=== PATIENT | male | born 1940 | race Caucasian/White ===

== ENCOUNTER → 2019-09-25 11:09 | Outpatient (BNVA) | payer MEDICARE, SELFPAY | PROVIDERS: Family Provider Nurse Practitioner; Visit Provider Nurse Practitioner | DX: E11.65 Type 2 diabetes mellitus with hyperglycemia (principal); I10 Essential (primary) hypertension; I25.10 Atherosclerotic heart disease of native coronary artery without angina pectoris; E78.5 Hyperlipidemia, unspecified; H93.12 Tinnitus, left ear | CPT/HCPCS: 80053; 83036; 84443 ==

== ENCOUNTER 2020-02-14 18:04 | Inpatient (IN) | payer MEDICARE, SELFPAY ==
[2020-02-14] VITALS (9 sets, daily range): BP systolic 143–178; BP diastolic 66–86; PULSE 56–82; RESP 16–20; TEMP 36.8; O2SAT 96–98; BMI 25.9
--- NOTE | 2020-02-14 18:19 | XR_ITS ---
WS: [id number] Portable AP upright chest, 02/14/2020 Clinical Data: chest pain Comparison: PA and lateral chest, 08/18/2019 Findings: No nodules, masses or effusions are seen. The heart is normal. The pulmonary vascularity is not increased. No pneumonia or pneumothorax is seen. Midline sternotomy sutures are seen. The aortic arch and descending aorta show calcification. XR/XR chest 1V portable [id number] Impression: Atherosclerosis.
--- NOTE | 2020-02-14 18:19 | ECG_ITS ---
Measurements Intervals [place] Rate: 67 P: 59 MN: 182 QRS: 8 QRSD: 105 T: 71 QT: 375 QTc: 398 SINUS RHYTHM POSSIBLE LEFT ATRIAL ENLARGEMENT [-0.1mV P WAVE IN V1/V2] NONSPECIFIC ST & T-WAVE ABNORMALITY No previous ECG available for comparison Electronically Signed On 02-15-2020 20:51:58 CDT by Rosario Girard M.D. [id number]
[2020-02-14 18:44] LABS: INR 1.02 (0.8-1.2)
[2020-02-14 18:51] LABS: Basophils % 0.5 %; Eosinophils # 0.1 10^3/uL (0.0-0.8); Hematocrit 46.9 % (42.0-52.0); Hemoglobin 14.9 g/dL (11.7-16.6); Lymphocytes # 2.4 10^3/uL (0.8-4.8); Lymphocytes % 33.4 %; Mean Corpuscular HGB Conc 31.8 g/dL (30.0-36.0); Mean Corpuscular Hemoglobin 29.4 pg (28.0-34.0); Mean Corpuscular Volume 92.7 fL (80-94); Mean Platelet Volume 11.2 fL (7.4-10.4); Monocytes # 0.5 10^3/uL (0.2-0.9); Monocytes % 6.4 %; Neutrophils # 4.3 10^3/uL (1.8-7.7); Neutrophils % 58.4 %; Nucleated Red Blood Cells % 0 %; Platelet Count 165 10^3/cmm (130-400); Red Blood Count 5.06 10^6/uL (4.1-5.3); Red Cell Distribution Width 13.2 % (12.1-15.1); White Blood Count 7.3 10^3/uL (4.0-10.0)
--- NOTE | 2020-02-14 18:54 | PC.NURSE ---
Nitro drip started at this time.
[2020-02-14] MEDS: nitroglycerin drip 50 MG/250 ML PREMIX IV (18:55)
[2020-02-14 19:00] LABS: Troponin(5th) Baseline 45 ng/L (0-15)
--- NOTE | 2020-02-14 19:01 | W.ED.CHESTPA ---
HPI - Chest Pain General: Chief Complaint: Chest Pain Stated Complaint: CHEST PAIN X 2 DAYS Time Seen by Provider: 02/14/20 18:07 Source: patient and EMS Mode of arrival: EMS Limitations: no limitations History of Present Illness: HPI narrative: Patient is an 80-year-old gentleman with a history of coronary artery disease status post three-vessel CABG and stents. He presents with chest pain that has been on and off for about 2 days but got much worse last night about 11 PM. He took a nitroglycerin last night and the pain improved. 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 He therefore called the ambulance and he was given another nitroglycerin which helped his pain but did not relieve it. Ambulance called [facility] and they started him on a nitroglycerin drip which took his pain down to 0. He denies dizziness, nausea, diaphoresis. EKG findings by the ground ambulance and [facility] shows ST depressions from V3 through V6 complaint: chest pain Associated symptoms: Deny abdominal pain, dyspnea, fever(s), nausea, palpitations or vomiting Review of Systems General: Reports: 10 or more systems reviewed and unremarkable except in HPI and below Const: Denies: fever(s), chills or body aches Eyes: Denies: change in vision or blurry vision ENMT: Denies: throat pain, enlarged tonsils, odynophagia, hoarseness, mouth pain or swelling of lips/tongue Card: Reports: chest pain; Denies: palpitations, irregular heart rhythm, edema or swelling of feet/ankles Resp: Denies: dyspnea, productive cough or non-productive cough GI: Denies: abdominal pain, nausea or vomiting : Denies: flank pain, dysuria, urinary frequency, urinary urgency or urinary hesitancy Musc: Denies: neck pain, back pain or extremity swelling Skin/Breast: Denies: rash, pruritus or erythema Neuro: Denies: headache(s), numbness in extremities or weakness in extremities Endo: Denies: polyuria, polydipsia or tired all the time [facility] ED PFSH: Medical History Aortic heart murmur Atherosclerotic heart disease of [place] coronary artery without angina pectoris B12 deficiency Benign essential HTN Carotid artery stenosis Less than 50% stenosis bilateral ICA moderate lateral mentis plaque Chronic gastroesophageal reflux disease Diabetes mellitus with neuropathy Dyslipidemia Mitral regurgitation Mitral regurgitation PAD (peripheral artery disease) PTSD (post-traumatic stress disorder) [place] PUD (peptic ulcer disease) SOB (shortness of breath) Type 2 diabetes mellitus with hyperglycemia Vitamin D insufficiency Surgical History [place]/O cardiac [place] [facility] [place] no revascularizable lesion was managed medically History of appendectomy History of coronary artery stent placement 2012 Found to have three-vessel coronary disease high-grade lesion in venous graft to the obtuse marginal, [place] to the LAD was found to be patent, underwent PCI of the venous graft, History of percutaneous coronary intervention [place]: June Saphenous venous graft to obtuse marginal 1 and 2 History of umbilical hernia repair 1984 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 Family History Other Diabetes Heart disease Hypertension Social History Smoking and tobacco status: never smoked Second hand smoke exposure: No Smoking risk assessment/counseling performed?: No Alcohol intake: never Desire information about alcohol rehabilitation?: No Counseling given: No Desire information about substance/drug rehabilitation?: No Counseling given: No Caregiver/support person: No Lives independently: Yes Household members: spouse Housing: House Marital status: Number of children: 4 Number of grandchildren: 20 service: No Pets and animals: Yes Pets & animals: cat(s) History of recent travel: No Current gender identity: Male Physical Exam Const: COMMON NORMALS: no acute distress, average body habitus, patient oriented x3, no limitations, healthy appearing, alert and well nourished HENMT: COMMON NORMALS: normocephalic, atraumatic and moist oral mucous membranes HEAD & SCALP: normocephalic and atraumatic Eye: COMMON NORMALS: Equal, round and reactive pupils present, EOMs intact bilaterally, conjunctivae normal and no scleral icterus CONJUNCTIVA: Yes conjunctivae normal PUPIL: Yes Equal, round and reactive pupils present Neck/C-Spine: COMMON NORMALS: full ROM, supple, no meningeal signs, no JVD and No carotid bruits Chest: COMMONS NORMALS: normal inspection of the chest and normal palpation of entire chest wall Resp: COMMON NORMALS: normal respiratory effort, No retractions, No use of accessory muscles, clear to auscultation bilaterally and percussion normal AUSCULTATION: clear to auscultation bilaterally PERCUSSION: percussion normal Cardio: COMMON NORMALS: no JVD, regular rate, regular rhythm, S1 normal heart sound present, S2 normal heart sound present, No gallops present (Cardio), No clicks present (Cardio), No murmurs present (Cardio), No rub (Cardio) and Peripheral pulses 2+ throughout RATE: regular rate RHYTHM: regular rhythm HEART SOUNDS: S1 normal heart sound present and S2 normal heart sound present PERIPHERAL PULSES: Peripheral pulses 2+ throughout GI: COMMON NORMALS: Normal to inspection, nondistended, normoactive bowel sounds present, Soft to palpation, non-tender, No hepatosplenomegaly present, no masses and no bruits PALPATION: Yes Soft to palpation and Yes No hepatosplenomegaly present : COMMON NORMALS: Yes no CVA tenderness BLADDER/KIDNEY EXAM: Yes no CVA tenderness Back/Pelvis: COMMON NORMALS: no CVA tenderness Extremity: COMMON NORMALS: normal to inspection, full ROM, capillary refill normal, no calf tenderness and no pedal edema Neuro: COMMON NORMALS: patient oriented x3 SENSORIUM/ORIENTATION: Yes alert MENINGEAL SIGNS: Yes no meningeal signs Skin: COMMON NORMALS: no rashes or lesions noted, no wounds, turgor normal, no jaundice, no petechiae and no mottling GENERAL SKIN EXAM: no rashes or lesions noted and turgor normal Course Reevaluation(s): Reevaluation #1: Discussed his EKG findings and baseline troponin with the patient features suggestive of a non-STEMI. Advised inpatient stay and management of further work-up. He voiced understanding and is in agreement with the plan. Time: 19:30 Consultations: Consultation #1: Discussed with Dr. Girard, side boss marketing automation specialist. Admit the patient and treat as a case of a non-STEMI. Time: 19:33 Consultation #2: Dr. Blum, hospitalist. He kindly accepted the patient to his service. Time: 19:40 Vital Signs: Vital signs: Vital Signs Temperature 98.3 F 02/14/20 18:06 Pulse Rate 58 L 02/14/20 20:56 Respiratory Rate 16 02/14/20 20:56 Blood Pressure 166/86 02/14/20 20:56 Pulse Oximetry 96 02/14/20 18:14 MDM - Chest Pain MDM Narrative: Medical decision making narrative: Patient with clinical features suggestive of a non-STEMI. He has been having chest pain for about 2 days but became more persistent today. He does have EKG changes with ST depression in the lateral leads and his troponin is elevated. He is being admitted as a case has a non-STEMI for further evaluation and management. Medical Records: Attestation: I reviewed the patient's medical records. Lab Data: Attestation: I reviewed the patient's lab results. Labs: Lab Results 02/14/20 02/14/20 02/14/20 Range/Units 18:30 18:30 18:30 WBC 7.3 (4.0-10.0) 10^3/ uL RBC 5.06 (4.1-5.3) 10^6/u L Hgb 14.9 (11.7-16.6) g/dL Hct 46.9 (42.0-52.0) % MCV 92.7 (80-94) fL MCH 29.4 (28.0-34.0) pg MCHC 31.8 (30.0-36.0) g/dL RDW 13.2 (12.1-15.1) % Plt Count 165 (130-400) 10^3/c mm MPV 11.2 H (7.4-10.4) fL Neut % (Auto) 58.4 % Lymph % (Auto) 33.4 % [place] % (Auto) 6.4 % Eos % (Auto) 1.0 % Baso % (Auto) 0.5 % Neut # (Auto) 4.3 (1.8-7.7) 10^3/u L Lymph # (Auto) 2.4 (0.8-4.8) 10^3/u L [place] # (Auto) 0.5 (0.2-0.9) 10^3/u L Eos # (Auto) 0.1 (0.0-0.8) 10^3/u L Baso # (Auto) 0.0 (0.0-0.1) 10^3/u L Nucleated RBC % (a uto) 0 % Nucleated RBCs # 0.0 /100WBC PT 13.70 H (10.5-13.3) SECO NDS INR 1.02 (0.8-1.2) Troponin T Baselin e 45 H (0-15) ng/L EKG Data^: EKG 1: Attestation: I personally reviewed and interpreted this EKG as follows: EKG interpretation date: 02/14/20 EKG interpretation time: 12:23 Prior EKG tracings: not available for review Interpretation: Normal sinus rhythm. Heart rate [address] depression V4 V5 and V6. ST depression in leads I and II. Discharge Plan Discharge Patient Disposition: Admitted As Inpatient Admit Provider: Allan Blum Clinical Impression: Non-ST elevated myocardial infarction Condition: Stable Coding Level of Care Code ED Construction Executive for Chg Fwd Exam Comprehensive
--- NOTE | 2020-02-14 19:44 | P.HP_ITS ---
Providers/Chief Complaint Primary Care Provider: Martínez Diehl, ANTOLIN-C Chief Complaint: CHEST PAIN X 2 DAYS History of Present Illness Oscar Telles is a 80 year old male who has complex cardiac history, CABG 1992, cardiac catheterization 2012 three-vessel disease, [place] to LAD patent, PCI of venous graft, 2016 and 18 percutaneous intervention of saphenous venous graft to obtuse marginal in [place], 2014 cardiac catheterization at [facility] [place] revealed no revascularizable lesion, follows up with Dr. Girard came in today with persistent chest pain. 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 He is describes this chest pain as chest pressure, 7/10, shortness of breath on exertion and without orthopnea, PND, fever, chills, nausea or vomiting but this pain is radiating towards his shoulder blades. No history of syncope or abdominal pain. Patient has not smoked in his life, no previous history of aortic aneurysm or dissection. He was flown to the [facility] ER. He was started on nitro drip in the helicopter Diagnostics in the ER revealed ACS, he was given first full therapeutic dose of Lovenox, I am obtaining CTA chest abdomen pelvis to rule out aortic dissection which could present with ACS Troponin 45, EKG showing ST depression in anterolateral leads He is bradycardic, hypertensive, chest x-ray did not show widened mediastinum Currently on nitro drip at 10 mics per minute No pulse deficit noted on clinical exam Review of Systems Const: Reports: fatigue and malaise; Denies: fever(s), chills or body aches Eyes: Denies: change in vision ENMT: Denies: throat pain Card: Reports: chest pain and dyspnea on exertion; Denies: irregular heart rhythm, swelling of feet/ankles, syncope or orthopnea Resp: Reports: dyspnea GI: Denies: abdominal pain, nausea or vomiting : Denies: flank pain Musc: Denies: neck pain Skin/Breast: Denies: rash Neuro: Denies: headache(s) Psych: Denies: anxiety Endo: Denies: polyuria Jon[place]/Lymph: Denies: easy bruising All/Imm: Denies: urticaria Medications/Allergies Home Medications Medication Instructions Recorded Confirmed Last Taken Type albuterol sulfate 2.5 mg INHALATION Q4H PRN 09/22/19 10/26/19 Unknown History blood sugar diagnostic #10 each 09/22/19 10/26/19 Unknown History cholecalciferol (vitamin D3) 25 2,000 unit PO QDAY 09/22/19 10/26/19 Unknown History mcg (1,000 unit) capsule cyanocobalamin (vitamin B-12) 1,000 mcg PO QDAY 09/22/19 10/26/19 Unknown History 1,000 mcg tablet amlodipine 5 mg tablet 5 mg PO QDAY #90 tab 09/25/19 10/26/19 Unknown Rx fenofibrate nanocrystallized 48 mg 48 mg PO QDAY #90 tab 09/25/19 10/26/19 Unknown Rx tablet sertraline 100 mg tablet 100 mg PO QDAY tab 09/25/19 10/26/19 Unknown History nitroglycerin 0.4 mg sublingual 0.4 mg SUBLINGUAL Q5M PRN 30 Days 10/26/1910/26 Unknown Rx tablet #30 tab insulin human U-100 NPH-regulr See Rx Instructions SUBCUT BID #60 11/15/19 Unknown Rx 70-30 mix 100 unit/mL subcutaneous ml susp irbesartan 150 mg tablet 150 mg PO QDAY #90 tab 01/17/20 Unknown Rx clopidogrel 75 mg tablet 75 mg PO QDAY #90 tab 01/22/20 Unknown Rx Allergies Allergy/AdvReac Type Severity Reaction Status Date / Time NSAIDS (Non-Steroidal Allergy Unknown Verified 09/21/19 11:05 Anti-Inflamma Penicillins Allergy Unknown Verified 09/21/19 11:05 sulfamethoxazole Allergy Unknown Verified 09/21/19 11:08 [From Bactrim] trimethoprim [From Bactrim] Allergy Unknown Verified 09/21/19 11:08 metformin AdvReac ADR-Gastrointestinal Verified 09/21/19 11:05 Upset PFSH Acute PFSH: Medical History Aortic heart murmur Atherosclerotic heart disease of [place] coronary artery without angina pectoris B12 deficiency Benign essential HTN Carotid artery stenosis Less than 50% stenosis bilateral ICA moderate lateral mentis plaque Chronic gastroesophageal reflux disease Diabetes mellitus with neuropathy Dyslipidemia Mitral regurgitation Mitral regurgitation PAD (peripheral artery disease) PTSD (post-traumatic stress disorder) [place] P[place] (peptic ulcer disease) SOB (shortness of breath) Type 2 diabetes mellitus with hyperglycemia Vitamin D insufficiency Surgical History H/O cardiac catheterization At [facility] [place] in 2014 no revascularizable lesion was managed medically History of appendectomy History of coronary artery stent placement 2012 Found to have three-vessel coronary disease high-grade lesion in venous graft to the obtuse marginal, [place] to the LAD was found to be patent, underwent PCI of the venous graft, History of percutaneous coronary intervention [place]: June Saphenous venous graft to obtuse marginal 1 and 2 History of umbilical hernia repair 1983 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 Family History Other Diabetes Heart disease Hypertension Social History Smoking and tobacco status: never smoked Second hand smoke exposure: No Smoking risk assessment/counseling performed?: No Alcohol intake: never Desire information about alcohol rehabilitation?: No Counseling given: No Desire information about substance/drug rehabilitation?: No Counseling given: No Caregiver/support person: No Lives independently: Yes Household members: spouse Housing: House Marital status: Number of children: 4 Number of grandchildren: 20 service: No Pets and animals: Yes Pets & animals: cat(s) History of recent travel: No Current gender identity: Male Vitals/I&O/Wt Last Vital Signs Temp 98.3 F 02/14/20 18:06 Pulse 68 02/14/20 18:14 Resp 19 H 02/14/20 18:14 BP 160/73 02/14/20 18:14 Pulse Ox 96 02/14/20 18:14 Weight last 48 hrs Weight 79.832 kg Physical Exam Narrative: EXAM NARRATIVE: Head to toe examination Patient uncomfortable in his bed Currently chest pain-free No pulse deficit No visual disturbance Hearing impaired right better than left S1, S2 sinus bradycardia systolic murmur grade 2/6 Abdomen soft nontender has open heart surgery scar aguilar Lower extremity no signs of edema gangrene or ulcer Appropriate mood and affect EOMI, PERRLA No pulsating mass noted around abdominal midline region No active respiratory Bilateral good breath sounds with mild crackles left greater than right Data : 02/14/20 18:30 Other data: Supplemental Info 07/2019 Features of aortic valve sclerosis Normal LV size with borderline normal ejection fraction of 50- 55%. Wall motion abnormality as mentioned above Mild concentric left ventricular hypertrophy Type I diastolic dysfunction. Mild biatrial enlargement. Thickened mitral valve. Moderate mitral valve regurgitation. Mild tricuspid valve regurgitation. Estimated pulmonary artery peak systolic pressure of 25 mmHg There is no pericardial effusion. There are no intracardiac masses. Compared to the previous study from 09/03/2014, the wall motion abnormalities appeared to be new ECHOCARDIOGRAPHY, COMPLETE ([id number]) 09/03/2014 Normal left ventricular size, systolic function and wall thickness, with no regional wall motion abnormalities. Normal left ventricular wall thickness. Grade I/IV diastolic dysfunction (abnormal relaxation filling pattern), normal to mildly elevated filling pressures. Left ventricular ejection fraction is estimated at 65 %. Structurally normal mitral valve. Mild-moderate mitral valve regurgitation. There are no prior echocardiogram studies to compare. EVENT MONITOR ([id number]) 08/09/2014 - 08/29/2014 INTERPRETATION: A total of 6 strips were transmitted. Patient activated: 3. Rest of 3 were auto-detected. None of them were critical or serious. Baseline heart rate was 61 beats per minute. One strip transmitted on 08/24/2014 at 2 2:07 PM showed sinus arrhythmia with atrial run for three beats at 80bpm. Rest of all the strips showed sinus rhythm with sinus arrhythmia. LEFT HEARTH CATHETERIZATION ([id number]) 10/18/2014 Severe three-vessel coronary disease Patent [place] to the LAD Patent the sequential graft to the diagonal and the obtuse marginal Normal LV ejection fraction Patent stented segment of the distal limb of the sequential graft to the diagonal/obtuse marginal artery Normal LVEDP Ultrasound, Abdomen [03/13/20 A&P Assessment and plan (1) NSTEMI (non-ST elevated myocardial infarction): ST depression anterolateral leads Currently sinus bradycardia and hypertensive Chest pain-free on nitro drip at 10 mics per minute He will need another angiogram during his extensive cardiac history He is allergic to aspirin, he gets face swelling, he is not sure why he is not on atorvastatin, his is stating probably it caused muscle cramps, metoprolol succinate was discontinued because of bradycardia I would continue full dose Lovenox, high-dose statin, irbesartan Dr. Girard has been consulted, patient has ejection fraction 50 to 55% biatrial enlargement, type I diastolic dysfunction, moderate mitral valve regurgitation Would rule out aortic dissection which could present with ACS and chest pain radiating to her shoulder blades Status: Acute (2) Dyspnea on exertion: Dyspnea exertion most likely is due to underlying coronary artery disease Status: Acute (3) Mitral regurgitation: EF maintained around 55%, no surgical intervention, follows up with Dr. Girard Status: Acute Qualifiers: Cardiac valve disease etiology: nonrheumatic Qualified Code(s): I34.0 - Nonrheumatic mitral (valve) insufficiency (4) Benign essential HTN: NT he is hypertensive, Under pressure while he is on nitro drip If his pressure drops will discontinue nitro glycerin as my concern is high for RCA occlusion Status: Chronic (5) Type 2 diabetes mellitus with hyperglycemia: We will keep him on sliding scale if needed. He will stay n.p.o. in case he needs coronary intervention overnight Status: Chronic Qualifiers: Diabetes mellitus intermediate accountant insulin use: with mcc use Qualified Code(s): E11.65 - Type 2 diabetes mellitus with hyperglycemia; Z79.4 - long term care administrator (current) use of insulin Attestations Medical Necessity Statement*: Anticipating stay in the hospital to cross more than 2 midnights he will need an coronary angiogram Time Spent in Patient Care: (>than 50% of time spent in counselling and/or direct pt care on unit) . 60mins Coding Level of Care Code Acute Fitness Instructor for g Fwd Diagnoses NSTEMI (non-ST elevated myocardial infarction) I21.4 Dyspnea on exertion R06.00 Mitral regurgitation I34.0 Cardiac valve disease etiology: nonrheumatic Benign essential HTN I10 Type 2 diabetes mellitus with hyperglycemia E11.65; Z79.4 Diabetes mellitus mcc insulin use: with intermediate accountant use
--- NOTE | 2020-02-14 20:26 | CTR_ITS ---
PROCEDURE INFORMATION: Exam: CT Angiography Chest With Contrast Exam date and time: 02/14/2020 10:20 PM Age: 80 years old Clinical indication: Chest pain; Abdominal pain; Generalized; Prior surgery; Surgery type: Cabg, appy, hernia, stents; Additional info: Chest pain radiating towards shoulder blades and has acs TECHNIQUE: Imaging protocol: Computed tomographic angiography of the chest with intravenous contrast. 3D rendering: MIP and/or 3D reconstructed images were created by the technologist. Radiation optimization: All CT scans at this facility use at least one of these dose optimization techniques: automated exposure control; mA and/or kV adjustment per patient size (includes targeted exams where dose is matched to clinical indication); or iterative reconstruction. Contrast material: VISI 320; Contrast volume: 95 ml; Contrast route: IV; COMPARISON: No relevant prior studies available. RADIATION DOSE METRICS: Total DLP: 1820.2 mGy-cm FINDINGS: Pulmonary arteries: Normal. No pulmonary emboli. Aorta: Unremarkable. No aortic aneurysm. No aortic dissection. Lungs: Unremarkable. No consolidation. No masses. Pleural space: Unremarkable. No pneumothorax. No pleural effusion. Heart: Unremarkable. No cardiomegaly. No pericardial effusion. Lymph nodes: Unremarkable. No enlarged lymph nodes. Bones/joints: Sternotomy wires. Soft tissues: Unremarkable. IMPRESSION: Negative for pulmonary embolus or airspace infiltrate. PROCEDURE INFORMATION: Exam: CT Angiography Abdomen and Pelvis With Contrast Exam date and time: 02/14/2020 10:20 PM Age: 80 years old Clinical indication: Chest pain; Abdominal pain; Generalized; Prior surgery; Surgery type: Cabg, appy, hernia, stents; Additional info: Chest pain radiating towards shoulder blades and has acs TECHNIQUE: Imaging protocol: Computed tomographic angiography of the abdomen and pelvis with intravenous contrast material. 3D rendering: MIP and/or 3D reconstructed images were created by the technologist. Radiation optimization: All CT scans at this facility use at least one of these dose optimization techniques: automated exposure control; mA and/or kV adjustment per patient size (includes targeted exams where dose is matched to clinical indication); or iterative reconstruction. Contrast material: VISI 320; Contrast volume: 95 ml; Contrast route: IV; COMPARISON: No relevant prior studies available. RADIATION DOSE METRICS: Total DLP: 1820.2 mGy-cm FINDINGS: Aorta: No aortic aneurysm. No aortic dissection. Celiac trunk and mesenteric arteries: No occlusion or significant stenosis. Renal arteries: No occlusion or significant stenosis. Right iliac arteries: No occlusion or significant stenosis. Left iliac arteries: No occlusion or significant stenosis. Liver: No mass. Gallbladder and bile ducts: Cholelithiasis. Pancreas: Unremarkable. No mass. No ductal dilation. Spleen: Unremarkable. No splenomegaly. Adrenals: Unremarkable. No mass. Kidneys and ureters: Unremarkable. No solid mass. No hydronephrosis. Stomach and bowel: Diverticulosis without diverticulitis. Appendix: No evidence of appendicitis. Intraperitoneal space: Unremarkable. No free air. No significant fluid collection. Lymph nodes: Unremarkable. No enlarged lymph nodes. Bladder: Unremarkable. No mass. Reproductive: Unremarkable as visualized. Bones/joints: No acute fracture. No dislocation. Soft tissues: Unremarkable. CT/CT angio chest abdomen pelvis IMPRESSION: 1. Negative for acute inflammatory process. 2. Cholelithiasis. 3. Diverticulosis without diverticulitis. Radiation Dose CTDIVOL = (mGy): DLP = 1820.2~1820.2 (mGy-cm)
[2020-02-14 20:57] LABS: Troponin 5 2HR 62.71 ng/L (0-15)
[2020-02-14 21:49] LABS: Troponin 5 2HR Delta 17.71 ABS# (0-10)
[2020-02-14 22:17] LABS: Alanine Aminotransferase 16 U/L (0-41); Albumin Level 4.8 g/dL (3.5-5.2); Alkaline Phosphatase 70 IU/L (40-130); Anion Gap 20.5 (5-19); Aspartate Amino Transferase 22 U/L (0-40); Blood Urea Nitrogen 34 mg/dL (8-23); Calcium 9.4 mg/dL (8.5-10.5); Carbon Dioxide 23 mmol/L (22-29); Chloride 103 mmol/L (98-107); Globulin 2.9 g/dL (1.3-4.6); Glucose 114 mg/dL (65-115); Lipase 40 U/L (13-60); NT Pro B Type Natriuretic Pept 173 pg/mL (0-450); Osmolality Calculated 292 mOsm/kg (285-295); Potassium 4.5 mmol/L (3.5-5.1); Sodium 142 mmol/L (136-145); Total Bilirubin 0.5 mg/dL (0.15-1.2); Total Protein 7.7 g/dL (6.6-8.7)
--- NOTE | 2020-02-14 22:19 | PC.NURSE ---
CMP was ordered at 1830. Lab resulted a CBC. pt was admitted and ready to tx to floor at 2100. unable to tx due to pending CT. pt is also on a Nitro drip. called to FU with lab concerning result status at 2029 stated it was in the centerfuge. FU again at 2145 told he hadnt even been started. received rewsults at 2209. notified CT to come and scan pt. will tx with monitor and continue to floor post scan.
[2020-02-14] MEDS: iodixanol 320 mg/mL 100mL Btl IV (22:50)
--- NOTE | 2020-02-14 22:52 | PC.NURSE ---
Patient arrived to the floor from the ED after report was received via phone. Patient is alert and oriented and ambulatory. Patient is not complaining of pain at this time and was educated to let us know if he begins having chest pain, shortness of breath, ect. Patient was given a hospital gown to change out of street clothes. Patient states that he is hard of hearing. Patient has nitro gtt running at 10 mcg. Will monitor blood pressure frequently. Patient has been oriented to his room and has call light within reach.
--- NOTE | 2020-02-14 23:04 | PC.NURSE ---
Unable to obtain med rec at this time. Patient states I can't tell you the name of them, but I can tell you what some of them are for. Patient states my takes care of all that stuff. Dr. Girard's office should have a list. Will attempt to contact or office in morning.
--- NOTE | 2020-02-14 23:32 | PC.NURSE ---
Able to get patient's medication list from by telephone with patient's permission. Dr. Blum notified of patient stating he took his 75 mg of Plavix at home today and that there is another does ordered for now. Ordered to hold dose.
[2020-02-15] VITALS (83 sets, daily range): BP systolic 83–152; BP diastolic 46–78; PULSE 53–75; RESP 9–31; TEMP 36.6; O2SAT 92–99
[2020-02-15] MEDS: losartan 50 mg Tablet PO (00:05)
[2020-02-15] MEDS: enoxaparin 100 mg/mL Syringe 80 MG SUBCUT ×2 (00:05→12:00)
--- NOTE | 2020-02-15 00:09 | PC.NURSE ---
Patient has been educated on NPO diet order.
--- NOTE | 2020-02-15 00:19 | ECG_ITS ---
Measurements Intervals [place] Rate: 58 P: -31 HI: 173 QRS: 15 QRSD: 108 T: 66 QT: 431 QTc: [address] DEPRESSION [0.05+ mV ST DEPRESSION] No previous ECG available for comparison Electronically Signed On 02-15-2020 20:59:51 CDT by Rosario Girard M.D. [id number]
[2020-02-15 00:55] LABS: Troponin 5 6HR 82.02 ng/L (0-15)
[2020-02-15 00:56] LABS: Troponin 5 6HR Delta 37.02 ng/L (0-12)
[2020-02-15] MEDS: morphine 4 mg/mL SDV 1 mL IVP (02:41)
--- NOTE | 2020-02-15 03:11 | ECG_ITS ---
Measurements Intervals [place] Rate: 68 P: -1 OR: 178 QRS: 23 QRSD: 117 T: 87 QT: 418 QTc: 445 SINUS RHYTHM WITH OCCASIONAL SUPRAVENTRICULAR PREMATURE COMPLEXES MODERATE INTRAVENTRICULAR CONDUCTION DELAY [110+ ms QRS DURATION] MARKED ST DEPRESSION, CONSIDER SUBENDOCARDIAL INJURY [0.2+ mV ST DEPRESSION] No previous ECG available for comparison Electronically Signed On 02-15-2020 20:53:30 CDT by Rosario Girard M.D. [id number]
--- NOTE | 2020-02-15 03:57 | PC.NURSE ---
Patient began complaining of chest pain 5/10. Nitro was titrated up to 50 mcg. Patient was given PRN Morphine. Patient stated this was not helping his pain. Dr. Blum notified and EKG ordered. Dr. Blum came to see patient. Patient's nitro is currently running at 70 mcg. Blood pressure is currently 133/75 and is being frequently monitored. Patient states his pain is easing up a little down to a 3/10. Will continue to monitor.
--- NOTE | 2020-02-15 04:21 | PC.NURSE ---
Patient states that his pain is down to a 1/10 now. Will continue to monitor.
[2020-02-15 05:17] LABS: Basophils % 0.6 %; Eosinophils # 0.1 10^3/uL (0.0-0.8); Eosinophils % 1.2 %; Hematocrit 43.1 % (42.0-52.0); Hemoglobin 13.7 g/dL (11.7-16.6); Lymphocytes # 2.1 10^3/uL (0.8-4.8); Lymphocytes % 31.7 %; Mean Corpuscular HGB Conc 31.8 g/dL (30.0-36.0); Mean Corpuscular Hemoglobin 29.4 pg (28.0-34.0); Mean Corpuscular Volume 92.5 fL (80-94); Mean Platelet Volume 11.5 fL (7.4-10.4); Monocytes # 0.5 10^3/uL (0.2-0.9); Monocytes % 6.9 %; Neutrophils % 59.3 %; Nucleated Red Blood Cells % 0 %; Platelet Count 152 10^3/cmm (130-400); Red Blood Count 4.66 10^6/uL (4.1-5.3); Red Cell Distribution Width 13.1 % (12.1-15.1); White Blood Count 6.7 10^3/uL (4.0-10.0)
[2020-02-15 05:27] LABS: Anion Gap 16.6 (5-19); Blood Urea Nitrogen 27 mg/dL (8-23); Calcium 9.4 mg/dL (8.5-10.5); Carbon Dioxide 25 mmol/L (22-29); Chloride 101 mmol/L (98-107); Glucose 255 mg/dL (65-115); Osmolality Calculated 292 mOsm/kg (285-295); Potassium 4.6 mmol/L (3.5-5.1); Sodium 138 mmol/L (136-145)
--- NOTE | 2020-02-15 06:04 | PC.NURSE ---
Nurse asks patient if pain is gone, he states I think so. Patient's blood pressure is 84/46. Nitro titrated down to 5 mcg. Will continue to monitor.
[2020-02-15 06:25] LABS: Glucose Point of Care 272 mg/dL (70-110)
[2020-02-15] MEDS: fenofibrate 48 mg Tablet PO (08:19)
[2020-02-15] MEDS: sertraline 100 mg Tablet PO (08:19)
[2020-02-15] MEDS: atorvastatin 40 mg Tablet 80 MG PO (08:20)
[2020-02-15] MEDS: clopidogrel 75 mg Tablet PO (08:20)
--- NOTE | 2020-02-15 10:28 | PC.CHAP ---
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 [] Patient/Family/Request visit [] Outpatient visit [] Follow-up visit [] Physician referral [] Code/Alert [x] Routine visit [] Staff referral [] Actively dying [] Patient sleeping [] Family support [] [] Out of room [] Palliative care [] [] Receiving care in room [] Pre-surgical visit [] Trauma [] Long length of stay [] ICU visit [] Other: Relational/Emotional Strength [x] Patient feels connected with others/family/visitors/staff [] Distress [] Loneliness/isolation [] Abandonment Spirituality of Patient [x] Person of Babita [x] Attends Hinduism of their Babita [x] Believes in Prayer [x] Reads Bible or Restorationist materials [] There are Spiritual issues to be addressed Drug Regulatory Affairs Specialist Interventions [x] Prayer [x] Active listening [x] Non-anxious presence [x] Spiritual/emotional support [] Crisis/trauma care [] Spiritual counseling [] Bereavement support [] Provided bereavement packet [] Provided Bible/devotional materials [] Provided toy/stuffed animal, coloring book to patient or family member [] Provided Communion [] Anointing/Hope [] Salvation [x] Completed spiritual assessment [] Other: Impact on Illness or Injury [] Angry [] Fearful [] Anxious [] Often cries [] Exhaustion [] Unable to work [] Unable to attend tenriism [] Unable to walk/stand [] Unable to read [] Unable to drive [] Unable to eat/drink [] Unable to sleep [] Unable to be with family [] Patient intubated [x] Other: Summary Patient expressed deep babita and continued service to [employer]. Time spent with patient 10 minutes
[2020-02-15 11:35] LABS: Glucose Point of Care 192 mg/dL (70-110)
--- NOTE | 2020-02-15 11:49 | USCV_ITS ---
Oscar Telles Age: 80 Gender: M : 1940 Exam Date: 02/15/2020 12:31 Ordering Phys: Rosario Girard MD ([email or web address]) Technologist: Ramila Alcala Exam Location: [facility] [place] Indication: CHEST PAIN BP: 108 / 59 HR: 57 Rhythm: Sinus Technical Quality: Adequate MEASUREMENTS (Male / Female) Normal Values 2D ECHO LV Diastolic Diameter PLAX 5.0 cm 4.2 - 5.9 / 3.9 - 5.3 cm LV Systolic Diameter PLAX 4.5 cm LV Chamber Size 3.9 cm IVS Diastolic Thickness 1.4 cm 0.6 - 1.0 / 0.6 - 0.9 cm IVS Systolic Thickness 1.5 cm LVPW Diastolic Thickness 0.9 cm 0.6 - 1.0 / 0.6 - 0.9 cm LVPW Systolic Thickness 1.1 cm RV Chamber Size 2.4 cm LVOT Diameter 2.0 cm LV Ejection Fraction 2D Teich 21.3 % LV Ejection Fraction MOD 2C 48.8 % LV Ejection Fraction 2C AL 49.1 % LA Diameter 3.8 cm LA Width 3.5 cm LA Height 4.7 cm RA Width 3.0 cm RA Height 5.0 cm Aorta at Sinotubular Diameter 3.2 cm M-MODE LV Diastolic Diameter MM 6.8 cm 4.2 - 5.9 / 3.9 - 5.3 cm LV Systolic Diameter MM 4.5 cm LV Ejection Fraction MM Teich 60.3 % IVS Diastolic Thickness MM 0.6 cm 0.6 - 1.0 / 0.6 - 0.9 cm IVS Systolic Thickness MM 1.8 cm LVPW Diastolic Thickness MM 1.3 cm 0.6 - 1.0 / 0.6 - 0.9 cm LVPW Systolic Thickness MM 1.7 cm RV Diastolic Diameter MM 1.0 cm Aortic Annulus Diameter 3.4 cm LA Ao Ratio MM 1.1 MV E Point Septal Separation 1.4 cm DOPPLER AV Peak Velocity 172.0 cm/s LVOT Peak Velocity 86.0 cm/s AV Area Cont Eq vti 2.0 cm squared AV Area Cont Eq pk 1.6 cm squared MV Area PHT 5.0 cm squared Mitral E to A Ratio 2.3 MV E' Velocity 9.0 cm/s Mitral E to MV E' Ratio 17.1 Mitral E to LV E' Lateral Ratio 13.3 Mitral E to LV E' Septal Ratio 24.2 TR Peak Velocity 255.0 cm/s TR Peak Gradient 26.0 mmHg TR Mean Velocity 195.7 cm/s TR Mean Gradient 16.8 mmHg TR Velocity Time Integral 84.0 cm TV Peak E Velocity 65.0 cm/s Right Atrial Pressure 3.0 mmHg Pulmonary Artery Systolic Pressu 29.0 mmHg PV Peak Velocity 70.0 cm/s RV Acceleration Time 0.1 s RV Ejection Time 0.4 s RV AcT/ET 0.3 FINDINGS Left Ventricle Normal LV size with diminished ejection fraction of 49%. Hypokinetic basal and mid inferolateral and dyskinetic basal inferior wall segment. Right Ventricle Normal right ventricular size and systolic function. Right Atrium Normal right atrial size. Left Atrium Moderately increased left atrial size. Mitral Valve Thickened mitral valve. Moderate mitral valve regurgitation. Aortic Valve Thickened aortic valve. Tricuspid Valve Mild tricuspid valve regurgitation. Pulmonic Valve Pulmonic valve not well visualized. Pericardium No pericardial effusion. Aorta Plaque seen in the ascending aorta. CONCLUSIONS Normal LV size with diminished ejection fraction of 49%. Hypokinetic basal and mid inferolateral and dyskinetic basal inferior wall segment. Moderately increased left atrial size. Thickened mitral valve. Moderate mitral valve regurgitation. Thickened aortic valve. Mild tricuspid valve regurgitation. Estimated pulmonary artery peak systolic pressure 20 mmHg There is no pericardial effusion. There are no intracardiac masses. Compared to the previous study from 08/11/2019, the LV ejection fraction appears to have slightly decreased Dr Rosario Girard MD FAC (Electronically Signed) Final Date: 15 February 2020 21:18 S
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
[2020-02-15] MEDS: sodium chloride 0.9% 1,000 ML 125 ML IV (13:31)
--- NOTE | 2020-02-15 15:46 | XACV_ITS ---
Ht: 175 cm Wt: 80 kg BSA: 1.99 m2 Gender: Male : 1940 Any Known Allergies: Other Exam Priority: Routine Diagnostic Cath Status: Urgent Diagnostic Findings No significant disease noted in the Left Main, LAD, Circumflex, or RCA coronary arteries. Coronary angiography shows right dominance. The main the left main is a medium caliber vessel which appears to have a 98% tapering narrowing distally to the bifurcation. The left artery descending artery is a medium caliber vessel which was found to have high-grade lesion at the ostium. The proximal LAD was found to have high-grade around 95 to 90% diffuse stenosis to its the large sub-first septal educational administrator. Then the artery appears to be totally occluded. The left circumflex artery was found to have high-grade stenosis at the ostium. The first obtuse marginal artery appears to be totally occluded. Circumflex proper appears to run in the AV groove is an elongated slender vessel with a mild to moderate diffuse disease. The right coronary artery is a medium caliber vessel which was found to have moderate diffuse disease proximally. After the first RV branch, the artery. Be totally occluded. Grade 2-3 [id number] collaterals were noted filling of the PLV and the PDA branches. Some bridging collaterals also were noted. The [place] to the LAD was widely patent.The distal anastomotic site was in the distal LAD. Grade 2 collaterals are noted filling up the PDA branch of the right coronary artery. The sequential saphenous venous graft to the diagonal/obtuse marginal artery was found to be patent with a high-grade in-stent stenosis in the proximal segment of the graft. The obtuse marginal artery distal to the anastomosis was found to have moderate diffuse disease. The diagonal artery, distal anastomosis was found to have mild diffuse disease. Conclusions No significant disease noted in the Left Main, LAD, Circumflex, or RCA coronary arteries. Patient has prior CABG. This is an 80-year-old white female with a history of coronary disease, status post coronary artery bypass surgery, status post multiple PCI's, presented with features of unstable angina and non-ST elevation myocardial infarction. Patient continued to have chest pain and persistent EKG changes during the hospital stay. His echocardiogram revealed multiple wall motion normalities with an ejection fraction of 48%. In view of his ongoing symptoms and the other abnormality findings, in order to further evaluate his coronary status as well as the graft status, a repeat cardiac catheterization and possible PCI were recommended. Patient understood this well and consented to proceed. He underwent left heart catheterization with a left and right coronary angiogram, graft angiogram . The findings are as follows. Severe three-vessel coronary artery disease involving the proximal segments of all the 3 coronary arteries. Patent [place] to the LAD. High-grade, around 95% in-stent stenosis of the sequential venous graft to the diagonal/obtuse marginal artery. Markedly elevated LVEDP of 36 mmHg. In view of the patient's ongoing symptoms and the above abnormal objective findings, for further management of his condition, PCI of the sequential graft to the diagonal/obtuse marginal artery was thought to be appropriate. I reviewed and discussed the cardiac cath findings with Dr. Pavon. agreed with this and took over further management of this patient at this point. Recommendations Continue current medical management and risk factor modification. Diagnostic RX Recommendation: PCI w/o planned CABG LV EDP: 36 mmHg I, the attending physician, have reviewed and verified all procedure medications. Yes, all medications given per verbal order History/Risk Factors Hypertension: Yes Dyslipidemia: Yes Diabetic Therapy: Insulin Peripheral Arterial Disease (PAD): Yes Myocardial Infarction (OR): Yes Obesity: No Renal Disease: Yes Tobacco Use: Never Prior Interventions PCI: Yes CABG: Yes Valve Surgery: No Date of PCI: 06/06/2016 Report Signatures Finalized by:Dr Rosario Girard MD [facility] on 02/16/2020 12:57:11 PM
[2020-02-15] MEDS: diphenhydrAMINE 50 mg Capsule PO (16:08)
--- NOTE | 2020-02-15 16:38 | PC.NURSE ---
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
--- NOTE | 2020-02-15 16:39 | W.PM.OPSUD ---
Surgery/Procedure H&P Update DATE OF PROCEDURE: February 15, 2020 DATE H&P PERFORMED: 02/15/20 H&P UPDATE INFORMATION: I have reviewed H&P completed within last 30 days, I have examined patient prior to procedure and No changes to prior documentation PREOP DIAGNOSIS: Unstable angina/non-ST elevation myocardial infarction PLANNED PROCEDURE: Operation Date: 02/15/20 16:30 Proposed Procedures p Cardiac Catheterization(Left) - Rosario Girard MD PHYSICAL EXAM: alert, oriented x 3, not clear to auscultation bilaterally (Occasional coarse crackles) and regular rate & rhythm AIRWAY EVAL/ANESTHESIA PLAN: ASA III, Risks, benefits & alternatives of sedation and/or procedure discussed and Patient agrees to continue as planned
--- NOTE | 2020-02-15 18:25 | PM.PN ---
Subjective Subjective: Interval history: Patient seen post cardiac catheterization. He is a little lethargic from procedure. Stents were placed by Dr. Pavon with good flow post procedure Vitals/I&O/Wt Last Vital Signs Temp 97.9 F 02/15/20 04:46 Pulse 60 02/15/20 14:00 Resp 14 02/15/20 14:00 BP 96/49 02/15/20 14:00 Pulse Ox 97 02/15/20 14:00 02/15/20 02/15/20 02/15/20 06:59 14:59 22:59 Intake Total 166.50 / 166.50 Output Total 350 / 350 Balance -183.50 / -183.50 Weight last 48 hrs Weight 80.422 kg Weight 79.832 kg Physical Exam Const: OTHER: Lethargic but arousable Resp: OTHER: Clear, no accessory muscle use Cardio: OTHER: Regular rhythm, sheath is in place in the right groin with clean dressing GI: OTHER: Soft Extremity: OTHER: No edema Skin: NARRATIVE SKIN EXAM: No rashes Data : 02/15/20 04:30 02/15/20 04:30 A&P Assessment and plan (1) NSTEMI (non-ST elevated myocardial infarction): Status post stent placement x2 Status: Acute (2) Atherosclerotic heart disease of [place] coronary artery with unstable angina pectoris: Status: Acute Qualifiers: [place] vs. 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 Girard's and Dr. Pavon's assistance in this case Secondary to contrast will give some IV fluids tonight Continue Plavix, statin, fenofibrate Hold ARB secondary to renal function and contrast Sliding scale insulin for diabetes currently Have continued home Zoloft Briefly discussed with patient's granddaughter Deisy who is a nurse here Supportive care otherwise Attestations Medical Necessity Statement*: Requires ongoing inpatient stay for continued management post non-ST elevation NC with subsequent arteriogram and stent placement. 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
[2020-02-15 18:28] LABS: Glucose Point of Care 153 mg/dL (70-110)
--- NOTE | 2020-02-15 18:52 | PC.NURSE ---
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 Received bedside report from ASHLIE Rico and Pushpa DAILEY. Patient resting with eyes closed arouses to verbal stimuli. Patient is s/p [facility] with right femoral access. Sheath in place with pressure bag attached. Site is c,d,i with no s/s of bleeding or hematoma formation observed. Right lower extremity is pink, warm with palpable pulses. Patient denies pain at this time.
--- NOTE | 2020-02-15 19:48 | PC.NURSE ---
Assessed patient right groin. Remains c,d,i with no bleeding or hematoma formation observed. Reinforced site care restrictions. Patient verbalized understanding will require further reinforcement.
--- NOTE | 2020-02-15 21:49 | PC.NURSE ---
Initiated sheath pull from right groin at 2052 per protocol. Hemostasis achieved immediately. Maintained pressure for 20min. As cleaning site and ready to place dressing patient began bleeding. Again, applied pressure achieving hemostasis immediately maintaining for additional 20min. Site cleaned. No additional signs of bleeding or hematoma formation observed. Applied dressing. Patient denies pain or other discomforts. Positioned patient for comfort. Provided instruction regarding site care and restrictions. Patient verbalized complete understanding. VS monitored every 5min during procedure and remained WNL.
--- NOTE | 2020-02-15 23:18 | PC.NURSE ---
Lovenox not given. Informed Dr Blum that patient is post [facility] with right femoral access and site required 40min of constant pressure due to bleeding. Received ok to hold. Site is currently c,d,i. No s/s of bleeding or hematoma formation observed. Patient denies pain to site.
[2020-02-16] VITALS (12 sets, daily range): BP systolic 104–130; BP diastolic 53–68; PULSE 61–80; RESP 14–32; TEMP 36.6–36.8; O2SAT 92–97
[2020-02-16] MEDS: sodium chloride 0.9% 1,000 ML 75 ML IV (01:05)
--- NOTE | 2020-02-16 03:17 | PC.NURSE ---
Patient up to ambulate at this time. Dressing to right groin remains c,d,i. No s/s of bleeding or hematoma formation observed. Patient denies pain or discomfort to site. VS remained WNL. No distress observed.
[2020-02-16 05:35] LABS: Basophils % 0.4 %; Eosinophils # 0.1 10^3/uL (0.0-0.8); Eosinophils % 0.8 %; Hematocrit 41.6 % (42.0-52.0); Hemoglobin 13.1 g/dL (11.7-16.6); Lymphocytes # 2.3 10^3/uL (0.8-4.8); Lymphocytes % 28.6 %; Mean Corpuscular HGB Conc 31.5 g/dL (30.0-36.0); Mean Corpuscular Hemoglobin 29.6 pg (28.0-34.0); Mean Corpuscular Volume 93.9 fL (80-94); Monocytes # 0.8 10^3/uL (0.2-0.9); Monocytes % 9.8 %; Neutrophils # 4.8 10^3/uL (1.8-7.7); Neutrophils % 60.1 %; Nucleated Red Blood Cells % 0 %; Platelet Count 146 10^3/cmm (130-400); Red Blood Count 4.43 10^6/uL (4.1-5.3); Red Cell Distribution Width 13.2 % (12.1-15.1)
[2020-02-16 05:46] LABS: Anion Gap 18.6 (5-19); Blood Urea Nitrogen 29 mg/dL (8-23); Calcium 9.3 mg/dL (8.5-10.5); Carbon Dioxide 21 mmol/L (22-29); Chloride 102 mmol/L (98-107); Glucose 299 mg/dL (65-115); Magnesium 1.9 mg/dL (1.7-2.3); Osmolality Calculated 292 mOsm/kg (285-295); Potassium 4.6 mmol/L (3.5-5.1); Sodium 137 mmol/L (136-145)
[2020-02-16 06:19] LABS: Glucose Point of Care 264 mg/dL (70-110)
[2020-02-16] MEDS: atorvastatin 40 mg Tablet 80 MG PO (08:48)
[2020-02-16] MEDS: sertraline 100 mg Tablet PO (08:48)
[2020-02-16] MEDS: clopidogrel 75 mg Tablet PO (08:48)
[2020-02-16] MEDS: fenofibrate 48 mg Tablet PO (08:48)
--- NOTE | 2020-02-16 09:00 | PC.NURSE ---
PATIENT DENIES ANY COMPLAINTS AT THIS TIME
--- NOTE | 2020-02-16 09:03 | P.PN_ITS ---
Subjective Subjective: Interval history: The patient is feeling okay. He has no recurrence of chest pain since the coronary intervention. The vital signs are remaining stable. No significant arrhythmias on the monitor. The kidney function seems to be stable Medications: Reviewed: Yes Medication Review Details: Current Medications Acetaminophen (Tylenol) 650 mg PO Q6H PRN PRN Reason: MILD PAIN Al Hydrox/Mg Hydrox/Simethicone (Maalox) 30 ml PO Q15M PRN PRN Reason: INDIGESTION Alprazolam (Xanax) 0.25 mg PO TID PRN PRN Reason: ANXIETY Atorvastatin Calcium (Lipitor) 80 mg PO DAILY [facility] Last Admin: 02/16/20 08:48 Dose: 80 mg Documented by: Atropine Sulfate (Atropine) 0.5 mg IVP PRN PRN PRN Reason: Symptomatic bradycardia Clopidogrel Bisulfate (Plavix) 75 mg PO DAILY [facility] Last Admin: 02/16/20 08:48 Dose: 75 mg Documented by: Dextrose (D50w) 25 ml IVP ONCE PRN; Protocol PRN Reason: hypoglycemia protocol Dextrose (D50w) 50 ml IVP PRN PRN; Protocol PRN Reason: hypoglycemia protocol Fenofibrate (Tricor) 48 mg PO DAILY [facility] Last Admin: 02/16/20 08:48 Dose: 48 mg Documented by: Glucagon (Glucagen) 1 mg IM ONCE PRN; Protocol PRN Reason: Adult Acute Hypoglycemia Prot. Nitroglycerin/Dextrose (Nitroglycerin Drip) 50 mg in 250 mls @ 0 mls/hr IV .Q0M TELLY; Protocol Last Titration: 02/15/20 18:00 Dose: Infused Documented by: Dextrose (D5w) 500 mls @ 100 mls/hr IV ONCE PRN; Protocol PRN Reason: Adult Acute Hypoglycemia Prot Insulin Aspart (Novolog) 0 unit SUBCUT BEDTIME [facility]; Protocol Last Admin: 02/15/20 22:41 Dose: Not Given Documented by: Insulin Aspart (Novolog) 0 unit SUBCUT TIDWM [facility]; Protocol Last Admin: 02/16/20 08:48 Dose: 8 unit Documented by: Magnesium Hydroxide (Milk Of Magnesia) 30 ml PO DAILY PRN PRN Reason: CONSTIPATION Morphine Sulfate (Morphine) 4 mg IVP Q4H PRN PRN Reason: SEVERE PAIN Last Admin: 02/15/20 02:41 Dose: 4 mg Documented by: Naloxone HCl (Narcan) 0.1 mg IVP Q2M PRN PRN Reason: RESPIRATORY RATE < 8/MIN Nitroglycerin (Nitrostat) 0.4 mg SUBLINGUAL Q5M PRN PRN Reason: CHEST PAIN Sertraline HCl (Zoloft) 100 mg PO DAILY [facility] Last Admin: 02/16/20 08:48 Dose: 100 mg Documented by: Temazepam (Restoril) 15 mg PO BEDTIME PRN PRN Reason: INSOMNIA Vitals/I&O/Wt Last Vital Signs Temp 98.2 F 02/16/20 05:09 Pulse 65 02/16/20 05:09 Resp 20 H 02/16/20 05:09 BP 106/68 02/16/20 05:09 Pulse Ox 93 02/16/20 05:09 02/15/20 02/16/20 02/16/20 22:59 06:59 14:59 Intake Total 437.875 / 437.875 100 / 537.875 585 / 585 Output Total 400 / 400 Balance 437.875 / 437.875 -300 / 137.875 585 / 585 Weight last 48 hrs Weight 177 lb 4.8 oz Weight 176 lb Physical Exam Narrative: EXAM NARRATIVE: GENERAL: The patient is alert and oriented times three. Not in any acute distress. HEENT: No significant pallor, icterus or lymphadenopathy. The pupils are reactant to light. Oral cavity: There are no mucous membrane lesions. Funduscopic examination: Fundus is not visualized NECK: Trachea appears to be central. No masses noted. No JVD or thyromegaly appreciated. No carotid bruit. RESPIRATORY: Chest is symmetrical. No intercostals muscle retraction or any accessory muscle activation. There is no chest wall tenderness. Breath sounds are heard bilaterally. Occasional coarse crackles at the bases no evidence of any consolidation. BREASTS: Deferred. HEART: The PMI is in the 5th left intercostals space just in the midclavicular line. No palpable precordial events. S1 and S2 are normal. No S3 or S4 heard. No pericardial rub or any click heard. Short systolic murmur at the base of the heart. No diastolic murmurs. ABDOMEN: No vessel pulsations or distention. No tenderness. No organomegaly appreciated. No abdominal bruit. Bowel sounds are normally heard. : Deferred. RECTAL: Deferred. LYMPHATIC: No lymphadenopathy noted in the neck or groin. EXTREMITIES: No edema or cyanosis. Right groin has no hematoma or bleeding. Good distal pulses. MUSCULOSKELETAL: No acute joint deformities or swelling SKIN: There are no significant scars or skin rash noted. NEUROPSYCHIATRIC: The patient is alert and oriented x3. Appears to be in a good mood. The higher functions are grossly within normal limits. No tremors or rigidity noted. 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 He underwent PCI of the lesion. Currently he is doing okay. Status: Acute (2) Atherosclerotic heart disease of [place] coronary artery with unstable angina pectoris: In view of his recurrent history of restenosis and also history of diabetes, I may start him on Effient, instead of Plavix. May continue on all current medications as it is. Discussed with the Dr. Martínez Status: Acute Qualifiers: [place] vs. transplanted heart: [place] heart Qualified Code(s): I25.110 - Atherosclerotic heart disease of [place] coronary artery with unstable angina pectoris (3) Benign essential HTN: The blood pressure is fairly under control. May continue on the current medications. Status: Chronic (4) Dyslipidemia: We will continue on the current medications. 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 The creatinine is slightly lower since the admission. Status: Acute Qualifiers: Chronic kidney disease stage: stage 3 (moderate) Qualified Code(s): N18.3 - Chronic kidney disease, stage 3 (moderate) Additional A&P Information If the patient continues remain stable, may be discharged home today. He may go home with the Effient, in place of Plavix . Also may take Jardiance 10 mg p.o. daily. He need to be seen at the heart care services next Wednesday to be seen by the nurse practitioner. I may see him in the office in 3 weeks. Attestations Medical Necessity Statement*: Possible discharge home today. Coding Level of Care Code Acute Neurology Physician for g Fwd Exam Expanded Problem Focused Diagnoses NSTEMI (non-ST elevated myocardial infarction) I21.4 Atherosclerotic heart disease of [place] coronary artery with unstable angina pectoris I25.110 [place] vs. transplanted heart: [place] heart Benign essential HTN I10 Dyslipidemia E78.5 Type 2 diabetes mellitus with hyperglycemia E11.65; Z79.4 Diabetes mellitus shelter insulin use: with shelter use Chronic kidney disease (CKD) N18.3 Chronic kidney disease stage: stage 3 (moderate)
[2020-02-16] MEDS: prasugrel 10 MG Tablet PO (10:15)
--- NOTE | 2020-02-16 11:39 | PC.NURSE ---
PATIENT UP IN CHAIR EATING LUNCH ; PATIENT RIGHT GROIN DRESSING C/D/I ; PATIENT HAS NO COMPLAINTS AT THIS TIME
[2020-02-16 12:09] LABS: Glucose Point of Care 271 mg/dL (70-110)
[2020-02-16 16:57] LABS: Glucose Point of Care 281 mg/dL (70-110)
--- NOTE | 2020-02-16 16:57 | P.DS_ITS ---
Discharge Providers Date of Admission: 02/14/20 19:49 Date of Discharge: February 16, 2020 Attending Provider at Admission: Allan Blum MD Attending Provider at Discharge: Na Martínez MD Primary Care Provider: ALEJANDRINA Meza Diagnoses at Discharge Discharge Diagnosis (1) NSTEMI (non-ST elevated myocardial infarction): Status: Acute (2) Atherosclerotic heart disease of [place] coronary artery with unstable angina pectoris: Status: Acute Qualifiers: [place] vs. transplanted heart: [place] heart Qualified Code(s): I25.110 - Atherosclerotic heart disease of [place] coronary artery with unstable angina pectoris (3) Benign essential HTN: Status: Chronic (4) Dyslipidemia: Status: Chronic (5) Type 2 diabetes mellitus with hyperglycemia: Status: Chronic Qualifiers: Diabetes mellitus superintendent terminal insulin use: with intermediate use Qualified Code(s): E11.65 - Type 2 diabetes mellitus with hyperglycemia; Z79.4 - manager terminal (current) use of insulin (6) Chronic kidney disease (CKD): Status: Acute Qualifiers: Chronic kidney disease stage: stage 3 (moderate) Qualified Code(s): N18.3 - Chronic kidney disease, stage 3 (moderate) Reason for Visit Reason for Visit: CHEST PAIN X 2 DAYS Hospital Course Hospital Course: Mr. Telles presented with a couple of days of chest pain. He was ultimately found to have a non-ST elevation HI. After stabilization with anticoagulation and nitroglycerin, he underwent cardiac catheterization the following day. He was found to have a high-grade in-stent restenosis and a stent that had been placed in a previous vein graft to diagonal and obtuse marginal. This was restented with good results. Patient is being changed to Effient from Plavix. Statin therapy is being added and Jardiance is being added to his diabetic regimen. He was monitored post procedure without any acute events or recurrent symptoms. He looks pretty good on the day of discharge. Much younger than his years. He was able to ambulate and his groin was intact. Creatinine was 1.6 on the day of discharge. Renal function will need to be watched with contrast load. He did receive some fluids post procedure and ARB was held on the day after procedure. It is being resumed at discharge. Discharge Data Data Completed and Pending: Completed Studies During Hospitalization Category Date Time Status CT angio chest ab domen pelvis Urgen t Cat Scan 02/14/20 20:26 Completed SENIOR RADIATION THERAPIST request for service Routin e Exams 02/15/20 15:46 Completed XR chest 1V zabrina ble [id number] Stat Exams 02/14/20 18:19 Completed CV echo complete* [id number] Routine Ultrasound 02/15/20 11:49 Completed Labs from last 24 hours 02/16/20 02/16/20 02/16/20 11:35 06:12 04:21 WBC RBC Hgb Hct MCV MCH MCHC RDW Plt Count MPV Neut % (Auto) Lymph % (Auto) [place] % (Auto) Eos % (Auto) Baso % (Auto) Neut # (Auto) Lymph # (Auto) [place] # (Auto) Eos # (Auto) Baso # (Auto) Nucleated RBC % (a uto) Nucleated RBCs # Sodium 137 Potassium 4.6 Chloride 102 Carbon Dioxide 21 L Anion Gap 18.6 BUN 29 H Creatinine 1.6 H Glucose 299 H POC Glucose 271 264 Calculated Osmolal ity 292 Calcium 9.3 Magnesium 1.9 02/16/20 02/15/20 04:21 18:14 WBC 8.0 RBC 4.43 Hgb 13.1 Hct 41.6 L MCV 93.9 MCH 29.6 MCHC 31.5 RDW 13.2 Plt Count 146 MPV 12.0 H Neut % (Auto) 60.1 Lymph % (Auto) 28.6 [place] % (Auto) 9.8 Eos % (Auto) 0.8 Baso % (Auto) 0.4 Neut # (Auto) 4.8 Lymph # (Auto) 2.3 [place] # (Auto) 0.8 Eos # (Auto) 0.1 Baso # (Auto) 0.0 Nucleated RBC % (a uto) 0 Nucleated RBCs # 0.0 Sodium Potassium Chloride Carbon Dioxide Anion Gap BUN Creatinine Glucose POC Glucose 153 Calculated Osmolal ity Calcium Magnesium Laboratory Tests 02/14/20 02/14/20 02/14/20 18:30 18:30 18:30 INR 1.02 Total Bilirubin 0.5 AST 22 ALT 16 Alkaline Phosphata se 70 Troponin I 6 Hour Troponin I Hi Sens Del Troponin T Baselin e 45 H Troponin T 120 Min [place] Troponin T NT-Pro-B Natriuret Pep 173 Albumin 4.8 Lipase 40 02/14/20 02/15/20 20:25 00:23 INR Total Bilirubin AST ALT Alkaline Phosphata se Troponin I 6 Hour 82.02 H Troponin I Hi Sens Del 37.02 H* Troponin T Baselin e Troponin T 120 Min [place] 62.71 H Delta Troponin T 17.71 H* NT-Pro-B Natriuret Pep Albumin Lipase Imaging^: Echo: Radiologist's impression: CONCLUSIONS Normal LV size with diminished ejection fraction of 49%. Hypokinetic basal and mid inferolateral and dyskinetic basal inferior wall segment. Moderately increased left atrial size. Thickened mitral valve. Moderate mitral valve regurgitation. Thickened aortic valve. Mild tricuspid valve regurgitation. Estimated pulmonary artery peak systolic pressure 20 mmHg There is no pericardial effusion. There are no intracardiac masses. Compared to the previous study from 08/11/2019, the LV ejection fraction appears to have slightly decreased Other CT: Radiologist's impression: PROCEDURE INFORMATION: Exam: CT Angiography Chest With Contrast Exam date and time: 02/14/2020 10:20 PM Age: 80 years old Clinical indication: Chest pain; Abdominal pain; Generalized; Prior surgery; Surgery type: Cabg, appy, hernia, stents; Additional info: Chest pain radiating towards shoulder blades and has acs TECHNIQUE: Imaging protocol: Computed tomographic angiography of the chest with intravenous contrast. 3D rendering: MIP and/or 3D reconstructed images were created by the technologist. Radiation optimization: All CT scans at this facility use at least one of these dose optimization techniques: automated exposure control; mA and/or kV adjustment per patient size (includes targeted exams where dose is matched to clinical indication); or iterative reconstruction. Contrast material: VISI 320; Contrast volume: 95 ml; Contrast route: IV; COMPARISON: No relevant prior studies available. RADIATION DOSE METRICS: Total DLP: 1820.2 mGy-cm FINDINGS: Pulmonary arteries: Normal. No pulmonary emboli. Aorta: Unremarkable. No aortic aneurysm. No aortic dissection. Lungs: Unremarkable. No consolidation. No masses. Pleural space: Unremarkable. No pneumothorax. No pleural effusion. Heart: Unremarkable. No cardiomegaly. No pericardial effusion. Lymph nodes: Unremarkable. No enlarged lymph nodes. Bones/joints: Sternotomy wires. Soft tissues: Unremarkable. IMPRESSION: Negative for pulmonary embolus or airspace infiltrate. PROCEDURE INFORMATION: Exam: CT Angiography Abdomen and Pelvis With Contrast Exam date and time: 02/14/2020 10:20 PM Age: 80 years old Clinical indication: Chest pain; Abdominal pain; Generalized; Prior surgery; Surgery type: Cabg, appy, hernia, stents; Additional info: Chest pain radiating towards shoulder blades and has acs TECHNIQUE: Imaging protocol: Computed tomographic angiography of the abdomen and pelvis with intravenous contrast material. 3D rendering: MIP and/or 3D reconstructed images were created by the technologist. Radiation optimization: All CT scans at this facility use at least one of these dose optimization techniques: automated exposure control; mA and/or kV adjustment per patient size (includes targeted exams where dose is matched to clinical indication); or iterative reconstruction. Contrast material: VISI 320; Contrast volume: 95 ml; Contrast route: IV; COMPARISON: No relevant prior studies available. RADIATION DOSE METRICS: Total DLP: 1820.2 mGy-cm FINDINGS: Aorta: No aortic aneurysm. No aortic dissection. Celiac trunk and mesenteric arteries: No occlusion or significant stenosis. Renal arteries: No occlusion or significant stenosis. Right iliac arteries: No occlusion or significant stenosis. Left iliac arteries: No occlusion or significant stenosis. Liver: No mass. Gallbladder and bile ducts: Cholelithiasis. Pancreas: Unremarkable. No mass. No ductal dilation. Spleen: Unremarkable. No splenomegaly. Adrenals: Unremarkable. No mass. Kidneys and ureters: Unremarkable. No solid mass. No hydronephrosis. Stomach and bowel: Diverticulosis without diverticulitis. Appendix: No evidence of appendicitis. Intraperitoneal space: Unremarkable. No free air. No significant fluid collection. Lymph nodes: Unremarkable. No enlarged lymph nodes. Bladder: Unremarkable. No mass. Reproductive: Unremarkable as visualized. Bones/joints: No acute fracture. No dislocation. Soft tissues: Unremarkable. CT/CT angio chest abdomen pelvis IMPRESSION: 1. Negative for acute inflammatory process. 2. Cholelithiasis. 3. Diverticulosis without diverticulitis. Radiation Dose CTDIVOL = (mGy): DLP = 1820.2~1820.2 (mGy-cm) Procedures Performed: CATH Diagnostic Findings No significant disease noted in the Left Main, LAD, Circumflex, or RCA coronary arteries. Coronary angiography shows right dominance. The main the left main is a medium caliber vessel which appears to have a 98% tapering narrowing distally to the bifurcation. The left artery descending artery is a medium caliber vessel which was found to have high-grade lesion at the ostium. The proximal LAD was found to have high-grade around 95 to 90% diffuse stenosis to its the large sub-first septal washer assembler. Then the artery appears to be totally occluded. The left circumflex artery was found to have high-grade stenosis at the ostium. The first obtuse marginal artery appears to be totally occluded. Circumflex proper appears to run in the AV groove is an elongated slender vessel with a mild to moderate diffuse disease. The right coronary artery is a medium caliber vessel which was found to have moderate diffuse disease proximally. After the first RV branch, the artery. Be totally occluded. Grade 2-3 [id number] collaterals were noted filling of the PLV and the PDA branches. Some bridging collaterals also were noted. The [place] to the LAD was widely patent.The distal anastomotic site was in the distal LAD. Grade 2 collaterals are noted filling up the PDA branch of the right coronary artery. The sequential saphenous venous graft to the diagonal/obtuse marginal artery was found to be patent with a high-grade in-stent stenosis in the proximal segment of the graft. The obtuse marginal artery distal to the anastomosis was found to have moderate diffuse disease. The diagonal artery, distal anastomosis was found to have mild diffuse disease. Conclusions No significant disease noted in the Left Main, LAD, Circumflex, or RCA coronary arteries. Patient has prior CABG. This is an 80-year-old white female with a history of coronary disease, status post coronary artery bypass surgery, status post multiple PCI's, presented with features of unstable angina and non-ST elevation myocardial infarction. Patient continued to have chest pain and persistent EKG changes during the hospital stay. His echocardiogram revealed multiple wall motion normalities with an ejection fraction of 48%. In view of his ongoing symptoms and the other abnormality findings, in order to further evaluate his coronary status as well as the graft status, a repeat cardiac catheterization and possible PCI were recommended. Patient understood this well and consented to proceed. He underwent left heart catheterization with a left and right coronary angiogram, graft angiogram . The findings are as follows. Severe three-vessel coronary artery disease involving the proximal segments of all the 3 coronary arteries. Patent [place] to the LAD. High-grade, around 95% in-stent stenosis of the sequential venous graft to the diagonal/obtuse marginal artery. Markedly elevated LVEDP of 36 mmHg. In view of the patient's ongoing symptoms and the above abnormal objective findings, for further management of his condition, PCI of the sequential graft to the diagonal/obtuse marginal artery was thought to be appropriate. I reviewed and discussed the cardiac cath findings with Dr. Pavon. agreed with this and took over further management of this patient at this point. Vitals: Last Vital Signs Temp 98.2 F 02/16/20 05:09 Pulse 61 02/16/20 14:14 Resp 16 02/16/20 13:00 BP 130/66 02/16/20 13:00 Pulse Ox 95 02/16/20 14:14 Discharge Plan Discharge Patient Disposition: Home, Self-Care Condition: Stable Prescriptions: New atorvastatin 40 mg Tablet 80 mg PO DAILY Qty: 30 RF: 0 prasugrel 10 mg Tablet 10 mg PO DAILY Qty: 30 RF: 0 Jardiance 10 mg tablet 10 mg PO DAILY Qty: 30 RF: 0 Continued nitroglycerin [Nitrostat] 0.4 mg tablet, sublingual 0.4 mg SUBLINGUAL Q5M PRN (Reason: chest pain) 30 Days Qty: 30 RF: 3 (DME) Accu-Chek Michelle Plus test strp Strip See Rx Instructions .ROUTE .MEDSUPPLY Qty: 10 RF: 0 albuterol sulfate 2.5 mg /3 mL (0.083 %) solution for nebulization 2.5 mg INHALATION Q4H PRN (Reason: Shortness Of Breath) RF: 0 cyanocobalamin (vitamin B-12) [Vitamin B-12] 1,000 mcg tablet 1,000 mcg PO QDAY RF: 0 cholecalciferol (vitamin D3) 1,000 unit capsule 2,000 unit PO QDAY RF: 0 amlodipine 5 mg tablet 5 mg PO QDAY Qty: 90 RF: 0 fenofibrate nanocrystallized 48 mg tablet 48 mg PO QDAY Qty: 90 RF: 0 sertraline [Zoloft] 100 mg tablet 100 mg PO QDAY RF: 0 Novolin 70/30 U-100 Insulin 100 unit/mL (70-30) suspension See Rx Instructions SUBCUT BID Qty: 60 RF: 1 irbesartan 150 mg tablet 150 mg PO QDAY Qty: 90 RF: 0 CoQ-10 100 mg Capsule 100 mg PO DAILY RF: 0 Discontinued clopidogrel 75 mg tablet 75 mg PO QDAY Qty: 90 RF: 0 Discharge Orders: Discharge Order (Routine); Ordered 02/16/20 Ordered By: Na Martínez Referrals: Rosario Girard MD [Physician] - None (Follow up in 3 weeks) Martínez Diehl FNP-C [Primary Care Provider] - 2 weeks Meme Suggs FNP [Nurse Practitioner] - 4-7 days (follow up after stent placement) Discharge Diet: Cardiac and Diabetic Patient Instructions: Prasugrel (By mouth), Myocardial Infarction (DC), Left Heart Catheterization (DC), Coronary Angioplasty (DC) Activity Restrictions/Additional Instructions: You had what we call a non-ST elevation HI. This is a fancy medical term for a heart attack. Peak troponin level was 82.02. You underwent cardiac catheterization by Dr. Girard. This revealed a high-grade lesion in the vein graft to the diagonal and obtuse marginal artery. You had a stent that had been placed here previously and it had blocked off again. Dr. Pavon placed a stent to reopen this area. You were much improved after this. We watched you overnight per our usual protocol. You were felt stable for discharge today. Given the in-stent restenosis, we are stopping Plavix and putting you on a medication called Prasugrel or Effient. This is an antiplatelet medication that is a little bit different than Plavix. A prescription has been provided. You did receive 1 dose of the medication in the hospital and tolerated it well. Statin therapy is also being added for the same reason. This can help keep plaques from building up. As a further means of keeping you from having recurrent events, we are adding Jardiance to your diabetic regimen. In addition to the helping manage diabetes, you can help your heart. He will follow-up in the cardiology clinic with the nurse practitioner next week and see Dr. Girard in 3 weeks. I have also written for an appointment with Martínez. Follow the instructions provided to you post cardiac catheterization regarding activity and signs and symptoms to watch for. Discharge Attestations Time Spent in Discharge Care*: greater than 30 min Specific Discharge Activities: Specific discharge activities: educating patient, educating and/or supporting family/caregiver, discussing with pcp/other providers, documenting/other paperwork and evaluating patient/reviewing data Quality Metrics Clinical Quality Measures During this hospital stay, did patient experience: AMI Clinical Trial Participant: No Contraindication to aspirin (AMI): Drug allergy Contraindication to statin: Statin prescribed Coding Level of Care Code Acute [employer] [place] [employer] Fwd Diagnoses NSTEMI (non-ST elevated myocardial infarction) I21.4 Atherosclerotic heart disease of [place] coronary artery with unstable angina pectoris I25.110 [place] vs. transplanted heart: [place] heart Benign essential HTN I10 Dyslipidemia E78.5 Type 2 diabetes mellitus with hyperglycemia E11.65; Z79.4 Diabetes mellitus intermediate insulin use: with superintendent terminal use Chronic kidney disease (CKD) N18.3 Chronic kidney disease stage: stage 3 (moderate)
--- NOTE | 2020-02-16 18:23 | PC.NURSE ---
PATIENT GIVEN DISCHARGE INSTRUCTIONS AND VERBALIZED UNDERSTANDING ; IV REMOVED AND PRESSURE DRESSING APPLIED WITH NO BLEEDING NOTED ; RIGHT GROIN DRESSING C/D/I ; VSS ; PATIENT DENIES ANY PAIN OR SOB AT THIS TIME ; PATIENT TO EXIT VIA WHEELCHAIR
== END 2020-02-16 18:23 | disposition home or self-care (01) | DRG 246 ==
LOC: ER 18:33 → CSU 20:23
PROVIDERS: Internal Medicine Cardiovascular Disease; Admitting Provider Internal Medicine; Emergency Provider Family Medicine; PCP Nurse Practitioner; Visit Provider Hospitalist
PROC: 027034Z Dilation of Coronary Artery, One Artery with Drug-eluting Intraluminal Device, Percutaneous Approach (ICD-10-PCS; principal; 2020-02-15 16:30)
DX: T82.857A Stenosis of other cardiac prosthetic devices, implants and grafts, initial encounter (principal); I21.A9 Other myocardial infarction type; I13.0 Hypertensive heart and chronic kidney disease with heart failure and stage 1 through stage 4 chronic kidney disease, or unspecified chronic kidney disease; I25.700 Atherosclerosis of coronary artery bypass graft(s), unspecified, with unstable angina pectoris; E11.22 Type 2 diabetes mellitus with diabetic chronic kidney disease; Z79.4 Long term (current) use of insulin; Z79.02 Long term (current) use of antithrombotics/antiplatelets; N18.3 Chronic kidney disease, stage 3 (moderate); E78.5 Hyperlipidemia, unspecified; Z95.1 Presence of aortocoronary bypass graft; Y69 Unspecified misadventure during surgical and medical care; Y92.009 Unspecified place in unspecified non-institutional (private) residence as the place of occurrence of the external cause; E11.51 Type 2 diabetes mellitus with diabetic peripheral angiopathy without gangrene
CPT/HCPCS: 12345; 36415; 36416; 71045; 71275; 74174; 80048; 80053; 82962; 83690; 83735; 83880; 84484; 85025; 85610; 92937; 93005; 93306; 93459; 96372; 96375; 99282; C1769; C1874; C1887; C1894; J1644; J1650; J1815; J2001; J2250; J2270; J3010; J3490; J7030; Q0163; Q9967

== ENCOUNTER → 2020-02-26 12:05 | Outpatient (BNVA) | payer MEDICARE, SELFPAY | PROVIDERS: PCP Nurse Practitioner; Visit Provider Nurse Practitioner Family | DX: I25.110 Atherosclerotic heart disease of native coronary artery with unstable angina pectoris (principal); E78.5 Hyperlipidemia, unspecified | CPT/HCPCS: 80048 ==

== ENCOUNTER → 2020-03-04 10:19 | Outpatient (BNVA) | payer MEDICARE, SELFPAY | PROVIDERS: PCP Nurse Practitioner; Visit Provider Nurse Practitioner | DX: E11.65 Type 2 diabetes mellitus with hyperglycemia (principal); I10 Essential (primary) hypertension; E78.5 Hyperlipidemia, unspecified; I25.110 Atherosclerotic heart disease of native coronary artery with unstable angina pectoris; Z79.4 Long term (current) use of insulin | CPT/HCPCS: 80053; 81000; 83036 ==

== ENCOUNTER → 2020-05-16 08:19 | Outpatient (BNVA) | payer MEDICARE, SELFPAY | PROVIDERS: PCP Nurse Practitioner; Visit Provider Internal Medicine Cardiovascular Disease | DX: E78.5 Hyperlipidemia, unspecified (principal) | CPT/HCPCS: 80061 ==

== ENCOUNTER → 2020-06-18 08:57 | Outpatient (BNVA) | payer MEDICARE, SELFPAY | PROVIDERS: PCP Nurse Practitioner; Visit Provider Nurse Practitioner | DX: E11.65 Type 2 diabetes mellitus with hyperglycemia (principal); E78.5 Hyperlipidemia, unspecified; I10 Essential (primary) hypertension; Z79.4 Long term (current) use of insulin; E55.9 Vitamin D deficiency, unspecified | CPT/HCPCS: 80053; 80061; 82306; 83036 ==

== ENCOUNTER → 2020-06-19 11:36 | Outpatient (BNVA) | payer MEDICARE, SELFPAY | PROVIDERS: PCP Nurse Practitioner; Visit Provider Nurse Practitioner | DX: E11.65 Type 2 diabetes mellitus with hyperglycemia (principal); Z79.4 Long term (current) use of insulin | CPT/HCPCS: 81000 ==

== ENCOUNTER 2020-07-19 06:37 | Emergency (ER) | payer MEDICARE, SELFPAY ==
[2020-07-19] VITALS (8 sets, daily range): BP systolic 153–179; BP diastolic 66–78; PULSE 54–85; RESP 16–18; TEMP 36.6–37.2; O2SAT 95–98; BMI 23.6
--- NOTE | 2020-07-19 06:55 | US_ITS ---
WS: [id number] ULTRASOUND ABDOMEN LIMITED CLINICAL INFORMATION: RUQ abd pain COMPARISON: None. FINDINGS: Liver Size: Normal. Craniocaudal length: 13.1 cm. Echogenicity: Normal. Surface nodularity: None. Mass (size and location): None. Bile ducts Intrahepatic ducts: Normal. Common bile duct diameter: 0.4 cm. Gallbladder Extensive cholelithiasis with sludge. A few larger shadowing calculi measuring up to 1.5 cm. Microlit hiasis or sludge fills the remainder of the gallbladder. Mild gallbladder wall thickening. No pericho lecystic fluid or edema. Gallstones: Present Gallbladder sludge: Present Gallbladder wall thickenin.1 mm Pericholecystic fluid: None. Sonographic Watkins sign: Absent. Pancreas Normal as visualized. Right kidney: Normal. Hydronephrosis: None. Size: 10.3 cm x 4.9 cm x 5.3 cm. Abdominal aorta and IVC Visualized portions are normal. Ascites: None. US/US gall bladder [id number] IMPRESSION: 1. Distended gallbladder with echogenic debris due to microlithiasis and/or sl udge. Larger shadowing calculi measuring up to 1.5 cm. 2. Mild gallbladder wall thickening measuring 4.1 mm. 3. No pericholecystic fluid or gallbladder wall edema. Gallbladder function ca n be further evaluated with HIDA scan. 4. Normal common bile duct measuring 4.0 mm. 5. No hydronephrosis in right kidney.
--- NOTE | 2020-07-19 06:59 | W.ED.ABDPA2 ---
HPI - Abdominal Pain General: Chief Complaint: Abdominal Pain Stated Complaint: Throwing up/ABD pain Time Seen by Provider: 07/19/20 06:47 History of Present Illness: HPI narrative: 80-year-old male presents the emergency room with complaint of abdominal pain. States began about 4:00's morning woke him out. He has a history of known cholelithiasis. He has had vomiting multiple times overnight denies any hematemesis or coffee-ground emesis mostly initially food contents and then bilious. He denies any diarrhea. No chest pain or shortness of breath localizes the pain to the right upper quadrant does not radiate anywhere. MD elicited complaint: abdominal pain Pertinent past history: other (Cholelithiasis) Onset (ago): hour(s) Pain Consistency: constant Location: RUQ Quality: cramping Radiation: none Migration to: no migration Exacerbating factors: eating Relieving factors: nothing Associated Symptoms: Reports bloating, GI cramping, dyspepsia, nausea, poor appetite and vomiting; Denies anorexia, change in bowel habits, change in stool character, chills, coffee ground emesis, constipation, diarrhea, dysuria, excessive flatus, fever(s), heartburn, hematochezia, hematuria, hematemesis, fecal incontinence, loose stools, melena and syncope Review of Systems Const: Denies: fever(s) or chills ENMT: Denies: throat pain, ear or mastoid pain, nasal discharge or nasal congestion Card: Denies: syncope Resp: Denies: dyspnea, productive cough or non-productive cough GI: Reports: nausea, vomiting, bloating and GI cramping; Denies: hematemesis, coffee ground emesis, heartburn, diarrhea, constipation, excessive flatus, fecal incontinence, change in bowel habits, change in stool character, hematochezia or melena : Denies: hematuria Skin/Breast: Denies: rash or pruritus PFSH ED PFSH: Medical History Aortic heart murmur Atherosclerotic heart disease of [place] coronary artery with unstable angina pectoris Most recent intervention February 2020 medicated stent secondary to in-stent vein graft to diagonal and obtuse marginal stenosis Atherosclerotic heart disease of [place] coronary artery without angina pectoris B12 deficiency Benign essential HTN Carotid artery stenosis Less than 50% stenosis bilateral ICA moderate lateral mentis plaque Chronic gastroesophageal reflux disease Chronic kidney disease (CKD) Diabetes mellitus with neuropathy Dyslipidemia Mitral regurgitation PAD (peripheral artery disease) PTSD (post-traumatic stress disorder) [place] (peptic ulcer disease) Type 2 diabetes mellitus with hyperglycemia Vitamin D insufficiency Surgical History H/O cardiac catheterization At [facility] in 2014 no revascularizable lesion was managed medically History of appendectomy History of coronary artery stent placement 2012 Found to have three-vessel coronary disease high-grade lesion in venous graft to the obtuse marginal, [place] to the LAD was found to be patent, underwent PCI of the venous graft, History of percutaneous coronary intervention [place]: June Saphenous venous graft to obtuse marginal 1 and 2 History of umbilical hernia repair 1984 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 Family History Other Diabetes Heart disease Hypertension Social History Smoking and tobacco status: never smoked Second hand smoke exposure: No Smoking risk assessment/counseling performed?: No Alcohol intake: never Desire information about alcohol rehabilitation?: No Counseling given: No Desire information about substance/drug rehabilitation?: No Counseling given: No Caregiver/support person: No Lives independently: Yes Household members: spouse Housing: House Marital status: Number of children: 4 Number of grandchildren: 20 service: No Pets and animals: Yes Pets & animals: cat(s) History of recent travel: No Current gender identity: Male Physical Exam Const: COMMON NORMALS: no acute distress GENERAL APPEARANCE: cooperative and comfortable ORIENTATION/CONSCIOUSNESS: Yes awake, Yes oriented to person, Yes oriented to place and Yes oriented to time HENMT: COMMON NORMALS: normocephalic, atraumatic, hearing grossly normal bilaterally, external ears normal, EAC's normal, TM's normal bilaterally, Normal nasal mucous membranes and turbinates present, moist oral mucous membranes and oropharynx normal HEAD & SCALP: normocephalic and atraumatic NOSE: Normal nasal mucous membranes and turbinates present EXTERNAL EAR: Yes external ears normal EXTERNAL AUDITORY CANAL: EAC's normal TYMPANIC MEMBRANE: TM's normal bilaterally Eye: COMMON NORMALS: Equal, round and reactive pupils present, EOMs intact bilaterally, conjunctivae normal and no scleral icterus CONJUNCTIVA: Yes conjunctivae normal PUPIL: Yes Equal, round and reactive pupils present Neck/C-Spine: COMMON NORMALS: full ROM, no lymphadenopathy, supple and no JVD Lymph: LYMPHATIC: no lymphadenopathy noted and no lymphedema noted Resp: COMMON NORMALS: normal respiratory effort, No retractions, No use of accessory muscles and clear to auscultation bilaterally AUSCULTATION: clear to auscultation bilaterally Cardio: COMMON NORMALS: no JVD, regular rate, regular rhythm and No murmurs present (Cardio) RATE: regular rate RHYTHM: regular rhythm GI: PALPATION: Yes Tenderness to palpation present (GI) Details: RUQ and No Guarding due to palpation present (GI) Extremity: COMMON NORMALS: normal to inspection, capillary refill normal, no clubbing, cyanosis or edema, no calf tenderness and no pedal edema Neuro: SENSORIUM/ORIENTATION: Yes oriented to person, Yes oriented to place and Yes oriented to time Skin: COMMON NORMALS: no rashes or lesions noted GENERAL SKIN EXAM: no rashes or lesions noted Course Vital Signs: Vital signs: Vital Signs Temperature 98.9 F 07/19/20 14:23 Pulse Rate 60 07/19/20 14:23 Respiratory Rate 18 07/19/20 14:23 Blood Pressure 162/66 07/19/20 14:23 Pulse Oximetry 95 07/19/20 14:23 MDM - Abdominal Pain MDM Narrative: Medical decision making narrative: Patient has acute cholecystitis discussed with hospitalist and with Dr. Dooley they will see the patient. Patient was seen in the ER by them he was feeling somewhat better they gave him a p.o. challenge and ultimately decided to discharge him home see their note for discharge disposition and instructions Lab Data: Labs: Lab Results 07/19/20 07/19/20 07/19/20 Range/Units 07:04 07:10 07:10 WBC 10.5 H (4.0-10.0) 10^3/ uL RBC 4.97 (4.1-5.3) 10^6/u L Hgb 15.0 (11.7-16.6) g/dL Hct 46.9 (42.0-52.0) % MCV 94.4 H (80-94) fL MCH 30.2 (28.0-34.0) pg MCHC 32.0 (30.0-36.0) g/dL RDW 13.0 (12.1-15.1) % Plt Count 131 (130-400) 10^3/c mm MPV 11.4 H (7.4-10.4) fL Neut % (Auto) 78.7 % Lymph % (Auto) 16.5 % [place] % (Auto) 3.7 % Eos % (Auto) 0.4 % Baso % (Auto) 0.5 % Neut # (Auto) 8.29 H (1.8-7.7) 10^3/u L Lymph # (Auto) 1.7 (0.8-4.8) 10^3/u L [place] # (Auto) 0.4 (0.2-0.9) 10^3/u L Eos # (Auto) 0.0 (0.0-0.8) 10^3/u L Baso # (Auto) 0.1 (0.0-0.1) 10^3/u L Nucleated RBC % (a uto) 0 % Nucleated RBCs # 0.0 /100WBC Sodium 141 (136-145) mmol/L Potassium 4.3 (3.5-5.1) mmol/L Chloride 104 (98-107) mmol/L Carbon Dioxide 27 (22-29) mmol/L Anion Gap 14.3 (5-19) BUN 21 (8-23) mg/dL Creatinine 1.0 (0.7-1.2) mg/dL GFR Calculation Not Reportable Glucose 168 H (65-115) mg/dL Calculated Osmolal ity 299 H (285-295) mOsm/k g Calcium 9.8 (8.5-10.5) mg/dL Total Bilirubin 0.9 (0.15-1.2) mg/dL AST 23 (0-40) U/L ALT 19 (0-41) U/L Alkaline Phosphata se 98 (40-130) IU/L Total Protein 7.2 (6.6-8.7) g/dL Albumin 4.6 (3.5-5.2) g/dL Globulin 2.6 (1.3-4.6) g/dL Lipase 40 (13-60) U/L Urine Color Yellow (Yellow) Urine Appearance Clear (CLEAR) Urine pH 6.5 (5-7) Ur Specific Gravit y 1.015 (1.005-1.030) Urine Protein Neg (Negative) Urine Glucose (UA) 4+ H (Normal) Urine Ketones Negative (Negative) Urine Blood Neg (Negative) Urine Nitrate Negative (Negative) Urine Bilirubin Neg (Negative) Urine Urobilinogen Norm (Negative) mg/dL Ur Leukocyte Noris ase Negative (Negative) Discharge Plan Discharge Patient Disposition: Home Clinical Impression: Acute cholecystitis, Type 2 diabetes mellitus with hyperglycemia, Benign essential HTN Condition: Stable Prescriptions: New ciprofloxacin HCl [Cipro] 500 mg tablet 500 mg PO BID 7 Days Qty: 14 RF: 0 Continued nitroglycerin [Nitrostat] 0.4 mg tablet, sublingual 0.4 mg SUBLINGUAL Q5M PRN (Reason: chest pain) 30 Days Qty: 30 RF: 3 cyanocobalamin (vitamin B-12) [Vitamin B-12] 1,000 mcg tablet 1,000 mcg PO DAILY RF: 0 cholecalciferol (vitamin D3) 1,000 unit capsule 2,000 unit PO DAILY RF: 0 sertraline [Zoloft] 100 mg tablet 50 mg PO DAILY RF: 0 acetaminophen 500 mg capsule 500 mg PO BEDTIME PRN (Reason: Pain) RF: 0 atorvastatin 80 mg tablet 80 mg PO DAILY Qty: 90 RF: 1 Novolin 70/30 U-100 Insulin 100 unit/mL (70-30) suspension See Rx Instructions SUBCUT BID Qty: 60 RF: 2 prasugrel 10 mg tablet 10 mg PO DAILY Qty: 30 RF: 0 Jardiance 10 mg tablet 10 mg PO DAILY Qty: 90 RF: 1 amlodipine 5 mg tablet 5 mg PO DAILY RF: 0 irbesartan 300 mg tablet 300 mg PO DAILY RF: 0 coenzyme Q10 [CoQ-10] 100 mg Capsule 100 mg PO DAILY RF: 0 Discharge Orders: Discharge Order (Routine); Ordered 07/19/20 Ordered By: Best Dooley Referrals: Best Dooley MD [Physician] - (Return to surgery office in 10 days) Martínez Diehl, ROD FILLER-C [Primary Care Provider] - Discharge Diet: As Directed Discharge Activity: Increase activity as tolerated Coding Level of Care Code ED Sanitary Napkin Machine Tender for Chg Fwd Exam Comprehensive
[2020-07-19 07:15] LABS: Add Urine Microscopic? NO
[2020-07-19 07:18] LABS: Basophils # 0.1 10^3/uL (0.0-0.1); Basophils % 0.5 %; Eosinophils % 0.4 %; Hematocrit 46.9 % (42.0-52.0); Lymphocytes # 1.7 10^3/uL (0.8-4.8); Lymphocytes % 16.5 %; Mean Corpuscular Hemoglobin 30.2 pg (28.0-34.0); Mean Corpuscular Volume 94.4 fL (80-94); Mean Platelet Volume 11.4 fL (7.4-10.4); Monocytes # 0.4 10^3/uL (0.2-0.9); Monocytes % 3.7 %; Neutrophils # 8.29 10^3/uL (1.8-7.7); Neutrophils % 78.7 %; Nucleated Red Blood Cells % 0 %; Platelet Count 131 10^3/cmm (130-400); Red Blood Count 4.97 10^6/uL (4.1-5.3); White Blood Count 10.5 10^3/uL (4.0-10.0)
[2020-07-19 07:39] LABS: Bilirubin Urine Neg (Negative); Blood Urine Neg (Negative); Glucose Urine UA 4+ (Normal); Ketones Urine Negative (Negative); Leukocyte Esterase Urine Negative (Negative); Nitrate Urine Negative (Negative); Protein Urine Neg (Negative); Specific Gravity, Urine 1.015 (1.005-1.030); Urine Appearance Clear (CLEAR); Urine Color Yellow (Yellow); Urobilinogen Urine Norm (Negative); pH Urine 6.5 (5-7)
[2020-07-19 07:42] LABS: Alanine Aminotransferase 19 U/L (0-41); Albumin Level 4.6 g/dL (3.5-5.2); Alkaline Phosphatase 98 IU/L (40-130); Anion Gap 14.3 (5-19); Aspartate Amino Transferase 23 U/L (0-40); Blood Urea Nitrogen 21 mg/dL (8-23); Calcium 9.8 mg/dL (8.5-10.5); Carbon Dioxide 27 mmol/L (22-29); Chloride 104 mmol/L (98-107); Globulin 2.6 g/dL (1.3-4.6); Glucose 168 mg/dL (65-115); Lipase 40 U/L (13-60); Osmolality Calculated 299 mOsm/kg (285-295); Potassium 4.3 mmol/L (3.5-5.1); Sodium 141 mmol/L (136-145); Total Bilirubin 0.9 mg/dL (0.15-1.2); Total Protein 7.2 g/dL (6.6-8.7)
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
--- NOTE | 2020-07-19 12:15 | P.HP_ITS ---
Providers/Chief Complaint Primary Care Provider: ALEJANDRINA Meza Chief Complaint: Throwing up/ABD pain History of Present Illness Oscar Telles is a 80 year old male presented to the emergency department with worsening right upper quadrant abdominal pain that started around 3:00 in the morning confined to that area nothing seems to make it better or worse. Associated with nausea and vomiting further work-up was done in the emergency department and blood work was not of significance and an ultrasound was obtained of the liver and gallbladder that showed: 1. Distended gallbladder with echogenic debris due to microlithiasis and/or sludge. Larger shadowing calculi measuring up to 1.5 cm. 2. Mild gallbladder wall thickening measuring 4.1 mm. 3. No pericholecystic fluid or gallbladder wall edema. Gallbladder function can be further evaluated with HIDA scan. 4. Normal common bile duct measuring 4.0 mm. 5. No hydronephrosis in right kidney. Patient does report that he had calf intervention for his coronary arteries back in February 2020 and has been placed on blood thinner in the form of Brilinta ever since and he is currently receiving it, general surgery was consulted for further evaluation and potential incision. Patient also gives history of chronic kidney disease, non-STEMI, dyslipidemia, benign essential tension, GERD and type 2 diabetes mellitus. Patient was evaluated emergency department room #6 and at that time patient had already have his symptoms gone and he feels better and in fact he was hungry. Patient reports that he had 2 episode so far with his gallbladder but usually it subsides on its own and he does not recall particularly fatty dyspepsia. Review of Systems General: Reports: 10 or more systems reviewed and unremarkable except in HPI and below Medications/Allergies Home Medications Medication Instructions Recorded Confirmed Last Taken Type cholecalciferol (vitamin D3) 25 2,000 unit PO DAILY 09/22/19 07/19/20 07/18/20 History mcg (1,000 unit) capsule cyanocobalamin (vitamin B-12) 1,000 mcg PO DAILY 09/22/19 07/19/20 07/18/20 History 1,000 mcg tablet nitroglycerin 0.4 mg sublingual 0.4 mg SUBLINGUAL Q5M PRN 30 Days 10/26/19 07/19/20 02/14/20 Rx tablet #30 tab coenzyme Q10 [CoQ-10] 100 mg PO DAILY 02/14/20 07/19/20 07/18/20 History acetaminophen 500 mg capsule 500 mg PO BEDTIME PRN cap 02/26/20 07/19/20 Unknown History sertraline 100 mg tablet 50 mg PO DAILY tab 03/14/20 07/19/20 07/18/20 History atorvastatin 80 mg tablet 80 mg PO DAILY #90 tab 06/19/20 07/19/20 07/18/20 Rx insulin human U-100 NPH-regulr See Rx Instructions SUBCUT BID #60 06/19/20 07/19/20 07/18/20 Rx 70-30 mix 100 unit/mL subcutaneous ml susp prasugrel 10 mg tablet 10 mg PO DAILY #30 tab 06/19/20 07/19/20 07/18/20 Rx empagliflozin 10 mg tablet 10 mg PO DAILY #90 tab 06/21/20 07/19/20 07/18/20 Rx amlodipine 5 mg PO DAILY 07/19/20 07/19/20 07/18/20 History irbesartan 150 mg PO DAILY 07/19/20 07/19/20 07/18/20 History Allergies Allergy/AdvReac Type Severity Reaction Status Date / Time aspirin Allergy ADR-Swelling Verified 07/19/20 12:52 of the Eye NSAIDS (Non-Steroidal Allergy Unknown Verified 07/19/20 12:52 Anti-Inflamma Penicillins Allergy Unknown Verified 07/19/20 12:52 sulfamethoxazole Allergy Unknown Verified 07/19/20 12:52 [From Bactrim] trimethoprim [From Bactrim] Allergy Unknown Verified 07/19/20 12:52 metformin AdvReac ADR-Gastrointestinal Verified 07/19/20 12:52 Upset PFSH Acute PFSH: Medical History Aortic heart murmur Atherosclerotic heart disease of [place] coronary artery with unstable angina pectoris Most recent intervention February 2020 medicated stent secondary to in-stent vein graft to diagonal and obtuse marginal stenosis Atherosclerotic heart disease of [place] coronary artery without angina pectoris B12 deficiency Benign essential HTN Carotid artery stenosis Less than 50% stenosis bilateral ICA moderate lateral mentis plaque Chronic gastroesophageal reflux disease Chronic kidney disease (CKD) Diabetes mellitus with neuropathy Dyslipidemia Mitral regurgitation PAD (peripheral artery disease) PTSD (post-traumatic stress disorder) 2004 [place] storm in [facility] PUD (peptic ulcer disease) Type 2 diabetes mellitus with hyperglycemia Vitamin D insufficiency Surgical History H/O cardiac catheterization At [facility] in 2014 no revascularizable lesion was managed medically History of appendectomy History of coronary artery stent placement 2012 Found to have three-vessel coronary disease high-grade lesion in venous graft to the obtuse marginal, [place] to the LAD was found to be patent, underwent PCI of the venous graft, History of percutaneous coronary intervention [place]: June Saphenous venous graft to obtuse marginal 1 and 2 History of umbilical hernia repair 1983 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 Family History Other Diabetes Heart disease Hypertension Social History Smoking and tobacco status: never smoked Second hand smoke exposure: No Smoking risk assessment/counseling performed?: No Alcohol intake: never Desire information about alcohol rehabilitation?: No Counseling given: No Desire information about substance/drug rehabilitation?: No Counseling given: No Caregiver/support person: No Lives independently: Yes Household members: spouse Housing: House Marital status: Number of children: 4 Number of grandchildren: 20 service: No Pets and animals: Yes Pets & animals: cat(s) History of recent travel: No Current gender identity: Male Vitals/I&O/Wt Last Vital Signs Temp 97.8 F 07/19/20 06:42 Pulse 61 07/19/20 11:00 Resp 18 07/19/20 11:00 BP 174/78 07/19/20 11:00 Pulse Ox 96 07/19/20 11:00 Weight last 48 hrs Weight 165 lb Physical Exam Const: COMMON NORMALS: no acute distress and patient oriented x3 GENERAL APPEARANCE: cooperative ORIENTATION/CONSCIOUSNESS: Yes awake, Yes oriented to person, Yes oriented to place and Yes oriented to time HENMT: COMMON NORMALS: normocephalic HEAD & SCALP: normocephalic Eye: COMMON NORMALS: Equal, round and reactive pupils present and no scleral icterus PUPIL: Yes Equal, round and reactive pupils present Lymph: LYMPHATIC: no lymphadenopathy noted Chest: COMMONS NORMALS: normal inspection of the chest Resp: COMMON NORMALS: normal respiratory effort and clear to auscultation bilaterally AUSCULTATION: clear to auscultation bilaterally Cardio: COMMON NORMALS: S1 normal heart sound present and S2 normal heart sound present; negative for No murmurs present (Cardio) HEART SOUNDS: S1 normal heart sound present and S2 normal heart sound present GI: COMMON NORMALS: Soft to palpation; negative for No hepatosplenomegaly present INSPECTION: Yes normal to inspection PALPATION: Yes Soft to palpation, No Firmness to palpation present (GI), No Tenderness to palpation present (GI), No Guarding due to palpation present (GI), No Rigid due to palpation and No No hepatosplenomegaly present Neuro: COMMON NORMALS: patient oriented x3 SENSORIUM/ORIENTATION: Yes oriented to person, Yes oriented to place and Yes oriented to time Psych: COMMON NORMALS: mental status grossly normal Skin: COMMON NORMALS: no rashes or lesions noted GENERAL SKIN EXAM: no rashes or lesions noted Data : 07/19/20 07:10 07/19/20 07:10 A&P Assessment and plan (1) Biliary colic: After thorough history physical examination and reviewing the chart I do b elieve that the patient will benefit from elective laparoscopic cholecystectomy after medical optimization and cardiac clearance particularly the patient had recent cardiac cath which any attempt to hold the blood thinners may increase the chance of an PA. At some point, as of now as the patient has no symptoms and has been resolved I will put the patient on diet and see how he performs if he continues to do well we will plan to discharge him home on antibiotics and follow-up with me at the [facility] to plan for elective laparoscopic cholecystectomy. I did discuss and update his granddaughter whom she is a nurse and the plan of care has been agreed upon by the patient and his granddaughter and verbalized their understanding. Assurance and education All questions have been answered and all concerns have been addressed to patient's satisfaction. Status: Acute Attestations Medical Necessity Statement*: Observation for clinical evaluation Time Spent in Patient Care: (>than 50% of time spent in counselling and/or direct pt care on unit) . 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
--- NOTE | 2020-07-19 13:12 | PC.NURSE ---
Meal brought to pt , only able to eat 1/2 of the meal. States he got full. He has not vomited
--- NOTE | 2020-07-19 18:23 | P.SS_ITS ---
Short Stay Summary Providers Date of Admit/Discharge: 07/19/20 Attending Provider: Best Dooley MD Primary Care Provider: ALEJANDRINA Meza Chief Complaint: Throwing up/ABD pain HPI History of Present Illness Chief Complaint: Abdominal pain History of present illness:Oscar Telles is a 80 year old malePresented with the abdominal pain located in the right upper quadrant and was found to have cholelithiasis, apparently the patient had recent cardiac catheterization with stent placement and has been on Brilinta for anticoagulation, less than 6 months and by the time I have seen the patient in the ER he already had resolution of his abdominal pain and he felt to be hungry. Review of Systems General: Reports: 10 or more systems reviewed and unremarkable except in HPI and below Home Meds/Allergies Home Medications and Allergies Home Medications Medication Instructions Recorded Confirmed Type cholecalciferol (vitamin D3) 25 2,000 unit PO DAILY 09/22/19 07/19/20 History mcg (1,000 unit) capsule cyanocobalamin (vitamin B-12) 1,000 mcg PO DAILY 09/22/19 07/19/20 History 1,000 mcg tablet coenzyme Q10 [CoQ-10] 100 mg PO DAILY 02/14/20 07/19/20 History acetaminophen 500 mg capsule 500 mg PO BEDTIME PRN cap 02/26/20 07/19/20 History sertraline 100 mg tablet 50 mg PO DAILY tab 03/14/20 07/19/20 History amlodipine 5 mg PO DAILY 07/19/20 07/19/20 History irbesartan 150 mg PO DAILY 07/19/20 07/19/20 History Allergies Allergy/AdvReac Type Severity Reaction Status Date / Time aspirin Allergy ADR-Swelling Verified 07/19/20 18:25 of the Eye NSAIDS (Non-Steroidal Allergy Unknown Verified 07/19/20 18:25 Anti-Inflamma Penicillins Allergy Unknown Verified 07/19/20 18:25 sulfamethoxazole Allergy Unknown Verified 07/19/20 18:25 [From Bactrim] trimethoprim [From Bactrim] Allergy Unknown Verified 07/19/20 18:25 metformin AdvReac ADR-Gastrointestinal Verified 07/19/20 18:25 Upset PFSH Acute PFSH: Medical History Aortic heart murmur Atherosclerotic heart disease of [place] coronary artery with unstable angina pectoris Most recent intervention February 2020 medicated stent secondary to in-stent vein graft to diagonal and obtuse marginal stenosis Atherosclerotic heart disease of [place] coronary artery without angina pectoris B12 deficiency Benign essential HTN Carotid artery stenosis Less than 50% stenosis bilateral ICA moderate lateral mentis plaque Chronic gastroesophageal reflux disease Chronic kidney disease (CKD) Diabetes mellitus with neuropathy Dyslipidemia Mitral regurgitation PAD (peripheral artery disease) PTSD (post-traumatic stress disorder) 2004 after storm in [facility] PUD (peptic ulcer disease) Type 2 diabetes mellitus with hyperglycemia Vitamin D insufficiency Surgical History H[place]O cardiac catheter[place] [facility] [place] no revascularizable lesion was managed medically History of appendectomy History of coronary artery stent placement 2012 Found to have three-vessel coronary disease high-grade lesion in venous graft to the obtuse marginal, [place] to the LAD was found to be patent, underwent PCI of the venous graft, History of percutaneous coronary intervention [place]: June Saphenous venous graft to obtuse marginal 1 and 2 History of umbilical hernia repair 1983 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 Family History Other Diabetes Heart disease Hypertension Social History Smoking and tobacco status: never smoked Second hand smoke exposure: No Smoking risk assessment/counseling performed?: No Alcohol intake: never Desire information about alcohol rehabilitation?: No Counseling given: No Desire information about substance/drug rehabilitation?: No Counseling given: No Caregiver/support person: No Lives independently: Yes Household members: spouse Housing: House Marital status: Number of children: 4 Number of grandchildren: 20 service: No Pets and animals: Yes Pets & animals: cat(s) History of recent travel: No Current gender identity: Male Vitals/I&O/Wt Last Vital Signs Temp 98.9 F 07/19/20 14:23 Pulse 60 07/19/20 14:23 Resp 18 07/19/20 14:23 BP 162/66 07/19/20 14:23 Pulse Ox 95 07/19/20 14:23 Weight last 48 hrs Weight 165 lb Physical Exam Const: COMMON NORMALS: no acute distress and patient oriented x3 GENERAL APPEARANCE: cooperative ORIENTATION/CONSCIOUSNESS: Yes awake, Yes oriented to person, Yes oriented to place and Yes oriented to time HENMT: COMMON NORMALS: normocephalic HEAD & SCALP: normocephalic Eye: COMMON NORMALS: Equal, round and reactive pupils present and no scleral icterus PUPIL: Yes Equal, round and reactive pupils present Lymph: LYMPHATIC: no lymphadenopathy noted Chest: COMMONS NORMALS: normal inspection of the chest Resp: COMMON NORMALS: normal respiratory effort and clear to auscultation bilaterally AUSCULTATION: clear to auscultation bilaterally Cardio: COMMON NORMALS: S1 normal heart sound present and S2 normal heart sound present; negative for No murmurs present (Cardio) HEART SOUNDS: S1 normal heart sound present and S2 normal heart sound present GI: COMMON NORMALS: Soft to palpation; negative for No hepatosplenomegaly present INSPECTION: Yes normal to inspection PALPATION: Yes Soft to palpation, No Firmness to palpation present (GI), No Tenderness to palpation present (GI), No Guarding due to palpation present (GI), No Rigid due to palpation and No No hepatosplenomegaly present Neuro: COMMON NORMALS: patient oriented x3 SENSORIUM/ORIENTATION: Yes oriented to person, Yes oriented to place and Yes oriented to time Psych: COMMON NORMALS: mental status grossly normal Skin: COMMON NORMALS: no rashes or lesions noted GENERAL SKIN EXAM: no rashes or lesions noted Hospital Course Discharge Summary Patient spent few hours in the emergency department waiting for bed we can see on the floor and during that time he responded well to conservative measures and demonstrated resolution of his index clinical symptomatology, at that time patient experienced his interest in food and he did tolerate that well and felt appropriate that the patient be discharged home with the plan to follow-up with me at the outpatient surgical services for planning to perform elective laparoscopic cholecystectomy and at the same time having cardiac clearance to avoid increased risk of myocardial infarction. Patient experienced his agreement on the plan of care and was discharged home on antibiotics. SSS Data Data Completed and Pending: Completed Studies During Hospitalization Category Date Time Status US gall bladder 7 [id number] Urgent Ultrasound 07/19/20 06:55 Completed Diagnoses at Discharge Discharge Diagnosis (1) Biliary colic: Status: Acute Permanent problem details: Conservative measures Return to surgery office in 10 days for reevaluation Plan for laparoscopic cholecystectomy once cardiac clearance is achieved. Assurance and education All questions have been answered and all concerns have been addressed to patient's satisfaction. Discharge Plan Discharge Patient Disposition: Home Condition: Stable Prescriptions: New Cipro 500 mg tablet 500 mg PO BID 7 Days Qty: 14 RF: 0 Continued nitroglycerin [Nitrostat] 0.4 mg tablet, sublingual 0.4 mg SUBLINGUAL Q5M PRN (Reason: chest pain) 30 Days Qty: 30 RF: 3 cyanocobalamin (vitamin B-12) [Vitamin B-12] 1,000 mcg tablet 1,000 mcg PO DAILY RF: 0 cholecalciferol (vitamin D3) 1,000 unit capsule 2,000 unit PO DAILY RF: 0 sertraline [Zoloft] 100 mg tablet 50 mg PO DAILY RF: 0 acetaminophen 500 mg capsule 500 mg PO BEDTIME PRN (Reason: Pain) RF: 0 atorvastatin 80 mg tablet 80 mg PO DAILY Qty: 90 RF: 1 Novolin 70/30 U-100 Insulin 100 unit/mL (70-30) suspension See Rx Instructions SUBCUT BID Qty: 60 RF: 2 prasugrel 10 mg tablet 10 mg PO DAILY Qty: 30 RF: 0 Jardiance 10 mg tablet 10 mg PO DAILY Qty: 90 RF: 1 amlodipine 5 mg tablet 5 mg PO DAILY RF: 0 irbesartan 300 mg tablet 150 mg PO DAILY RF: 0 coenzyme Q10 [CoQ-10] 100 mg Capsule 100 mg PO DAILY RF: 0 Discharge Orders: Discharge Order (Routine); Ordered 07/19/20 Ordered By: Best Dooley Referrals: Best Dooley MD [Physician] - (Return to surgery office in 10 days) Martínez Diehl, SENIOR ENERGY TRADER-C [Primary Care Provider] - Discharge Diet: As Directed Discharge Activity: Increase activity as tolerated Attestations Medical Necessity Statement*: Observation status for clinical evaluation and repeated physical examination. 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
== END 2020-07-19 14:34 | disposition home or self-care (01) ==
PROVIDERS: Emergency Provider Family Medicine; PCP Nurse Practitioner
DX: K81.0 Acute cholecystitis (principal); E11.65 Type 2 diabetes mellitus with hyperglycemia; Z79.4 Long term (current) use of insulin; I10 Essential (primary) hypertension; E11.40 Type 2 diabetes mellitus with diabetic neuropathy, unspecified; E78.5 Hyperlipidemia, unspecified; Z95.1 Presence of aortocoronary bypass graft
CPT/HCPCS: 12345; 76705; 80053; 81003; 83690; 85025; 99283

== ENCOUNTER 2020-07-21 06:36 | Inpatient (IN) | payer MEDICARE, SELFPAY ==
[2020-07-21] VITALS (9 sets, daily range): BP systolic 140–160; BP diastolic 67–92; PULSE 70–90; RESP 15–20; TEMP 36.3–37.7; O2SAT 92–95; BMI 23.6
--- NOTE | 2020-07-21 06:43 | CTR_ITS ---
PROCEDURE INFORMATION: Exam: CT Abdomen And Pelvis With Contrast Exam date and time: 07/21/2020 6:55 AM Age: 80 years old Clinical indication: Abdominal pain; Localized; Right upper quadrant (ruq); Prior surgery; Surgery date: 6+ months; Surgery type: Hernia, appy, cabg; Additional info: Abd pain TECHNIQUE: Imaging protocol: Computed tomography of the abdomen and pelvis with intravenous contrast. Radiation optimization: All CT scans at this facility use at least one of these dose optimization techniques: automated exposure control; mA and/or kV adjustment per patient size (includes targeted exams where dose is matched to clinical indication); or iterative reconstruction. Contrast material: VISIPAQUE 320; Contrast volume: 95 ml; Contrast route: INTRAVENOUS (IV); COMPARISON: Right upper quadrant ultrasound 07/21/20 RADIATION DOSE METRICS: Total DLP (mGy-cm): 523.82 FINDINGS: Pleural space: Interstitial prominence, trace airspace disease, and mild pleural thickening. Coronary artery calcification. Liver: Hepatic granulomata. Gallbladder and bile ducts: Markedly abnormal gallbladder with dilatation, cholelithiasis, high attenuation bile, infiltration of pericholecystic fat, and pericholecystic fluid. The findings would be consistent with acute cholecystitis in the appropriate clinical setting. No biliary ductal dilatation. Pancreas: Ultrasound detected pancreatic ductal dilatation is poorly visualized on CT. No focal pancreatic mass. Spleen: Splenic granulomata. Adrenal glands: Unremarkable adrenals. Kidneys and ureters: 5 mm nodular hypodensity in the lateral right kidney which is too small to accurately characterize. No hydronephrosis. Stomach and bowel: Mild wall thickening in the nondistended stomach. No significant small bowel dilatation. Prominent stool and diverticula, without pericolonic inflammation. Localized wall thickening in the a padded flexure. Appendix: Appendix not visualized. Intraperitoneal space: No dependent free fluid in the pelvis. Vasculature: Prominent vascular calcification and atherosclerotic plaque. No abdominal aortic aneurysm. Lymph nodes: Subcentimeter lymph nodes. Urinary bladder: Bladder dilatation. Reproductive: Poorly characterized 1.4 cm nodular hypodensity in the left inferolateral aspect of the prostate, along with calcifications and inhomogeneous attenuation. Bones/joints: 2.4 cm intraosseous hemangioma in the L4 vertebral body. Osteopenia and degenerative change. Soft tissues: Mild symmetric infiltration of subcutaneous fat in the anterior abdominal wall. CT/CT abdomen pelvis w con* [id number] IMPRESSION: 1. Markedly abnormal gallbladder with dilatation, cholelithiasis, high attenuation bile, infiltration of pericholecystic fat, and pericholecystic fluid. The findings would be consistent with acute cholecystitis in the appropriate clinical setting. 2. Additional findings as described above. Radiation Dose CTDIVOL = (mGy): DLP = 523.82 (mGy-cm)
--- NOTE | 2020-07-21 06:45 | W.ED.ABDPA2 ---
HPI - Abdominal Pain General: Chief Complaint: Abdominal Pain Stated Complaint: RUQ PAIN Time Seen by Provider: 07/21/20 06:42 Source: patient Mode of arrival: ambulatory Limitations: no limitations History of Present Illness: HPI narrative: 80-year-old male states been having abdominal pain over the last 2 days. Is in his right upper quadrant. Patient seen here yesterday and Dr. Dooley and seen patient was going to set up for outpatient cholecystectomy. Patient states he is continued of pain and rates pain a 9 out of 10. Has had no vomiting. Denies any fever. Denies any worsening improving factors. MD elicited complaint: abdominal pain Associated Symptoms: Denies chills, dysuria and fever(s) Review of Systems Const: Denies: fever(s), chills, body aches or change in appetite Eyes: Denies: blurry vision or eye discomfort ENMT: Denies: throat pain or dental pain Card: Denies: chest pain Resp: Denies: dyspnea GI: Reports: abdominal pain : Denies: dysuria Musc: Denies: neck pain or back pain Skin/Breast: Denies: rash Neuro: Denies: headache(s) Psych: Denies: depression Jonatan/Lymph: Denies: easy bruising All/Imm: Denies: urticaria PFSH ED PFSH: Medical History Aortic heart murmur Atherosclerotic heart disease of [place] coronary artery with unstable angina pectoris Most recent intervention February 2020 medicated stent secondary to in-stent vein graft to diagonal and obtuse marginal stenosis Atherosclerotic heart disease of [place] coronary artery without angina pectoris B12 deficiency Benign essential HTN Carotid artery stenosis Less than 50% stenosis bilateral ICA moderate lateral mentis plaque Chronic gastroesophageal reflux disease Chronic kidney disease (CKD) Diabetes mellitus with neuropathy Dyslipidemia Mitral regurgitation PAD (peripheral artery disease) PTSD (post-traumatic stress disorder) [place] (peptic ulcer disease) Type 2 diabetes mellitus with hyperglycemia Vitamin D insufficiency Surgical History H/O cardiac catheterization At [facility] in 2014 no revascularizable lesion was managed medically History of appendectomy History of coronary artery stent placement 2012 Found to have three-vessel coronary disease high-grade lesion in venous graft to the obtuse marginal, [place] to the LAD was found to be patent, underwent PCI of the venous graft, History of percutaneous coronary intervention [place]: June Saphenous venous graft to obtuse marginal 1 and 2 History of umbilical hernia repair 1983 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 Family History Other Diabetes Heart disease Hypertension Social History Smoking and tobacco status: never smoked Second hand smoke exposure: No Smoking risk assessment/counseling performed?: No Alcohol intake: never Desire information about alcohol rehabilitation?: No Counseling given: No Desire information about substance/drug rehabilitation?: No Counseling given: No Caregiver/support person: No Lives independently: Yes Household members: spouse Housing: House Marital status: Number of children: 4 Number of grandchildren: 20 service: No Pets and animals: Yes Pets & animals: cat(s) History of recent travel: No Current gender identity: Male Physical Exam Const: COMMON NORMALS: no acute distress, patient oriented x3 and healthy appearing HENMT: COMMON NORMALS: normocephalic and atraumatic HEAD & SCALP: normocephalic and atraumatic Eye: COMMON NORMALS: Equal, round and reactive pupils present and EOMs intact bilaterally PUPIL: Yes Equal, round and reactive pupils present Neck/C-Spine: COMMON NORMALS: full ROM and supple Chest: COMMONS NORMALS: normal inspection of the chest and normal palpation of entire chest wall Resp: COMMON NORMALS: normal respiratory effort, No retractions, No use of accessory muscles and clear to auscultation bilaterally AUSCULTATION: clear to auscultation bilaterally Cardio: COMMON NORMALS: regular rate, regular rhythm and No murmurs present (Cardio) RATE: regular rate RHYTHM: regular rhythm GI: COMMON NORMALS: Normal to inspection, nondistended, normoactive bowel sounds present, Soft to palpation and no masses PALPATION: Yes Soft to palpation and Yes Tenderness to palpation present (GI) Details: RUQ Extremity: COMMON NORMALS: normal to inspection and full ROM Neuro: COMMON NORMALS: patient oriented x3, moves all extremities and no focal motor deficits Psych: COMMON NORMALS: mental status grossly normal, Normal thought process present and cooperative THOUGHT PROCESS: Normal thought process present Skin: COMMON NORMALS: no rashes or lesions noted and no wounds GENERAL SKIN EXAM: no rashes or lesions noted Course Vital Signs: Vital signs: Vital Signs Temperature 97.3 F L 07/21/20 06:41 Pulse Rate 80 07/21/20 06:41 Respiratory Rate 18 07/21/20 06:41 Blood Pressure 160/87 07/21/20 06:41 Pulse Oximetry 95 07/21/20 06:41 MDM - Abdominal Pain MDM Narrative: Medical decision making narrative: Oscar presents here with cholecystitis. Patient has been seen in the ER by Dr. Dooley. MRCP shows no signs of stone in bile duct. Patient started on IV antibiotics and will admit. Patient has no signs of septic shock. Lab Data: Labs: Lab Results 07/21/20 07/21/20 07/21/20 Range/Units 06:48 06:48 06:48 WBC 21.5 H (4.0-10.0) 10^3/ uL RBC 5.23 (4.1-5.3) 10^6/u L Hgb 15.7 (11.7-16.6) g/dL Hct 49.2 (42.0-52.0) % MCV 94.1 H (80-94) fL MCH 30.0 (28.0-34.0) pg MCHC 31.9 (30.0-36.0) g/dL RDW 12.9 (12.1-15.1) % Plt Count 151 (130-400) 10^3/c mm MPV 11.5 H (7.4-10.4) fL Neut % (Auto) 82.8 % Lymph % (Auto) 8.3 % Osborne % (Auto) 7.9 % Eos % (Auto) 0.0 % Baso % (Auto) 0.2 % Neut # (Auto) 17.78 H (1.8-7.7) 10^3/u L Lymph # (Auto) 1.8 (0.8-4.8) 10^3/u L Osborne # (Auto) 1.7 H (0.2-0.9) 10^3/u L Eos # (Auto) 0.0 (0.0-0.8) 10^3/u L Baso # (Auto) 0.0 (0.0-0.1) 10^3/u L Nucleated RBC % (a uto) 0 % Nucleated RBCs # 0.0 /100WBC PT 15.50 H (12.1-14.9) SECO NDS INR 1.19 (0.8-1.2) Sodium 135 L (136-145) mmol/L Potassium 4.5 (3.5-5.1) mmol/L Chloride 97 L (98-107) mmol/L Carbon Dioxide 21 L (22-29) mmol/L Anion Gap 21.5 H (5-19) BUN 30 H (8-23) mg/dL Creatinine 1.3 H (0.7-1.2) mg/dL GFR Calculation Not Reportable Glucose 218 H (65-115) mg/dL Calculated Osmolal ity 293 (285-295) mOsm/k g Lactic Acid (0.5-2.2) mmol/L Calcium 9.8 (8.5-10.5) mg/dL Total Bilirubin 2.5 H (0.15-1.2) mg/dL AST 47 H (0-40) U/L ALT 22 (0-41) U/L Alkaline Phosphata se 101 (40-130) IU/L Total Protein 7.4 (6.6-8.7) g/dL Albumin 4.2 (3.5-5.2) g/dL Globulin 3.2 (1.3-4.6) g/dL Lipase 15 (13-60) U/L 07/21/20 Range/Units 06:48 WBC (4.0-10.0) 10^3/ uL RBC (4.1-5.3) 10^6/u L Hgb (11.7-16.6) g/dL Hct (42.0-52.0) % MCV (80-94) fL MCH (28.0-34.0) pg MCHC (30.0-36.0) g/dL RDW (12.1-15.1) % Plt Count (130-400) 10^3/c mm MPV (7.4-10.4) fL Neut % (Auto) % Lymph % (Auto) % Osborne % (Auto) % Eos % (Auto) % Baso % (Auto) % Neut # (Auto) (1.8-7.7) 10^3/u L Lymph # (Auto) (0.8-4.8) 10^3/u L Osborne # (Auto) (0.2-0.9) 10^3/u L Eos # (Auto) (0.0-0.8) 10^3/u L Baso # (Auto) (0.0-0.1) 10^3/u L Nucleated RBC % (a uto) % Nucleated RBCs # /100WBC PT (12.1-14.9) SECO NDS INR (0.8-1.2) Sodium (136-145) mmol/L Potassium (3.5-5.1) mmol/L Chloride (98-107) mmol/L Carbon Dioxide (22-29) mmol/L Anion Gap (5-19) BUN (8-23) mg/dL Creatinine (0.7-1.2) mg/dL GFR Calculation Glucose (65-115) mg/dL Calculated Osmolal ity (285-295) mOsm/k g Lactic Acid 2.0 (0.5-2.2) mmol/L Calcium (8.5-10.5) mg/dL Total Bilirubin (0.15-1.2) mg/dL AST (0-40) U/L ALT (0-41) U/L Alkaline Phosphata se (40-130) IU/L Total Protein (6.6-8.7) g/dL Albumin (3.5-5.2) g/dL Globulin (1.3-4.6) g/dL Lipase (13-60) U/L Imaging Data ^: CT Abd/Pel: Radiologist's impression: [address] [address] [address] Scan Report Signed Patient: Oscar Telles Unit #: [id number] : 1940 Age/Sex: 80 / M ADM Date: 07/21/20 Loc: ER Room/Bed: Attending Dr: Ordering Provider/Ordering MD: Chelsey Shea MD Date of Service: 07/21/20 Procedure(s): CT abdomen pelvis w con* [id number] Accession Number(s): [id number] Report Number: [id number] PROCEDURE INFORMATION: Exam: CT Abdomen And Pelvis With Contrast Exam date and time: 07/21/2020 6:55 AM Age: 80 years old Clinical indication: Abdominal pain; Localized; Right upper quadrant (ruq); Prior surgery; Surgery date: 6+ months; Surgery type: Hernia, appy, cabg; Additional info: Abd pain TECHNIQUE: Imaging protocol: Computed tomography of the abdomen and pelvis with intravenous contrast. Radiation optimization: All CT scans at this facility use at least one of these dose optimization techniques: automated exposure control; mA and/or kV adjustment per patient size (includes targeted exams where dose is matched to clinical indication); or iterative reconstruction. Contrast material: VISIPAQUE 320; Contrast volume: 95 ml; Contrast route: INTRAVENOUS (IV); COMPARISON: Right upper quadrant ultrasound 07/21/20 RADIATION DOSE METRICS: Total DLP (mGy-cm): 523.82 FINDINGS: Pleural space: Interstitial prominence, trace airspace disease, and mild pleural thickening. Coronary artery calcification. Liver: Hepatic granulomata. Gallbladder and bile ducts: Markedly abnormal gallbladder with dilatation, cholelithiasis, high attenuation bile, infiltration of pericholecystic fat, and pericholecystic fluid. The findings would be consistent with acute cholecystitis in the appropriate clinical setting. No biliary ductal dilatation. Pancreas: Ultrasound detected pancreatic ductal dilatation is poorly visualized on CT. No focal pancreatic mass. Spleen: Splenic granulomata. Adrenal glands: Unremarkable adrenals. Kidneys and ureters: 5 mm nodular hypodensity in the lateral right kidney which is too small to accurately characterize. No hydronephrosis. Stomach and bowel: Mild wall thickening in the nondistended stomach. No significant small bowel dilatation. Prominent stool and diverticula, without pericolonic inflammation. Localized wall thickening in the a padded flexure. Appendix: Appendix not visualized. Intraperitoneal space: No dependent free fluid in the pelvis. Vasculature: Prominent vascular calcification and atherosclerotic plaque. No abdominal aortic aneurysm. Lymph nodes: Subcentimeter lymph nodes. Urinary bladder: Bladder dilatation. Reproductive: Poorly characterized 1.4 cm nodular hypodensity in the left inferolateral aspect of the prostate, along with calcifications and inhomogeneous attenuation. Bones/joints: 2.4 cm intraosseous hemangioma in the L4 vertebral body. Osteopenia and degenerative change. Soft tissues: Mild symmetric infiltration of subcutaneous fat in the anterior abdominal wall. CT/CT abdomen pelvis w con* [id number] IMPRESSION: 1. Markedly abnormal gallbladder with dilatation, cholelithiasis, high attenuation bile, infiltration of pericholecystic fat, and pericholecystic fluid. The findings would be consistent with acute cholecystitis in the appropriate clinical setting. 2. Additional findings as described above. Discharge Plan Discharge Prescriptions: No Action nitroglycerin [Nitrostat] 0.4 mg tablet, sublingual 0.4 mg SUBLINGUAL Q5M PRN (Reason: chest pain) 30 Days Qty: 30 RF: 3 cyanocobalamin (vitamin B-12) [Vitamin B-12] 1,000 mcg tablet 1,000 mcg PO DAILY RF: 0 cholecalciferol (vitamin D3) 1,000 unit capsule 2,000 unit PO DAILY RF: 0 sertraline [Zoloft] 100 mg tablet 50 mg PO DAILY RF: 0 acetaminophen 500 mg capsule 500 mg PO BEDTIME PRN (Reason: Pain) RF: 0 atorvastatin 80 mg tablet 80 mg PO DAILY Qty: 90 RF: 1 Novolin 70/30 U-100 Insulin 100 unit/mL (70-30) suspension See Rx Instructions SUBCUT BID Qty: 60 RF: 2 prasugrel 10 mg tablet 10 mg PO DAILY Qty: 30 RF: 0 Jardiance 10 mg tablet 10 mg PO DAILY Qty: 90 RF: 1 amlodipine 5 mg tablet 5 mg PO DAILY RF: 0 irbesartan 300 mg tablet 300 mg PO DAILY RF: 0 ciprofloxacin HCl [Cipro] 500 mg tablet 500 mg PO BID 7 Days Qty: 14 RF: 0 coenzyme Q10 [CoQ-10] 100 mg Capsule 100 mg PO DAILY RF: 0 Coding Level of Care Code ED Sprinkling System Installer for Chg Fwd Exam Comprehensive
[2020-07-21] MEDS: ondansetron 2 mg/ML SDV 2 mL 4 MG IVP (06:56)
[2020-07-21] MEDS: morphine 4 mg/mL SDV 1 mL IVP (06:56)
[2020-07-21 07:04] LABS: Basophils % 0.2 %; Hematocrit 49.2 % (42.0-52.0); Hemoglobin 15.7 g/dL (11.7-16.6); Lymphocytes # 1.8 10^3/uL (0.8-4.8); Lymphocytes % 8.3 %; Mean Corpuscular HGB Conc 31.9 g/dL (30.0-36.0); Mean Corpuscular Volume 94.1 fL (80-94); Mean Platelet Volume 11.5 fL (7.4-10.4); Monocytes # 1.7 10^3/uL (0.2-0.9); Monocytes % 7.9 %; Neutrophils # 17.78 10^3/uL (1.8-7.7); Neutrophils % 82.8 %; Nucleated Red Blood Cells % 0 %; Platelet Count 151 10^3/cmm (130-400); Red Blood Count 5.23 10^6/uL (4.1-5.3); Red Cell Distribution Width 12.9 % (12.1-15.1); White Blood Count 21.5 10^3/uL (4.0-10.0)
--- NOTE | 2020-07-21 07:09 | USR_ITS ---
PROCEDURE INFORMATION: Exam: US Abdomen, Limited; Right Upper Quadrant Exam date and time: 07/21/2020 7:32 AM Age: 80 years old Clinical indication: Abdominal pain; Additional info: Abd pain TECHNIQUE: Imaging protocol: US abdomen. Real time ultrasound with image documentation. Limited exam focused on the right upper quadrant. COMPARISON: US gall bladder [id number] 07/19/2020 6:58 AM FINDINGS: Liver: Prominent periportal echoes without focal hepatic mass. Gallbladder: Extensive echogenic bile in the dilated gallbladder along with wall thickening/edema and cholelithiasis. Technologist assessment of sonographic Watkins sign was not reported. Common bile duct: Incompletely visualized common bile duct measures 6.5 mm in maximum diameter. Pancreas: Mild pancreatic ductal dilatation. Obscuration of the pancreatic tail by bowel gas. Right kidney: Thinning of right renal parenchyma. No hydronephrosis. Aorta: Normal caliber of the visualized abdominal aorta. IVC: Unremarkable as visualized. US/US gall bladder [id number] IMPRESSION: 1. Mild pancreatic ductal dilatation. 2. Extensive echogenic bile in the dilated gallbladder along with wall thickening/edema and cholelithiasis.
[2020-07-21 07:11] LABS: Alanine Aminotransferase 22 U/L (0-41); Albumin Level 4.2 g/dL (3.5-5.2); Alkaline Phosphatase 101 IU/L (40-130); Anion Gap 21.5 (5-19); Aspartate Amino Transferase 47 U/L (0-40); Blood Urea Nitrogen 30 mg/dL (8-23); Calcium 9.8 mg/dL (8.5-10.5); Carbon Dioxide 21 mmol/L (22-29); Chloride 97 mmol/L (98-107); Globulin 3.2 g/dL (1.3-4.6); Glucose 218 mg/dL (65-115); Lipase 15 U/L (13-60); Osmolality Calculated 293 mOsm/kg (285-295); Potassium 4.5 mmol/L (3.5-5.1); Sodium 135 mmol/L (136-145); Total Bilirubin 2.5 mg/dL (0.15-1.2); Total Protein 7.4 g/dL (6.6-8.7)
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
[2020-07-21 07:22] LABS: INR 1.19 (0.8-1.2)
[2020-07-21] MEDS: ciprofloxacin 400 MG/200 ML PREMIX 200 MG IV ×2 (07:25→21:37)
[2020-07-21] MEDS: metroNIDAZOLE IV 500 MG/100 ML PREMIX 100 MG IV ×3 (07:25→23:19)
--- NOTE | 2020-07-21 07:26 | PC.NURSE ---
Surgeon at bedside discussing treatment options with patient.
--- NOTE | 2020-07-21 07:34 | MRR_ITS ---
PROCEDURE INFORMATION: Exam: MR Abdomen Without Contrast Exam date and time: 07/21/2020 9:06 AM Age: 80 years old Clinical indication: Abdominal pain; Localized; Right; Additional info: Abd pain TECHNIQUE: Imaging protocol: MR of the abdomen without contrast. COMPARISON: CT abdomen pelvis w con* [id number] 07/21/2020 8:09 AM FINDINGS: Liver: No mass. Gallbladder and bile ducts: Distended gallbladder measuring 5.4 cm caliber redemonstrated with small intraluminal gallstones, mild gallbladder wall thickening and moderate pericholecystic edema. Mild pericholecystic fluid. The common bile duct measures 4.7 mm. No ductal calculi as visualized. Pancreas: Severe pancreatic atrophy. Spleen: Unremarkable. No splenomegaly. Adrenals: Unremarkable. No mass. Kidneys and ureters: Unremarkable. No solid mass. No hydronephrosis. Stomach and bowel: 2nd portion duodenal edema which is felt to be secondary. Intraperitoneal space: No free fluid. Arteries: No abdominal aortic aneurysm. Bones/joints: The patient is status post median sternotomy with sternal cerclage wires. Lumbar vertebral body hemangiomas. Soft tissues: Unremarkable. MR/MR MRCP [id number] IMPRESSION: 1. Cholelithiasis with acute cholecystitis. 2. No extrahepatic or intrahepatic biliary ductal dilatation or ductal calculus.
[2020-07-21] MEDS: iodixanol 320 mg/mL 100mL Btl IV (08:14)
--- NOTE | 2020-07-21 11:03 | PM.HP ---
Providers/Chief Complaint Admitting Physician: Maury Trevino MD Primary Care Provider: Martínez Diehl, CORPORATE ATTORNEY-C Chief Complaint: RUQ PAIN History of Present Illness Oscar Telles is a 80 year old male presents emergency department with severe mostly right upper quadrant abdominal pain that initially started last Wednesday when he had 3 episodes of nausea and vomiting with some improvement. Patient presented to ER last Wednesday and was seen by Dr. Lockhart. Because patient is on prasugrel surgery could not be done and he was started on ciprofloxacin with plan to follow-up in the surgery office in 10 days. Patient did not do well and he presented to ER today. His WBC increased to 21.5 mostly neutrophilic. He was unable to eat or drink in the last 3 days. He appears very dehydrated. His total bilirubin increased to 2.5 and he was further evaluated with MRCP showing cholecystitis but otherwise no biliary ductal dilation. Dr. Dooley requested patient to be admitted to hospitalist service as he is not planning to do surgery at this point since patient is on prasugrel. From cardiac standpoint patient denies any chest pain. Reports chronic dyspnea on exertion which is unchanged for many years. His abdominal pain during my evaluation is 3-4 out of 10. Reports that only analgesics given in ER improves his pain otherwise he denies any alleviating or aggravating factors. Reports that when pain gets to severe it becomes somewhat diffuse throughout at times even involving his back. Denies fever or chills. Reports that since his last episode of vomiting last Wednesday he has not been nauseous. His last bowel movement was yesterday which was formed without evidence of melena or hematochezia. Reports that penicillin and aspirin he received while he was in school caused him to have tongue and lip swelling. He is diabetic for approximately 30 years. He had three-vessel CABG approximately 15 years ago followed by multiple stents. Denies previous history of stroke. 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.); Denies: joint swelling Skin/Breast: Denies: rash or erythema Neuro: Denies: headache(s) or weakness in extremities Psych: Denies: depression or suicidal ideation Endo: Denies: excessive sweating Jonatan/Lymph: Denies: easy bleeding or tender lymph nodes All/Imm: Denies: throat swelling Medications/Allergies Home Medications Medication Instructions Recorded Confirmed Last Taken Type cholecalciferol (vitamin D3) 25 2,000 unit PO DAILY 09/22/19 07/21/20 07/20/20 History mcg (1,000 unit) capsule cyanocobalamin (vitamin B-12) 1,000 mcg PO DAILY 09/22/19 07/21/20 07/20/20 History 1,000 mcg tablet nitroglycerin 0.4 mg sublingual 0.4 mg SUBLINGUAL Q5M PRN 30 Days 10/26/19 07/21/20 02/14/20 Rx tablet #30 tab coenzyme Q10 [CoQ-10] 100 mg PO DAILY 02/14/20 07/21/20 07/20/20 History acetaminophen 500 mg capsule 500 mg PO BEDTIME PRN cap 02/26/20 07/21/20 07/20/20 History sertraline 100 mg tablet 50 mg PO DAILY tab 03/14/20 07/21/20 07/20/20 History atorvastatin 80 mg tablet 80 mg PO DAILY #90 tab 06/19/20 07/21/20 07/20/20 Rx insulin human U-100 NPH-regulr See Rx Instructions SUBCUT BID #60 06/19/20 07/21/20 07/20/20 Rx 70-30 mix 100 unit/mL subcutaneous ml susp prasugrel 10 mg tablet 10 mg PO DAILY #30 tab 06/19/20 07/21/20 07/20/20 Rx empagliflozin 10 mg tablet 10 mg PO DAILY #90 tab 06/21/20 07/21/20 07/20/20 Rx amlodipine 5 mg PO DAILY 07/19/20 07/21/20 07/20/20 History ciprofloxacin HCl [Cipro] 500 mg PO BID 7 Days #14 tab 07/19/20 07/21/20 07/20/20 Rx irbesartan 300 mg PO DAILY 07/19/20 07/21/20 07/20/20 History Allergies Allergy/AdvReac Type Severity Reaction Status Date / Time aspirin Allergy ADR-Swelling Verified 07/21/20 07:28 of the Eye NSAIDS (Non-Steroidal Allergy Unknown Verified 07/21/20 07:28 Anti-Inflamma Penicillins Allergy Unknown Verified 07/21/20 07:28 sulfamethoxazole Allergy Unknown Verified 07/21/20 07:28 [From Bactrim] trimethoprim [From Bactrim] Allergy Unknown Verified 07/21/20 07:28 metformin AdvReac ADR-Gastrointestinal Verified 07/21/20 07:28 Upset PFSH Acute PFSH: Medical History Aortic heart murmur Atherosclerotic heart disease of [place] coronary artery with unstable angina pectoris Most recent intervention February 2020 medicated stent secondary to in-stent vein graft to diagonal and obtuse marginal stenosis Atherosclerotic heart disease of [place] coronary artery without angina pectoris B12 deficiency Benign essential HTN Carotid artery stenosis Less than 50% stenosis bilateral ICA moderate lateral mentis plaque Chronic gastroesophageal reflux disease Chronic kidney disease (CKD) Diabetes mellitus with neuropathy Dyslipidemia Mitral regurgitation PAD (peripheral artery disease) PTSD (post-traumatic stress disorder) 2004 [facility] PUD (peptic ulcer disease) Type 2 diabetes mellitus with hyperglycemia Vitamin D insufficiency Surgical History H/O cardiac catheterization [place] [facility] [place] no revascularizable lesion was managed medically History of appendectomy History of coronary artery stent placement 2012 Found to have three-vessel coronary disease high-grade lesion in venous graft to the obtuse marginal, [place] to the LAD was found to be patent, underwent PCI of the venous graft, History of percutaneous coronary intervention [place]: June Saphenous venous graft to obtuse marginal 1 and 2 History of umbilical hernia repair 1984 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 Family History Other Diabetes Heart disease Hypertension Social History Smoking and tobacco status: never smoked Second hand smoke exposure: No Smoking risk assessment/counseling performed?: No Alcohol intake: never Desire information about alcohol rehabilitation?: No Counseling given: No Desire information about substance/drug rehabilitation?: No Counseling given: No Caregiver/support person: No Lives independently: Yes Household members: spouse Housing: House Marital status: Number of children: 4 Number of grandchildren: 20 service: No Pets and animals: Yes Pets & animals: cat(s) History of recent travel: No Current gender identity: Male Vitals/I&O/Wt Last Vital Signs Temp 98.2 F 07/21/20 11:01 Pulse 83 07/21/20 11:01 Resp 16 07/21/20 11:01 BP 160/71 07/21/20 11:01 Pulse Ox 94 07/21/20 11:01 07/20/20 07/21/20 07/21/20 22:59 06:59 14:59 Output Total 150 / 150 Balance -150 / -150 Weight last 48 hrs Weight 74.843 kg Physical Exam Const: COMMON NORMALS: no acute distress, patient oriented x3 and alert HENMT: COMMON NORMALS: normocephalic and atraumatic HEAD & SCALP: normocephalic and atraumatic Eye: COMMON NORMALS: EOMs intact bilaterally, conjunctivae normal and no scleral icterus CONJUNCTIVA: Yes conjunctivae normal Neck/C-Spine: COMMON NORMALS: no lymphadenopathy and no meningeal signs Lymph: LYMPHATIC: no lymphadenopathy noted Chest: COMMONS NORMALS: normal palpation of entire chest wall Resp: COMMON NORMALS: No use of accessory muscles and clear to auscultation bilaterally AUSCULTATION: clear to auscultation bilaterally Cardio: COMMON NORMALS: regular rate, regular rhythm and No murmurs present (Cardio) RATE: regular rate RHYTHM: regular rhythm OTHER: No lower extremity edema GI: COMMON NORMALS: Soft to palpation PALPATION: Yes Soft to palpation, Yes Tenderness to palpation present (GI) Details: RUQ, No Guarding due to palpation present (GI) and No Rigid due to palpation RECTAL EXAM: Yes deferred OTHER: Patient reports that applying pressure or releasing elicits the same amount of pain. : COMMON NORMALS: Yes no CVA tenderness BLADDER/KIDNEY EXAM: Yes no CVA tenderness Back/Pelvis: COMMON NORMALS: no CVA tenderness and thoracic and lumbar spine normal to inspection Extremity: COMMON NORMALS: normal to inspection and capillary refill normal Neuro: COMMON NORMALS: patient oriented x3 and no focal motor deficits SENSORIUM/ORIENTATION: Yes alert MENINGEAL SIGNS: Yes no meningeal signs Psych: COMMON NORMALS: mental status grossly normal, Normal thought process present and cooperative THOUGHT PROCESS: Normal thought process present Skin: COMMON NORMALS: no rashes or lesions noted GENERAL SKIN EXAM: no rashes or lesions noted Data : 07/21/20 06:48 07/21/20 06:48 Micro: Microbiology 07/21/20 07:25 Blood Culture - Preliminary Blood SPECIMEN COLLECTED A&P Assessment and plan (1) Acute cholecystitis: Status: Acute (2) Chronic kidney disease (CKD): Status: Acute Qualifiers: Chronic kidney disease stage: stage 3 (moderate) Qualified Code(s): N18.3 - Chronic kidney disease, stage 3 (moderate) (3) Type 2 diabetes mellitus with hyperglycemia: Status: Chronic Qualifiers: Diabetes mellitus vermin exterminator insulin use: with vermin exterminator use Qualified Code(s): E11.65 - Type 2 diabetes mellitus with hyperglycemia; Z79.4 - skilled nursing (current) use of insulin (4) Atherosclerotic heart disease of [place] coronary artery without angina pectoris: Status: Chronic Qualifiers: [place] vs. transplanted heart: [place] heart Qualified Code(s): I25.10 - Atherosclerotic heart disease of [place] coronary artery without angina pectoris (5) Dehydration with hyponatremia: Status: Acute Additional A&P Information PLAN: We will continue prasugrel at this point and patient will be started on IV ciprofloxacin and Flagyl. Depending on patient's progress I may discuss case with interventional radiologist for cholecystostomy tube placement. Dr. 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 Patient may require discontinuation of prasugrel and bridge therapy with Integrilin in ICU if surgery is absolutely needed. Hopefully interventional radiologist will be able to perform cholecystostomy tube if needed with prasugrel on. Will hydrate with LR and monitor urinary output. Will start patient on clear liquid diet for now. Will start patient on Lovenox for DVT prophylaxis and monitor CBC. Sliding scale insulin for now. Repeat CMP tomorrow and monitor bilirubin which is likely elevated because of infection and to some degree Gilbert's disease as patient was unable to eat in the last 3 days. Attestations Medical Necessity Statement*: Patient with acute cholecystitis requires close inpatient monitoring and treatment. I expect patient will require more than 2 midnights. Time Spent in Patient Care: Greater than 35 minutes Coding Level of Care Code Acute Digital Marketing Lead for Izzy Deleon Diagnoses Acute cholecystitis K81.0 Chronic kidney disease (CKD) N18.3 Chronic kidney disease stage: stage 3 (moderate) Type 2 diabetes mellitus with hyperglycemia E11.65; Z79.4 Diabetes mellitus senior care insulin use: with vermin exterminator use Atherosclerotic heart disease of [place] coronary artery without angina pectoris I25.10 [place] vs. transplanted heart: [place] heart Dehydration with hyponatremia E86.0; E87.1
[2020-07-21] MEDS: lactated ringers 1,000 ML 100 ML IV ×2 (11:59→23:18)
[2020-07-21] MEDS: enoxaparin 30 mg/0.3 mL Syringe SUBCUT (12:03)
[2020-07-21] MEDS: pantoprazole 40 mg SDV IVP ×2 (12:04→12:05)
[2020-07-21] MEDS: amlodipine 5 mg Tablet PO (12:10)
[2020-07-21 12:22] LABS: Glucose Point of Care 255 mg/dL (70-110)
[2020-07-21] MEDS: prasugrel 10 MG Tablet PO (13:14)
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
[2020-07-21 18:05] LABS: Glucose Point of Care 186 mg/dL (70-110)
--- NOTE | 2020-07-21 18:34 | PC.NURSE ---
Patient has been very pleasant and friendly. Cooperative with cares. Alert and orientated. Has good appetite, and tolerated clear liquids well. Has had good output during this shift.
--- NOTE | 2020-07-21 19:31 | ECG_ITS ---
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 [id number]
[2020-07-21 20:27] LABS: Glucose Point of Care 187 mg/dL (70-110)
[2020-07-21 21:13] LABS: Troponin T (5th) Once 26 ng/L (0-15)
[2020-07-21] MEDS: sennosides 8.6 mg Tablet 17.2 MG PO (21:46)
[2020-07-22 04:00] VITALS: BP 160/68; PULSE 81; RESP 20; TEMP 37.1; O2SAT 93
--- NOTE | 2020-07-22 05:04 | PC.NURSE ---
Pain has been assessed multiple times throughout the night, pt states pain stays around a 4-5 in his abdomen. He has refused pain meds each time they have been offered tonight. States he has been passing gas but has not had a bm tonight. Wants to get up & walk a little later this morning so that maybe he will have a bm.
--- NOTE | 2020-07-22 05:52 | P.PN_ITS ---
Subjective Subjective: Interval history: Patient overall feels better. Lab work is still pending. Vitals/I&O/Wt Last Vital Signs Temp 98.7 F 07/22/20 04:00 Pulse 81 07/22/20 04:00 Resp 20 H 07/22/20 04:00 BP 160/68 07/22/20 04:00 Pulse Ox 93 07/22/20 04:00 07/21/20 07/21/20 07/22/20 14:59 22:59 06:59 Intake Total 120 / 120 1360 / 1480 400 / 1880 Output Total 375 / 375 850 / 1225 600 / 1825 Balance -255 / -255 510 / 255 -200 / 55 Weight last 48 hrs Weight 165 lb Physical Exam Narrative: EXAM NARRATIVE: Patient is conscious alert oriented X3 BMI 24 neck examination PERRLA no masses no cervical lymphadenopathy no jaundice Abdomen less tender nondistended soft no organomegaly guarding or rigidity/no signs of peritonitis Data : 07/22/20 05:48 07/22/20 05:48 Micro: Microbiology 07/21/20 07:25 Blood Culture - Preliminary Blood SPECIMEN COLLECTED A&P Assessment and plan (1) Acute cholecystitis: 0545 am Patient seems to be clinically responding to conservative measures.will continue IV antibiotic therapy IV fluid resuscitation Repeated physical examination We will follow on a.m. labs 0900 am Trending down and leukocytosis and liver function tests. Overall patient is performing appropriately. Can advance to full liquid diet for now and will follow on a.m. labs. Encourage ambulation Assurance and education All questions have been answered and all concerns have been addressed to patient's satisfaction. Status: Acute Attestations Medical Necessity Statement*: Requiring hospitalization for IV antibiotic therapy Time Spent in Patient Care: (>than 50% of time spent in counselling and/or d irect pt care on unit) . Coding Level of Care Code Acute E Commerce Marketing Manager for Izzy Deleon Diagnoses Acute cholecystitis K81.0
[2020-07-22 06:06] LABS: Basophils % 0.1 %; Eosinophils % 0.1 %; Hemoglobin 14.3 g/dL (11.7-16.6); Lymphocytes # 1.2 10^3/uL (0.8-4.8); Lymphocytes % 6.4 %; Mean Corpuscular HGB Conc 32.5 g/dL (30.0-36.0); Mean Corpuscular Hemoglobin 30.2 pg (28.0-34.0); Mean Platelet Volume 11.6 fL (7.4-10.4); Monocytes # 1.6 10^3/uL (0.2-0.9); Neutrophils # 16.28 10^3/uL (1.8-7.7); Neutrophils % 84.4 %; Nucleated Red Blood Cells % 0 %; Platelet Count 127 10^3/cmm (130-400); Red Blood Count 4.73 10^6/uL (4.1-5.3); Red Cell Distribution Width 13.2 % (12.1-15.1); White Blood Count 19.3 10^3/uL (4.0-10.0)
[2020-07-22 06:39] LABS: Glucose Point of Care 199 mg/dL (70-110)
[2020-07-22 06:43] LABS: Alanine Aminotransferase 31 U/L (0-41); Albumin Level 3.4 g/dL (3.5-5.2); Alkaline Phosphatase 95 IU/L (40-130); Anion Gap 18.3 (5-19); Aspartate Amino Transferase 40 U/L (0-40); Blood Urea Nitrogen 29 mg/dL (8-23); Calcium 9.1 mg/dL (8.5-10.5); Carbon Dioxide 22 mmol/L (22-29); Chloride 97 mmol/L (98-107); Globulin 3.1 g/dL (1.3-4.6); Glucose 206 mg/dL (65-115); Osmolality Calculated 288 mOsm/kg (285-295); Phosphorus 3.2 mg/dL (2.5-4.5); Potassium 4.3 mmol/L (3.5-5.1); Sodium 133 mmol/L (136-145); Total Bilirubin 1.2 mg/dL (0.15-1.2); Total Protein 6.5 g/dL (6.6-8.7)
[2020-07-22 07:49] VITALS: BP 163/73; PULSE 96; RESP 18; TEMP 36.8; O2SAT 94
[2020-07-22] MEDS: metroNIDAZOLE IV 500 MG/100 ML PREMIX 100 MG IV ×3 (08:40→23:47)
[2020-07-22] MEDS: sertraline 50 mg Tablet PO (08:43)
[2020-07-22 08:44] VITALS: BP 163/73
[2020-07-22] MEDS: losartan 50 mg Tablet 100 MG PO (08:44)
[2020-07-22] MEDS: atorvastatin 40 mg Tablet 80 MG PO (08:44)
[2020-07-22] MEDS: amlodipine 5 mg Tablet PO (08:44)
[2020-07-22] MEDS: cholecalciferol (vitamin D3) 1,000 unit Tablet 2000 UNIT PO (08:44)
[2020-07-22] MEDS: prasugrel 10 MG Tablet PO (09:06)
[2020-07-22] MEDS: cyanocobalamin 1,000 mcg/mL SDV 1000 MCG IM (09:07)
[2020-07-22] MEDS: lactated ringers 1,000 ML 100 ML IV ×2 (09:08→21:44)
--- NOTE | 2020-07-22 09:42 | PC.CHAP ---
Pastoral Care Encounter/Spiritual Assessment Type of Contact [] Declined deck steward visit [] Patient/Family/Request visit [] Outpatient visit [] Follow-up visit [] Physician referral [] Code/Alert [x] Routine visit [] Staff referral [] Actively dying [] Patient sleeping [] Family support [] [] Out of room [] Palliative care [] [] Receiving care in room [] Pre-surgical visit [] Trauma [] Long length of stay [] ICU visit [] Other: Relational/Emotional Strength [] Patient feels connected with others/family/visitors/staff [] Distress [] Loneliness/isolation [] Abandonment Spirituality of Patient [] Person of Babita [] Attends Mandaeism of their Babita [] Believes in Prayer [] Reads Bible or Moravian materials [] There are Spiritual issues to be addressed Electronic Warfare Officer Interventions [x] Prayer [x] Active listening [x Non-anxious presence [x] Spiritual/emotional support [] Crisis/trauma care [] Spiritual counseling [] Bereavement support [] Provided bereavement packet [] Provided Bible/devotional materials [] Provided toy/stuffed animal, coloring book to patient or family member [] Provided Communion [] Anointing/Damar [] Salvation [x] Completed spiritual assessment [] Other: Impact on Illness or Injury [] Angry [] Fearful [] Anxious [] Often cries [] Exhaustion [] Unable to work [] Unable to attend druze [] Unable to walk/stand [] Unable to read [] Unable to drive [] Unable to eat/drink [] Unable to sleep [] Unable to be with family [] Patient intubated [] Other: Summary resting well Time spent with patient 5 min
[2020-07-22] MEDS: ciprofloxacin 400 MG/200 ML PREMIX 200 MG IV ×2 (10:04→21:44)
--- NOTE | 2020-07-22 10:07 | PM.PN ---
Subjective Subjective: Interval history: Patient denies any chest pain or chest tightness. No shortness of breath. The right upper quadrant pain is improving. The radiology is planning to do a drainage tube today. Continues to remain afebrile. White cell count seems to be coming down. Medications: Reviewed: Yes Medication Review Details: Current Medications Acetaminophen (Acetaminophen 500 Mg Tablet) 500 mg PO BEDTIME PRN PRN Reason: Pain Amlodipine Besylate (Amlodipine 5 Mg Tablet) 5 mg PO DAILY [facility] Last Admin: 07/22/20 08:44 Dose: 5 mg Documented by: Atorvastatin Calcium (Atorvastatin 40 Mg Tablet) 80 mg PO DAILY [facility] Last Admin: 07/22/20 08:44 Dose: 80 mg Documented by: Cyanocobalamin (Cyanocobalamin 1,000 Mcg/Ml Sdv) 1,000 mcg IM DAILY [facility] Last Admin: 07/22/20 09:07 Dose: 1,000 mcg Documented by: Dextrose (Dextrose 50% Syringe 50 Ml) 25 ml IVP ONCE PRN; Protocol PRN Reason: hypoglycemia protocol Dextrose (Dextrose 50% Syringe 50 Ml) 50 ml IVP PRN PRN; Protocol PRN Reason: hypoglycemia protocol Enoxaparin Sodium (Enoxaparin 30 Mg/0.3 Ml Syringe) 30 mg SUBCUT Q24H [facility] Last Admin: 07/21/20 12:03 Dose: 30 mg Documented by: Glucagon (Glucagon 1 Mg/Ml Inj 1 Ml) 1 mg IM ONCE PRN; Protocol PRN Reason: Adult Acute Hypoglycemia Prot. Lactated Ringer's (Lactated Ringers) 1,000 mls @ 100 mls/hr IV .Q10H [facility] Last Admin: 07/22/20 09:08 Dose: 100 mls/hr Documented by: Ciprofloxacin/Dextrose (Cipro) 400 mg in 200 mls @ 200 mls/hr IV Q12H [facility]; Protocol Last Admin: 07/22/20 10:04 Dose: 200 mls/hr Documented by: Metronidazole (Flagyl Iv) 500 mg in 100 mls @ 100 mls/hr IV Q8H [facility]; Protocol Last Admin: 07/22/20 08:40 Dose: 100 mls/hr Documented by: Dextrose (D5w) 500 mls @ 100 mls/hr IV ONCE PRN; Protocol PRN Reason: Adult Acute Hypoglycemia Prot Insulin Aspart (Insulin Aspart 100 Unit/1 Ml) 0 unit SUBCUT WM&BEDTIME [facility]; Protocol Last Admin: 07/22/20 09:06 Dose: 6 unit Documented by: Lactulose (Lactulose Oral Liq 20 Gm/30 Ml Udc) 10 gm PO DAILY PRN PRN Reason: CONSTIPA Losartan Potassium (Losartan 50 Mg Tablet) 100 mg PO DAILY [facility] Last Admin: 07/22/20 08:44 Dose: 100 mg Documented by: Morphine Sulfate (Morphine 4 Mg/Ml Sdv 1 Ml) 2 mg IVP Q4H PRN PRN Reason: SEVERE PAIN Naloxone HCl (Naloxone 0.4 Mg/Ml Sdv) 0.1 mg IVP Q2M PRN PRN Reason: OPIATERV Ondansetron HCl (Ondansetron 2 Mg/Ml Sdv 2 Ml) 4 mg IVP Q8H PRN PRN Reason: vomiting, or N/V if npo Pantoprazole Sodium (Pantoprazole 40 Mg Sdv) 40 mg IVP Q12H [facility] Last Admin: 07/21/20 12:05 Dose: 40 mg Documented by: Prasugrel (Prasugrel 10 Mg Tablet) 10 mg PO DAILY [facility] Last Admin: 07/22/20 09:06 Dose: 10 mg Documented by: Senna (Sennosides 8.6 Mg Tablet) 17.2 mg PO BEDTIME [facility] Last Admin: 07/21/20 21:46 Dose: 17.2 mg Documented by: Sertraline HCl (Sertraline 50 Mg Tablet) 50 mg PO DAILY [facility] Last Admin: 07/22/20 08:43 Dose: 50 mg Documented by: Vitamin D (Cholecalciferol (Vitamin D3) 1,000 Unit Tablet) 2,000 unit PO DAILY [facility] Last Admin: 07/22/20 08:44 Dose: 2,000 unit Documented by: Vitals/I&O/Wt Last Vital Signs Temp 98.3 F 07/22/20 07:49 Pulse 96 07/22/20 07:49 Resp 18 07/22/20 07:49 BP 163/73 07/22/20 08:44 Pulse Ox 94 07/22/20 07:49 07/21/20 07/22/20 07/22/20 22:59 06:59 14:59 Intake Total 1560 / 1680 500 / 2180 983.333 / 983.333 Output Total 850 / 1225 600 / 1825 325 / 325 Balance 710 / 455 -100 / 355 658.333 / 658.333 Weight last 48 hrs Weight 165 lb Physical Exam Narrative: EXAM NARRATIVE: GENERAL: The patient is alert and oriented times three. Not in any acute distress. HEENT: No significant pallor, icterus or lymphadenopathy. T NECK: Trachea appears to be central. No masses noted. No JVD or thyromegaly appreciated. No carotid bruit. RESPIRATORY: Chest is symmetrical. No intercostals muscle retraction or any accessory muscle activation. There is no chest wall tenderness. Breath sounds are heard bilaterally. No rales or rhonchi heard. No evidence of any consolidation. BREASTS: Deferred. HEART: The PMI is in the 5th left intercostals space just inside the midclavicular line. No palpable precordial events. S1 and S2 are normal. No S3 or S4 heard. No pericardial rub or any click heard. Systolic murmur grade 3/6 in the mitral area. No diastolic murmurs. ABDOMEN: Right upper quadrant tenderness present. Seems better than yesterday. No organomegaly appreciated. : Deferred. RECTAL: Deferred. LYMPHATIC: No lymphadenopathy noted in the neck or groin. EXTREMITIES: No edema or cyanosis. No clubbing. Peripheral pulses . The dorsalis pedis and posterior tibial pulses are palpable but weak bilaterally MUSCULOSKELETAL: No acute joint deformities or swelling SKIN: There are no significant scars or skin rash noted. NEUROPSYCHIATRIC: The patient is alert and oriented x3. Appears to be in a good mood. The higher functions are grossly within normal limits. No tremors or rigidity noted. Data : 07/23/20 05:00 07/23/20 05:00 Micro: Microbiology 07/21/20 07:25 Blood Culture - Preliminary Blood NEGATIVE TO DATE A&P Assessment and plan (1) Atherosclerotic heart disease of [place] coronary artery without angina pectoris: Patient has no specific symptoms of coronary insufficiency at this time. He is on Effient. I discussed with Dr. Black regarding the urgency of surgery. According to Dr. Black If the patient is clinically improving with the current treatment, there may not be an urgency in doing the surgery. He would rather do it as an elective procedure at a later time, while being off the Effient for at least 7 days. if the patient can stay on the current dual antiplatelet agents for 6 months after the last PCI , it may be safe to take him off the Effient and do the surgery electively at that time. This was discussed in detail and is understood well. The EKG from yesterday was reviewed. It showed sinus rhythm with diffuse nonspecific ST-T changes. Features of LVH based on voltage criteria. Significant improvement of the ST depressions, compared to EKG from [place] of this year Status: Chronic Qualifiers: [place] vs. transplanted heart: [place] heart Qualified Code(s): I25.10 - Atherosclerotic heart disease of [place] coronary artery without angina pectoris (2) Mitral regurgitation: The mitral dilatation was moderate by echocardiogram in February. Specific intervention at this point. We will continue the current measures. Status: Acute Qualifiers: Cardiac valve disease etiology: nonrheumatic Qualified Code(s): I34.0 - Nonrheumatic mitral (valve) insufficiency (3) Dyslipidemia: Patient may continue on the current medications, if the liver enzymes are staying in the normal range Status: Chronic (4) Benign essential HTN: The blood pressure is of stage II. We will continue to optimize the antihypertensive medications. Status: Chronic (5) Type 2 diabetes mellitus with hyperglycemia: We will continue to optimize the medications. Status: Chronic Qualifiers: Diabetes mellitus manager long term care insulin use: with manager long term care use Qualified Code(s): E11.65 - Type 2 diabetes mellitus with hyperglycemia; Z79.4 - halfway (current) use of insulin (6) Acute cholecystitis: Management as per the primary. 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 transplanted heart: [place] heart Mitral regurgitation I34.0 Cardiac valve disease etiology: nonrheumatic Dyslipidemia E78.5 Benign essential HTN I10 Type 2 diabetes mellitus with hyperglycemia E11.65; Z79.4 Diabetes mellitus longterm insulin use: with manager long term care use Acute cholecystitis K81.0
[2020-07-22 11:39] LABS: Glucose Point of Care 228 mg/dL (70-110)
[2020-07-22 12:00] VITALS: BP 131/75; PULSE 79; RESP 18; TEMP 36.4; O2SAT 96
--- NOTE | 2020-07-22 12:04 | P.PN_ITS ---
Subjective Subjective: Interval history: Patient reports feeling better. He continues to have right upper quadrant abdominal pain but with analgesics feels better. Denies nausea. Tolerates clear liquid diet well. Discussed case with Dr. Delaney, radiologist who has significant concerns of performing cholecystostomy tube placement due to high risk of bleeding as she has to go through a liver. Dr. Delaney reports that in case if patient needs surgical intervention surgery would be a better way to approach as bleeding can be better controlled. Discussed case with Dr. Lockhart and we will continue close monitoring patient and if he is worsening patient will be taken to the OR after discussion with family as he is definitely a very high risk for perioperative complications. Patient's platelets declined to 127. This could be potentially a sign of worsening infection and we will need to continue close monitoring. WBC slightly improved. Bilirubin normalized. Vitals/I&O/Wt Last Vital Signs Temp 98.3 F 07/22/20 07:49 Pulse 96 07/22/20 07:49 Resp 18 07/22/20 07:49 BP 163/73 07/22/20 08:44 Pulse Ox 94 07/22/20 07:49 07/21/20 07/22/20 07/22/20 22:59 06:59 14:59 Intake Total 1560 / 1680 500 / 2180 983.333 / 983.333 Output Total 850 / 1225 600 / 1825 325 / 325 Balance 710 / 455 -100 / 355 658.333 / 658.333 Weight last 48 hrs Weight 74.843 kg Physical Exam Const: COMMON NORMALS: no acute distress and patient oriented x3 Resp: COMMON NORMALS: normal respiratory effort and clear to auscultation kelly aterally AUSCULTATION: clear to auscultation bilaterally Cardio: COMMON NORMALS: regular rate, regular rhythm and S2 normal heart sound present RATE: regular rate RHYTHM: regular rhythm HEART SOUNDS: S2 normal heart sound present OTHER: No lower extremity edema GI: COMMON NORMALS: Normal to inspection, nondistended, normoactive bowel sounds present and Soft to palpation PALPATION: Yes Soft to palpation OTHER: Tender at right upper quadrant. Neuro: COMMON NORMALS: patient oriented x3 and no focal motor deficits Data : 07/22/20 05:48 07/22/20 05:48 Micro: Microbiology 07/21/20 07:25 Blood Culture - Preliminary Blood NEGATIVE TO DATE A&P Assessment and plan (1) Acute cholecystitis: Status: Acute (2) Chronic kidney disease (CKD): Status: Acute Qualifiers: Chronic kidney disease stage: stage 3 (moderate) Qualified Code(s): N18.3 - Chronic kidney disease, stage 3 (moderate) (3) Type 2 diabetes mellitus with hyperglycemia: Status: Chronic Qualifiers: Diabetes mellitus continuous churn buttermaker insulin use: with penitentiary use Qualified Code(s): E11.65 - Type 2 diabetes mellitus with hyperglycemia; 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 transplanted heart: [place] heart Qualified Code(s): I25.10 - Atherosclerotic heart disease of [place] coronary artery without angina pectoris (5) Dehydration with hyponatremia: Status: Acute Additional A&P Information PLAN: Continue current monitoring and treatment as noted above. Continue with daily labs. Will discuss with Dr. Lockhart if he would prefer holding Effient. If patient to worsen I think it will happen in the next several days therefore I am not sure if it would be beneficial to discontinue Effient at this point. Attestations Medical Necessity Statement*: Patient with acute cholecystitis requires close inpatient monitoring and treatment. 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 transplanted heart: [place] heart Dehydration with hyponatremia E86.0; E87.1
[2020-07-22] MEDS: pantoprazole 40 mg SDV IVP (12:13)
[2020-07-22] MEDS: enoxaparin 30 mg/0.3 mL Syringe SUBCUT (12:13)
--- NOTE | 2020-07-22 12:46 | PC.NURSE ---
Rcvd message from Dr Trevino to start patient on clear liquid diet. senior technical writer entered order
[2020-07-22 16:00] VITALS: BP 136/57; PULSE 85; RESP 18; TEMP 36.8; O2SAT 93
[2020-07-22 17:11] LABS: Glucose Point of Care 204 mg/dL (70-110)
[2020-07-22 20:43] VITALS: BP 139/94; PULSE 84; RESP 18; TEMP 36.8; O2SAT 91
[2020-07-22 21:20] LABS: Glucose Point of Care 132 mg/dL (70-110)
[2020-07-22] MEDS: sennosides 8.6 mg Tablet 17.2 MG PO (21:42)
[2020-07-23] VITALS (8 sets, daily range): BP systolic 102–135; BP diastolic 59–71; PULSE 66–86; RESP 17–19; TEMP 36.6–37.2; O2SAT 90–96
[2020-07-23] MEDS: pantoprazole 40 mg SDV IVP ×2 (00:56→11:30)
--- NOTE | 2020-07-23 05:26 | PC.NURSE ---
SHIFT SUMMARY Has rested well. Has c/o some pain in RUQ abdomen but has denied any need for pain med. Abdomen is soft with tenderness present. Is hoping to go home today. IV infusing without difficulty and receiving IV antibiotics. Denies nausea. Voiding per urinal
[2020-07-23 05:36] LABS: Basophils % 0.2 %; Eosinophils # 0.1 10^3/uL (0.0-0.8); Eosinophils % 0.4 %; Hematocrit 38.6 % (42.0-52.0); Hemoglobin 12.3 g/dL (11.7-16.6); Lymphocytes # 1.4 10^3/uL (0.8-4.8); Lymphocytes % 8.4 %; Mean Corpuscular HGB Conc 31.9 g/dL (30.0-36.0); Mean Corpuscular Hemoglobin 29.8 pg (28.0-34.0); Mean Corpuscular Volume 93.5 fL (80-94); Mean Platelet Volume 11.6 fL (7.4-10.4); Monocytes # 1.1 10^3/uL (0.2-0.9); Neutrophils # 13.37 10^3/uL (1.8-7.7); Neutrophils % 83.4 %; Nucleated Red Blood Cells % 0 %; Platelet Count 132 10^3/cmm (130-400); Red Blood Count 4.13 10^6/uL (4.1-5.3); Red Cell Distribution Width 13.4 % (12.1-15.1)
[2020-07-23 05:48] LABS: Alanine Aminotransferase 25 U/L (0-41); Albumin Level 3.1 g/dL (3.5-5.2); Alkaline Phosphatase 88 IU/L (40-130); Aspartate Amino Transferase 45 U/L (0-40); Blood Urea Nitrogen 32 mg/dL (8-23); Calcium 8.9 mg/dL (8.5-10.5); Carbon Dioxide 23 mmol/L (22-29); Chloride 101 mmol/L (98-107); Globulin 2.9 g/dL (1.3-4.6); Glucose 172 mg/dL (65-115); Magnesium 2.1 mg/dL (1.7-2.3); Osmolality Calculated 293 mOsm/kg (285-295); Phosphorus 3.2 mg/dL (2.5-4.5); Sodium 136 mmol/L (136-145)
--- NOTE | 2020-07-23 06:36 | P.PN_ITS ---
Subjective Subjective: Interval history: Patient continues to feel better and trending down and leukocytosis and normalization of liver function tests except for slight elevation of AST. No acute events overnight Interventional radiology was concerned about placing cholecystostomy tube because of the high risk of bleeding Vitals/I&O/Wt Last Vital Signs Temp 97.8 F 07/23/20 03:40 Pulse 66 07/23/20 03:40 Resp 18 07/23/20 03:40 BP 102/71 07/23/20 03:40 Pulse Ox 96 07/23/20 03:40 07/22/20 07/22/20 07/23/20 14:59 22:59 06:59 Intake Total 1283.333 / 7849.832 0854 / 2383.333 420 / 2803.333 Output Total 625 / 625 200 / 825 600 / 1425 Balance 658.333 / 658.333 900 / 1558.333 -180 / 1378.333 Weight last 48 hrs Weight 165 lb Physical Exam Narrative: EXAM NARRATIVE: Patient is conscious alert oriented X3 BMI 24 neck examination PERRLA no masses no cervical lymphadenopathy no jaundice Abdomenmuch less tender nondistended soft no organomegaly guarding or rigidity/no signs of peritonitis Data : 07/23/20 05:00 07/23/20 05:00 Micro: Microbiology 07/21/20 07:25 Blood Culture - Preliminary Blood NEGATIVE TO DATE A&P Assessment and plan (1) Acute cholecystitis: 0615 We will continue conservative measures Any worsening of symptoms I would highly recommend again cholecystostomy tube guarded with platelet transfusion at the time of the procedure to minimize the risk of bleeding yet there is a high risk of clogging the stent. Definitely a cholecystostomy tube is far-way less risky than surgical intervention and high risk of bleeding and conversion to open in addition to hig h risk of [place]. Encourage ambulation Assurance and education All questions have been answered and all concerns have been addressed to patient's satisfaction. Status: Acute Attestations Medical Necessity Statement*: Inpatient hospitalization for IV fluid resuscitation and IV antibiotics Time Spent in Patient Care: (>than 50% of time spent in counselling and/or direct pt care on unit) . 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
[2020-07-23 06:40] LABS: Glucose Point of Care 169 mg/dL (70-110)
--- NOTE | 2020-07-23 08:20 | PM.PN ---
Subjective Subjective: Interval history: The patient is feeling okay. He had some breakfast this morning and also had bowel movements. Continues to remain afebrile. Abdominal pain is much improved. No chest pain or shortness of breath. Vital signs remained stable. No new symptoms. Medications: Reviewed: Yes Medication Review Details: Current Medications Acetaminophen (Acetaminophen 500 Mg Tablet) 500 mg PO BEDTIME PRN PRN Reason: Pain Amlodipine Besylate (Amlodipine 5 Mg Tablet) 5 mg PO DAILY [facility] Last Admin: 07/22/20 08:44 Dose: 5 mg Documented by: Atorvastatin Calcium (Atorvastatin 40 Mg Tablet) 80 mg PO DAILY [facility] Last Admin: 07/22/20 08:44 Dose: 80 mg Documented by: Cyanocobalamin (Cyanocobalamin 1,000 Mcg/Ml Sdv) 1,000 mcg IM DAILY [facility] Last Admin: 07/22/20 09:07 Dose: 1,000 mcg Documented by: Dextrose (Dextrose 50% Syringe 50 Ml) 25 ml IVP ONCE PRN; Protocol PRN Reason: hypoglycemia protocol Dextrose (Dextrose 50% Syringe 50 Ml) 50 ml IVP PRN PRN; Protocol PRN Reason: hypoglycemia protocol Enoxaparin Sodium (Enoxaparin 30 Mg/0.3 Ml Syringe) 30 mg SUBCUT Q24H [facility] Last Admin: 07/22/20 12:13 Dose: 30 mg Documented by: Glucagon (Glucagon 1 Mg/Ml Inj 1 Ml) 1 mg IM ONCE PRN; Protocol PRN Reason: Adult Acute Hypoglycemia Prot. Lactated Ringer's (Lactated Ringers) 1,000 mls @ 100 mls/hr IV .Q10H [facility] Last Admin: 07/22/20 21:44 Dose: 100 mls/hr Documented by: Ciprofloxacin/Dextrose (Cipro) 400 mg in 200 mls @ 200 mls/hr IV Q12H [facility]; Protocol Last Infusion: 07/22/20 23:00 Dose: Infused Documented by: Metronidazole (Flagyl Iv) 500 mg in 100 mls @ 100 mls/hr IV Q8H [facility]; Protocol Last Infusion: 07/23/20 01:00 Dose: Infused Documented by: Dextrose (D5w) 500 mls @ 100 mls/hr IV ONCE PRN; Protocol PRN Reason: Adult Acute Hypoglycemia Prot Insulin Aspart (Insulin Aspart 100 Unit/1 Ml) 0 unit SUBCUT WM&BEDTIME [facility]; Protocol Last Admin: 07/22/20 21:37 Dose: Not Given Documented by: Lactulose (Lactulose Oral Liq 20 Gm/30 Ml Udc) 10 gm PO DAILY PRN PRN Reason: CONSTIPA Losartan Potassium (Losartan 50 Mg Tablet) 100 mg PO DAILY [facility] Last Admin: 07/22/20 08:44 Dose: 100 mg Documented by: Morphine Sulfate (Morphine 4 Mg/Ml Sdv 1 Ml) 2 mg IVP Q4H PRN PRN Reason: SEVERE PAIN Naloxone HCl (Naloxone 0.4 Mg/Ml Sdv) 0.1 mg IVP Q2M PRN PRN Reason: OPIATERV Ondansetron HCl (Ondansetron 2 Mg/Ml Sdv 2 Ml) 4 mg IVP Q8H PRN PRN Reason: vomiting, or N/V if npo Pantoprazole Sodium (Pantoprazole 40 Mg Sdv) 40 mg IVP Q12H [facility] Last Admin: 07/23/20 00:56 Dose: 40 mg Documented by: Prasugrel (Prasugrel 10 Mg Tablet) 10 mg PO DAILY [facility] Last Admin: 07/22/20 09:06 Dose: 10 mg Documented by: Senna (Sennosides 8.6 Mg Tablet) 17.2 mg PO BEDTIME [facility] Last Admin: 07/22/20 21:42 Dose: 17.2 mg Documented by: Sertraline HCl (Sertraline 50 Mg Tablet) 50 mg PO DAILY [facility] Last Admin: 07/22/20 08:43 Dose: 50 mg Documented by: Vitamin D (Cholecalciferol (Vitamin D3) 1,000 Unit Tablet) 2,000 unit PO DAILY [facility] Last Admin: 07/22/20 08:44 Dose: 2,000 unit Documented by: Vitals/I&O/Wt Last Vital Signs Temp 98.5 F 07/23/20 07:21 Pulse 78 07/23/20 07:21 Resp 18 07/23/20 07:21 BP 130/67 07/23/20 07:21 Pulse Ox 92 07/23/20 07:21 07/22/20 07/23/20 07/23/20 22:59 06:59 14:59 Intake Total 1100 / 2383.333 420 / 2803.333 Output Total 200 / 825 600 / 1425 Balance 900 / 1558.333 -180 / 1378.333 Physical Exam Narrative: EXAM NARRATIVE: GENERAL: The patient is alert and oriented times three. Not in any acute distress. HEENT: No significant pallor, icterus or lymphadenopathy. T NECK: Trachea appears to be central. No masses noted. No JVD or thyromegaly appreciated. No carotid bruit. RESPIRATORY: Chest is symmetrical. No intercostals muscle retraction or any accessory muscle activation. There is no chest wall tenderness. Breath sounds are heard bilaterally. No rales or rhonchi heard. No evidence of any consolidation. BREASTS: Deferred. HEART: The PMI is in the 5th left intercostals space just inside the midclavicular line. No palpable precordial events. S1 and S2 are normal. No S3 or S4 heard. No pericardial rub or any click heard. Systolic murmur grade 3/6 in the mitral area. No diastolic murmurs. ABDOMEN: Right upper quadrant tenderness is almost gone. Seems better than yesterday. No organomegaly appreciated. : Deferred. RECTAL: Deferred. LYMPHATIC: No lymphadenopathy noted in the neck or groin. EXTREMITIES: No edema or cyanosis. No clubbing. Peripheral pulses . The dorsalis pedis and posterior tibial pulses are palpable but weak bilaterally MUSCULOSKELETAL: No acute joint deformities or swelling SKIN: There are no significant scars or skin rash noted. NEUROPSYCHIATRIC: The patient is alert and oriented x3. Appears to be in a good mood. The higher functions are grossly within normal limits. No tremors or rigidity noted. Data : 07/24/20 05:02 07/24/20 05:02 Micro: Microbiology 07/21/20 07:25 Blood Culture - Preliminary Blood NEGATIVE TO DATE A&P Assessment and plan (1) Atherosclerotic heart disease of [place] coronary artery without angina pectoris: Patient has no specific symptoms of coronary insufficiency at this time. He is on Effient. I discussed with Dr. Black regarding the urgency of surgery. According to Dr. Black If the patient is clinically improving with the current treatment, there may not be an urgency in doing the surgery. He would rather do it as an elective procedure at a later time, while being off the Effient for at least 7 days. if the patient can stay on the current dual antiplatelet agents for 6 months after the last PCI , it may be safe to take him off the Effient and do the surgery electively at that time. This was discussed in detail and is understood well. The EKG from 07/21/2020 was reviewed. It showed sinus rhythm with diffuse nonspecific ST-T changes. Features of LVH based on voltage criteria. Significant improvement of the ST depressions, compared to EKG from February of this year Since the patient is remaining stable with no new symptoms, he may not require any specific interventions at this point. Status: Chronic Qualifiers: [place] vs. transplanted heart: [place] heart Qualified Code(s): I25.10 - Atherosclerotic heart disease of [place] coronary artery without angina pectoris (2) Mitral regurgitation: The mitral dilatation was moderate by echocardiogram in February. Specific intervention at this point. We will continue the current measures. Status: Acute Qualifiers: Cardiac valve disease etiology: nonrheumatic Qualified Code(s): I34.0 - Nonrheumatic mitral (valve) insufficiency (3) Dyslipidemia: Patient may continue on the current medications, if the liver enzymes are staying in the normal range Status: Chronic (4) Benign essential HTN: The blood pressure is of stage II. We will continue to optimize the antihypertensive medications. Status: Chronic (5) Type 2 diabetes mellitus with hyperglycemia: We will continue to optimize the medications. 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 transplanted heart: [place] heart Mitral regurgitation I34.0 Cardiac valve disease etiology: nonrheumatic Dyslipidemia E78.5 Benign essential HTN I10 Type 2 diabetes mellitus with hyperglycemia E11.65; Z79.4 Diabetes mellitus manager intermediate insulin use: with manager intermediate use Acute cholecystitis K81.0
[2020-07-23] MEDS: lactated ringers 1,000 ML 100 ML IV ×2 (08:43→20:53)
[2020-07-23] MEDS: cholecalciferol (vitamin D3) 1,000 unit Tablet 2000 UNIT PO (08:45)
[2020-07-23] MEDS: metroNIDAZOLE IV 500 MG/100 ML PREMIX 100 MG IV ×3 (08:45→23:57)
[2020-07-23] MEDS: sertraline 50 mg Tablet PO (08:45)
[2020-07-23] MEDS: amlodipine 5 mg Tablet PO (08:46)
[2020-07-23] MEDS: cyanocobalamin 1,000 mcg/mL SDV 1000 MCG IM (08:46)
[2020-07-23] MEDS: losartan 50 mg Tablet 100 MG PO (08:46)
[2020-07-23] MEDS: atorvastatin 40 mg Tablet 80 MG PO (08:46)
--- NOTE | 2020-07-23 09:30 | P.PN_ITS ---
Subjective Subjective: Interval history: Patient reports feeling much better this morning. He did not require medication since yesterday and reports that his pain is 3 out of 10 this morning. Denies being nauseous. Tolerates clear liquid well. WBC improved and down to 16. Platelets slightly better. Kidney function is stable. Vitals are stable. Vitals/I&O/Wt Last Vital Signs Temp 98.5 F 07/23/20 07:21 Pulse 78 07/23/20 07:21 Resp 18 07/23/20 07:21 BP 130/67 07/23/20 08:46 Pulse Ox 92 07/23/20 07:21 07/22/20 07/23/20 07/23/20 22:59 06:59 14:59 Intake Total 1100 / 2383.333 420 / 2803.333 975 / 975 Output Total 200 / 825 600 / 1425 200 / 200 Balance 900 / 1558.333 -180 / 1378.333 775 / 775 Physical Exam Const: COMMON NORMALS: no acute distress and patient oriented x3 Resp: COMMON NORMALS: normal respiratory effort and clear to auscultation bilaterally AUSCULTATION: clear to auscultation bilaterally Cardio: COMMON NORMALS: regular rate, regular rhythm and S2 normal heart sound present RATE: regular rate RHYTHM: regular rhythm HEART SOUNDS: S2 normal heart sound present OTHER: No lower extremity edema GI: COMMON NORMALS: Normal to inspection, nondistended, normoactive bowel sounds present and Soft to palpation PALPATION: Yes Soft to palpation OTHER: Slightly tender at right upper quadrant. Neuro: COMMON NORMALS: patient oriented x3 and no focal motor deficits Data : 07/23/20 05:00 07/23/20 05:00 Micro: Microbiology 07/21/20 07:25 Blood Culture - Preliminary Blood NEGATIVE TO DATE A&P Assessment and plan (1) Acute cholecystitis: Status: Acute (2) Chronic kidney disease (CKD): Status: Acute Qualifiers: Chronic kidney disease stage: stage 3 (moderate) Qualified Code(s): N18.3 - Chronic kidney disease, stage 3 (moderate) (3) Type 2 diabetes mellitus with hyperglycemia: Status: Chronic Qualifiers: Diabetes mellitus termite control service representative insulin use: with termite control service representative use Qualified Code(s): E11.65 - Type 2 diabetes mellitus with hyperglycemia; Z79.4 - alf (current) use of insulin (4) Atherosclerotic heart disease of [place] coronary artery without angina pectoris: Status: Chronic Qualifiers: [place] vs. transplanted heart: [place] heart Qualified Code(s): I25.10 - Atherosclerotic heart disease of [place] coronary artery without angina pectoris (5) Dehydration with hyponatremia: Status: Acute Additional A&P Information PLAN: Decrease IV fluids to 75 mill per hour and advance diet to full liquid. Continue current antibiotics. Continue physical therapy. Anticipate patient will require several more days. Given patient's age and underlying medical problems I will have to make sure that he is completely asymptomatic before transitioning to oral antibiotic and considering discharge. Attestations Medical Necessity Statement*: Patient with acute cholecystitis requires close inpatient monitoring and treatment until deemed safe for discharge. Time Spent in Patient Care: 16 - 35 minutes Coding Level of Care Code Acute Vocational Examiner for Izzy Deleon Diagnoses Acute cholecystitis K81.0 Chronic kidney disease (CKD) N18.3 Chronic kidney disease stage: stage 3 (moderate) Type 2 diabetes mellitus with hyperglycemia E11.65; Z79.4 Diabetes mellitus termite control service representative insulin use: with termite control service representative use Atherosclerotic heart disease of [place] coronary artery without angina pectoris I25.10 [place] vs. transplanted heart: [place] heart Dehydration with hyponatremia E86.0; E87.1
--- NOTE | 2020-07-23 09:33 | PC.CHAP ---
Pastoral Care Encounter/Spiritual Assessment Type of Contact [] Declined manager category visit [] Patient/Family/Request visit [] Outpatient visit [x] Follow-up visit [] Physician referral [] Code/Alert [] Routine visit [] Staff referral [] Actively dying [] Patient sleeping [] Family support [] [] Out of room [] Palliative care [] [] Receiving care in room [] Pre-surgical visit [] Trauma [] Long length of stay [] ICU visit [] Other: Relational/Emotional Strength [] Patient feels connected with others/family/visitors/staff [] Distress [] Loneliness/isolation [] Abandonment Spirituality of Patient [] Person of Babita [] Attends Jainism of their Babita [] Believes in Prayer [] Reads Bible or Church materials [] There are Spiritual issues to be addressed Advertising Production Manager Interventions [x] Prayer [x] Active listening [x] Non-anxious presence [x] Spiritual/emotional support [] Crisis/trauma care [] Spiritual counseling [] Bereavement support [] Provided bereavement packet [] Provided Bible/devotional materials [] Provided toy/stuffed animal, coloring book to patient or family member [] Provided Communion [] Anointing/[place] [] Salvation [x] Completed spiritual assessment [] Other: Impact on Illness or Injury [] Angry [] Fearful [] Anxious [] Often cries [] Exhaustion [] Unable to work [] Unable to attend jew [] Unable to walk/stand [] Unable to read [] Unable to drive [] Unable to eat/drink [] Unable to sleep [] Unable to be with family [] Patient intubated [] Other: Summary patient setting up.. took self to restroom... big improvement.. excited about healing Time spent with patient 10 min
[2020-07-23] MEDS: prasugrel 10 MG Tablet PO (09:59)
[2020-07-23] MEDS: ciprofloxacin 400 MG/200 ML PREMIX 200 MG IV ×2 (09:59→22:13)
[2020-07-23 10:47] LABS: Glucose Point of Care 353 mg/dL (70-110)
[2020-07-23] MEDS: enoxaparin 30 mg/0.3 mL Syringe SUBCUT (11:30)
[2020-07-23 17:00] LABS: Glucose Point of Care 122 mg/dL (70-110)
[2020-07-23 20:42] LABS: Glucose Point of Care 150 mg/dL (70-110)
[2020-07-24] VITALS (9 sets, daily range): BP systolic 111–129; BP diastolic 53–73; PULSE 74–87; RESP 16–19; TEMP 36.8–37.9; O2SAT 91–94
[2020-07-24] MEDS: pantoprazole 40 mg SDV IVP ×2 (00:58→12:06)
--- NOTE | 2020-07-24 04:57 | PC.NURSE ---
SHIFT SUMMARY Rested well. Awake early this am. Up to bathroom for a loose BM then ambulated in chu with nurse and up to chair. Ambulates well. Says he likes to keep active. Is hoping WBC is better today and can go home but says is ok with staying as well. IV infusing at 75/hr rate. Continues to receive IV antibiotics
[2020-07-24 05:24] LABS: Basophils % 0.2 %; Eosinophils # 0.1 10^3/uL (0.0-0.8); Hemoglobin 12.6 g/dL (11.7-16.6); Lymphocytes # 1.6 10^3/uL (0.8-4.8); Lymphocytes % 10.7 %; Mean Corpuscular HGB Conc 31.5 g/dL (30.0-36.0); Mean Corpuscular Hemoglobin 29.7 pg (28.0-34.0); Mean Corpuscular Volume 94.3 fL (80-94); Mean Platelet Volume 11.5 fL (7.4-10.4); Monocytes % 6.5 %; Neutrophils # 11.81 10^3/uL (1.8-7.7); Neutrophils % 81.1 %; Nucleated Red Blood Cells % 0 %; Platelet Count 154 10^3/cmm (130-400); Red Blood Count 4.24 10^6/uL (4.1-5.3); Red Cell Distribution Width 13.6 % (12.1-15.1); White Blood Count 14.6 10^3/uL (4.0-10.0)
[2020-07-24 05:57] LABS: Alanine Aminotransferase 30 U/L (0-41); Alkaline Phosphatase 101 IU/L (40-130); Anion Gap 17.5 (5-19); Aspartate Amino Transferase 47 U/L (0-40); Blood Urea Nitrogen 34 mg/dL (8-23); Carbon Dioxide 21 mmol/L (22-29); Chloride 99 mmol/L (98-107); Globulin 3.4 g/dL (1.3-4.6); Glucose 171 mg/dL (65-115); Magnesium 2.2 mg/dL (1.7-2.3); Osmolality Calculated 290 mOsm/kg (285-295); Phosphorus 3.2 mg/dL (2.5-4.5); Potassium 3.5 mmol/L (3.5-5.1); Sodium 134 mmol/L (136-145); Total Bilirubin 0.6 mg/dL (0.15-1.2); Total Protein 6.4 g/dL (6.6-8.7)
--- NOTE | 2020-07-24 06:19 | P.PN_ITS ---
Subjective Subjective: Interval history: Patient overall feels better and had bouts of loose stools. Trending down and leukocytosis, continues to tolerate p.o. intake. Vitals/I&O/Wt Last Vital Signs Temp 98.7 F 07/24/20 04:00 Pulse 78 07/24/20 04:00 Resp 16 07/24/20 04:00 BP 111/53 07/24/20 04:00 Pulse Ox 91 07/24/20 04:00 07/23/20 07/23/20 07/24/20 14:59 22:59 06:59 Intake Total 1275 / 1275 900 / 2175 500 / 2675 Output Total 575 / 575 500 / 1075 500 / 1575 Balance 700 / 700 400 / 1100 0 / 1100 Physical Exam Narrative: EXAM NARRATIVE: Patient is conscious alert oriented X3 BMI 24 neck examination PERRLA no masses no cervical lymphadenopathy no jaundice Abdomen non-tender nondistended soft no organomegaly guarding or rigidity/no signs of peritonitis Data : 07/24/20 05:02 07/24/20 05:02 A&P Assessment and plan (1) Acute cholecystitis: 0625 Patient continues to respond well to conservative measures and trending down and leukocytosis is appreciated today. Can advance diet as tolerated cardiac/diabetic/low-fat If patient continues to do well can be discharged home on oral antibiotics for at least 10 days and follow-up with me as an outpatient. To discuss further interval cholecystectomy in 4 to 6 weeks after cardiac clearance. Encourage ambulation Assurance and education All questions have been answered and all concerns have been addressed to patient's satisfaction. Status: Acute Attestations Medical Necessity Statement*: Ongoing inpatient hospitalization for conservative measures for acute cholecystitis. Time Spent in Patient Care: (>than 50% of time spent in counselling and/or direct pt care on unit) . Coding Level of Care Code Acute General Service Officer for Izzy Deleon Diagnoses Acute cholecystitis K81.0
[2020-07-24 06:30] LABS: Glucose Point of Care 157 mg/dL (70-110)
[2020-07-24] MEDS: cholecalciferol (vitamin D3) 1,000 unit Tablet 2000 UNIT PO (08:47)
[2020-07-24] MEDS: sertraline 50 mg Tablet PO (08:47)
[2020-07-24] MEDS: atorvastatin 40 mg Tablet 80 MG PO (08:47)
[2020-07-24] MEDS: prasugrel 10 MG Tablet PO (08:47)
[2020-07-24] MEDS: amlodipine 5 mg Tablet PO (08:47)
[2020-07-24] MEDS: losartan 50 mg Tablet 100 MG PO (08:47)
[2020-07-24] MEDS: cyanocobalamin 1,000 mcg/mL SDV 1000 MCG IM (08:47)
[2020-07-24] MEDS: metroNIDAZOLE IV 500 MG/100 ML PREMIX 100 MG IV ×2 (08:48→15:51)
[2020-07-24] MEDS: lactated ringers 1,000 ML 100 ML IV (08:52)
--- NOTE | 2020-07-24 09:00 | P.PN_ITS ---
Subjective Subjective: Interval history: The patient is feeling better. He continues to have some discomfort in the right upper quadrant. Denies any nausea or vomiting. He had a diarrhea a few times this morning. No fever or chills. No cough. Medications: Reviewed: Yes Medication Review Details: Laboratory Last Values Current Medications Acetaminophen (Acetaminophen 500 Mg Tablet) 500 mg PO BEDTIME PRN PRN Reason: Pain Amlodipine Besylate (Amlodipine 5 Mg Tablet) 5 mg PO DAILY [facility] Last Admin: 07/24/20 08:47 Dose: 5 mg Documented by: Atorvastatin Calcium (Atorvastatin 40 Mg Tablet) 80 mg PO DAILY [facility] Last Admin: 07/24/20 08:47 Dose: 80 mg Documented by: Cyanocobalamin (Cyanocobalamin 1,000 Mcg/Ml Sdv) 1,000 mcg IM DAILY [facility] Last Admin: 07/24/20 08:47 Dose: 1,000 mcg Documented by: Dextrose (Dextrose 50% Syringe 50 Ml) 25 ml IVP ONCE PRN; Protocol PRN Reason: hypoglycemia protocol Dextrose (Dextrose 50% Syringe 50 Ml) 50 ml IVP PRN PRN; Protocol PRN Reason: hypoglycemia protocol Enoxaparin Sodium (Enoxaparin 30 Mg/0.3 Ml Syringe) 30 mg SUBCUT Q24H [facility] Last Admin: 07/23/20 11:30 Dose: 30 mg Documented by: Glucagon (Glucagon 1 Mg/Ml Inj 1 Ml) 1 mg IM ONCE PRN; Protocol PRN Reason: Adult Acute Hypoglycemia Prot. Lactated Ringer's (Lactated Ringers) 1,000 mls @ 75 mls/hr IV .[id number] [facility] Last Admin: 07/24/20 08:52 Dose: 100 mls/hr Documented by: Ciprofloxacin/Dextrose (Cipro) 400 mg in 200 mls @ 200 mls/hr IV Q12H TELLY; Protocol Last Infusion: 07/23/20 23:24 Dose: Infused Documented by: Metronidazole (Flagyl Iv) 500 mg in 100 mls @ 100 mls/hr IV Q8H [facility]; Protocol Last Admin: 07/24/20 08:48 Dose: 100 mls/hr Documented by: Dextrose (D5w) 500 mls @ 100 mls/hr IV ONCE PRN; Protocol PRN Reason: Adult Acute Hypoglycemia Prot Insulin Aspart (Insulin Aspart 100 Unit/1 Ml) 0 unit SUBCUT WM&BEDTIME [facility]; Protocol Last Admin: 07/24/20 08:48 Dose: 4 unit Documented by: Lactulose (Lactulose Oral Liq 20 Gm/30 Ml Udc) 10 gm PO DAILY PRN PRN Reason: CONSTIPA Losartan Potassium (Losartan 50 Mg Tablet) 100 mg PO DAILY [facility] Last Admin: 07/24/20 08:47 Dose: 100 mg Documented by: Morphine Sulfate (Morphine 4 Mg/Ml Sdv 1 Ml) 2 mg IVP Q4H PRN PRN Reason: SEVERE PAIN Naloxone HCl (Naloxone 0.4 Mg/Ml Sdv) 0.1 mg IVP Q2M PRN PRN Reason: OPIATERV Ondansetron HCl (Ondansetron 2 Mg/Ml Sdv 2 Ml) 4 mg IVP Q8H PRN PRN Reason: vomiting, or N/V if npo Pantoprazole Sodium (Pantoprazole 40 Mg Sdv) 40 mg IVP Q12H [facility] Last Admin: 07/24/20 00:58 Dose: 40 mg Documented by: Prasugrel (Prasugrel 10 Mg Tablet) 10 mg PO DAILY [facility] Last Admin: 07/24/20 08:47 Dose: 10 mg Documented by: Senna (Sennosides 8.6 Mg Tablet) 17.2 mg PO BEDTIME [facility] Last Admin: 07/23/20 20:55 Dose: Not Given Documented by: Sertraline HCl (Sertraline 50 Mg Tablet) 50 mg PO DAILY [facility] Last Admin: 07/24/20 08:47 Dose: 50 mg Documented by: Vitamin D (Cholecalciferol (Vitamin D3) 1,000 Unit Tablet) 2,000 unit PO DAILY [facility] Last Admin: 07/24/20 08:47 Dose: 2,000 unit Documented by: Vitals/I&O/Wt Last Vital Signs Temp 98.6 F 07/24/20 07:18 Pulse 79 07/24/20 07:18 Resp 16 07/24/20 07:18 BP 114/65 07/24/20 08:47 Pulse Ox 93 07/24/20 07:18 07/23/20 07/24/20 07/24/20 22:59 06:59 14:59 Intake Total 900 / 2175 1500 / 3675 Output Total 500 / 1075 500 / 1575 Balance 400 / 1100 1000 / 2100 Physical Exam Narrative: EXAM NARRATIVE: GENERAL: The patient is alert and oriented times three. Not in any acute distress. HEENT: No significant pallor, icterus or lymphadenopathy. NECK: Trachea appears to be central. No masses noted. No JVD or thyromegaly appreciated. No carotid bruit. RESPIRATORY: Chest is symmetrical. No intercostals muscle retraction or any accessory muscle activation. There is no chest wall tenderness. Breath sounds are heard bilaterally. No rales or rhonchi heard. No evidence of any consolidation. BREASTS: Deferred. HEART: The PMI is in the 5th left intercostals space just inside the midclavicular line. No palpable precordial events. S1 and S2 are normal. No S3 or S4 heard. No pericardial rub or any click heard. Systolic murmur grade 3/6 in the mitral area. No diastolic murmurs. ABDOMEN: Right upper quadrant tenderness is almost gone. Seems better than yesterday. No organomegaly appreciated. : Deferred. RECTAL: Deferred. LYMPHATIC: No lymphadenopathy noted in the neck or groin. EXTREMITIES: No edema or cyanosis. No clubbing. Peripheral pulses . The dorsalis pedis and posterior tibial pulses are palpable but weak bilaterally MUSCULOSKELETAL: No acute joint deformities or swelling SKIN: There are no significant scars or skin rash noted. NEUROPSYCHIATRIC: The patient is alert and oriented x3. Appears to be in a good mood. The higher functions are grossly within normal limits. No tremors or rigidity noted. Data : 07/24/20 05:02 07/24/20 05:02 Other Labs: Laboratory Last Values WBC 14.6 10^3/uL (4.0-10.0) H 07/24/20 05:02 RBC 4.24 10^6/uL (4.1-5.3) 07/24/20 05:02 Hgb 12.6 g/dL (11.7-16.6) 07/24/20 05:02 Hct 40.0 % (42.0-52.0) L 07/24/20 05:02 MCV 94.3 fL (80-94) H 07/24/20 05:02 MCH 29.7 pg (28.0-34.0) 07/24/20 05:02 MCHC 31.5 g/dL (30.0-36.0) 07/24/20 05:02 RDW 13.6 % (12.1-15.1) 07/24/20 05:02 Plt Count 154 10^3/cmm (130-400) 07/24/20 05:02 MPV 11.5 fL (7.4-10.4) H 07/24/20 05:02 Neut % (Auto) 81.1 % 07/24/20 05:02 Lymph % (Auto) 10.7 % 07/24/20 05:02 [place] % (Auto) 6.5 % 07/24/20 05:02 Eos % (Auto) 1.0 % 07/24/20 05:02 Baso % (Auto) 0.2 % 07/24/20 05:02 Neut # (Auto) 11.81 10^3/uL (1.8-7.7) H 07/24/20 05:02 Lymph # (Auto) 1.6 10^3/uL (0.8-4.8) 07/24/20 05:02 [place] # (Auto) 1.0 10^3/uL (0.2-0.9) H 07/24/20 05:02 Eos # (Auto) 0.1 10^3/uL (0.0-0.8) 07/24/20 05:02 Baso # (Auto) 0.0 10^3/uL (0.0-0.1) 07/24/20 05:02 Nucleated RBC % (auto) 0 % 07/24/20 05:02 Nucleated RBCs # 0.0 /100WBC 07/24/20 05:02 PT 15.50 SECONDS (12.1-14.9) H 07/21/20 06:48 INR 1.19 (0.8-1.2) 07/21/20 06:48 Sodium 134 mmol/L (136-145) L 07/24/20 05:02 Potassium 3.5 mmol/L (3.5-5.1) 07/24/20 05:02 Chloride 99 mmol/L (98-107) 07/24/20 05:02 Carbon Dioxide 21 mmol/L (22-29) L 07/24/20 05:02 Anion Gap 17.5 (5-19) 07/24/20 05:02 BUN 34 mg/dL (8-23) H 07/24/20 05:02 Creatinine 1.3 mg/dL (0.7-1.2) H 07/24/20 05:02 GFR Calculation Not Reportable 07/24/20 05:02 Glucose 171 mg/dL (65-115) H 07/24/20 05:02 POC Glucose 157 mg/dL (70-110) 07/24/20 06:18 Calculated Osmolality 290 mOsm/kg (285-295) 07/24/20 05:02 Lactic Acid 2.0 mmol/L (0.5-2.2) 07/21/20 06:48 Calcium 9.0 mg/dL (8.5-10.5) 07/24/20 05:02 Phosphorus 3.2 mg/dL (2.5-4.5) 07/24/20 05:02 Magnesium 2.2 mg/dL (1.7-2.3) 07/24/20 05:02 Total Bilirubin 0.6 mg/dL (0.15-1.2) 07/24/20 05:02 AST 47 U/L (0-40) H 07/24/20 05:02 ALT 30 U/L (0-41) 07/24/20 05:02 Alkaline Phosphatase 101 IU/L (40-130) 07/24/20 05:02 Troponin T Gen 5 ng/L 26 ng/L (0-15) H 07/21/20 06:48 Total Protein 6.4 g/dL (6.6-8.7) L 07/24/20 05:02 Albumin 3.0 g/dL (3.5-5.2) L 07/24/20 05:02 Globulin 3.4 g/dL (1.3-4.6) 07/24/20 05:02 Lipase 15 U/L (13-60) 07/21/20 06:48 A&P Assessment and plan (1) Atherosclerotic heart disease of [place] coronary artery without angina pectoris: Clinically seems to be stable. No recurrent specific intervention at this point. Status: Chronic Qualifiers: [place] vs. transplanted heart: [place] heart Qualified Code(s): I25.10 - Atherosclerotic heart disease of [place] coronary artery without angina pectoris (2) Mitral regurgitation: The mitral dilatation was moderate by echocardiogram in February. Specific intervention at this point. We will continue the current measures. Status: Acute Qualifiers: Cardiac valve disease etiology: nonrheumatic Qualified Code(s): I34.0 - Nonrheumatic mitral (valve) insufficiency (3) Dyslipidemia: Patient may continue on the current medications, if the liver enzymes are staying in the normal range Status: Chronic (4) Benign essential HTN: Her blood pressure is in the normal range. We will continue on the current medications. Status: Chronic (5) Type 2 diabetes mellitus with hyperglycemia: We will continue to optimize the medications. Status: Chronic (6) Acute cholecystitis: Management as per the primary. Seems to be improving. It was decided not to put the drain Status: Acute Additional A&P Information Other problems are Renal insufficiency Leukocytosis, trending down, secondary to the infection Attestations Medical Necessity Statement*: Disposition as per the primary Coding Level of Care Code Acute Ballaster for [facility] Fwd Diagnoses Atherosclerotic heart disease of [place] coronary artery without angina pectoris I25.10 [place] vs. transplanted heart: [place] heart Mitral regurgitation I34.0 Cardiac valve disease etiology: nonrheumatic Dyslipidemia E78.5 Benign essential HTN I10 Type 2 diabetes mellitus with hyperglycemia E11.65 Acute cholecystitis K81.0
--- NOTE | 2020-07-24 09:39 | PC.NURSE ---
notified Dr Trevino that patient has diarrhea and light black stool.
--- NOTE | 2020-07-24 09:50 | PC.NURSE ---
stool specimen sent to lab for processing.
[2020-07-24] MEDS: ciprofloxacin 400 MG/200 ML PREMIX 200 MG IV ×2 (11:03→21:07)
--- NOTE | 2020-07-24 11:40 | PC.SOCIAL ---
IMM Page 2 of [facility] explained to and signed by patient. Provided him with [employer]'s phone number. Initialed, dated, and timed and placed in chart. Copy provided to patient.
[2020-07-24] MEDS: enoxaparin 30 mg/0.3 mL Syringe SUBCUT (12:06)
[2020-07-24 12:08] LABS: Glucose Point of Care 254 mg/dL (70-110)
--- NOTE | 2020-07-24 14:18 | P.PN_ITS ---
Subjective Subjective: Interval history: Reports feeling slightly better. Continues to have right upper quadrant abdominal pain which she rates 3 out of 10. His diet was advanced to regular this morning and he ate third of his breakfast. Reports that he just does not have appetite but otherwise denies nausea. Denies shortness of breath or chest pain. Appears to be doing well with physical therapy. He developed diarrhea today. Vitals/I&O/Wt Last Vital Signs Temp 98.8 F 07/24/20 12:00 Pulse 80 07/24/20 12:00 Resp 16 07/24/20 12:00 BP 116/64 07/24/20 12:00 Pulse Ox 94 07/24/20 12:00 07/23/20 07/24/20 07/24/20 22:59 06:59 14:59 Intake Total 900 / 2175 1500 / 3675 360 / 360 Output Total 500 / 1075 500 / 1575 375 / 375 Balance 400 / 1100 1000 / 2100 -15 / -15 Physical Exam Const: COMMON NORMALS: no acute distress and patient oriented x3 Resp: COMMON NORMALS: normal respiratory effort and clear to auscultation bilaterally AUSCULTATION: clear to auscultation bilaterally Cardio: COMMON NORMALS: regular rate, regular rhythm and S2 normal heart sound present RATE: regular rate RHYTHM: regular rhythm HEART SOUNDS: S2 normal heart sound present OTHER: No lower extremity edema GI: COMMON NORMALS: Normal to inspection, nondistended, normoactive bowel sounds present and Soft to palpation PALPATION: Yes Soft to palpation OTHER: Right upper quadrant/epigastric area pain on deep palpation. Neuro: COMMON NORMALS: patient oriented x3 and no focal motor deficits Data : 07/24/20 05:02 07/24/20 05:02 Micro: Microbiology 07/24/20 09:49 C.difficile Toxin B Gene (PCR) - Final Stool Routine Collection Occult Blood (FIT) - Final A&P Assessment and plan (1) Acute cholecystitis: Status: Acute (2) Chronic kidney disease (CKD): Status: Acute Qualifiers: Chronic kidney disease stage: stage 3 (moderate) Qualified Code(s): N18.3 - Chronic kidney disease, stage 3 (moderate) (3) Type 2 diabetes mellitus with hyperglycemia: Status: Chronic (4) Atherosclerotic heart disease of [place] coronary artery without angina pectoris: Status: Chronic Qualifiers: [place] vs. transplanted heart: [place] heart Qualified Code(s): I25.10 - Atherosclerotic heart disease of [place] coronary artery without angina pectoris (5) Dehydration with hyponatremia: Status: Acute Additional A&P Information PLAN: Decrease IV fluids to 50 mL/h. Encouraged oral intake. Check stool for C. difficile infection and fecal occult blood test. Continue current antibiotics and physical therapy. Attestations Medical Necessity Statement*: Elderly male with acute cholecystitis failing outpatient therapy and unfortunately high risk for surgical intervention requires close inpatient monitoring and treatment. Time Spent in Patient Care: 16 - 35 minutes Coding Level of Care Code Acute Zipper Setter Lockstitch for [facility] Fwd Diagnoses Acute cholecystitis K81.0 Chronic kidney disease (CKD) N18.3 Chronic kidney disease stage: stage 3 (moderate) Type 2 diabetes mellitus with hyperglycemia E11.65 Atherosclerotic heart disease of [place] coronary artery without angina pectoris I25.10 [place] vs. transplanted heart: [place] heart Dehydration with hyponatremia E86.0; E87.1
[2020-07-24 17:06] LABS: Glucose Point of Care 213 mg/dL (70-110)
[2020-07-24] MEDS: morphine 4 mg/mL SDV 1 mL 2 MG IVP (19:22)
[2020-07-24 20:33] LABS: Glucose Point of Care 220 mg/dL (70-110)
[2020-07-25] MEDS: metroNIDAZOLE IV 500 MG/100 ML PREMIX 100 MG IV ×3 (00:04→16:31)
[2020-07-25] MEDS: pantoprazole 40 mg SDV IVP ×2 (00:33→12:35)
[2020-07-25 05:04] VITALS: BP 136/66; PULSE 91; RESP 18; TEMP 36.7; O2SAT 91
--- NOTE | 2020-07-25 06:02 | PC.NURSE ---
SHIFT SUMMARY Has rested well. Continues to have pain & tenderness to upper abdomen primarily RUQ. Took a dose of IV Morphine last evening with good relief. Said it made him sleepy. Says diet yesterday caused him to feel a little nauseous but had no vomiting. Had some diarrhea again yesterday but none tonight. Voiding per urinal. IV infusing without difficulty
[2020-07-25 06:41] LABS: Glucose Point of Care 200 mg/dL (70-110)
[2020-07-25 07:26] VITALS: BP 124/63; PULSE 81; RESP 17; TEMP 37.2; O2SAT 94
[2020-07-25 09:16] VITALS: BP 124/63
[2020-07-25] MEDS: losartan 50 mg Tablet 100 MG PO (09:16)
[2020-07-25] MEDS: cholecalciferol (vitamin D3) 1,000 unit Tablet 2000 UNIT PO (09:16)
[2020-07-25] MEDS: prasugrel 10 MG Tablet PO (09:17)
[2020-07-25] MEDS: atorvastatin 40 mg Tablet 80 MG PO (09:17)
[2020-07-25] MEDS: amlodipine 5 mg Tablet PO (09:17)
[2020-07-25] MEDS: cyanocobalamin 1,000 mcg/mL SDV 1000 MCG IM (09:17)
[2020-07-25] MEDS: sertraline 50 mg Tablet PO (09:17)
--- NOTE | 2020-07-25 09:42 | P.PN_ITS ---
Subjective Subjective: Interval history: The patient is feeling better. He still has some discomfort in the right upper quadrant. Seems to be tolerating the food. No fever or chills. No chest pain. He has significant shortness of breath with activities. Medications: Reviewed: Yes Medication Review Details: Current Medications Acetaminophen (Acetaminophen 500 Mg Tablet) 500 mg PO BEDTIME PRN PRN Reason: Pain Amlodipine Besylate (Amlodipine 5 Mg Tablet) 5 mg PO DAILY [facility] Last Admin: 07/25/20 09:17 Dose: 5 mg Documented by: Atorvastatin Calcium (Atorvastatin 40 Mg Tablet) 80 mg PO DAILY [facility] Last Admin: 07/25/20 09:17 Dose: 80 mg Documented by: Cyanocobalamin (Cyanocobalamin 1,000 Mcg/Ml Sdv) 1,000 mcg IM DAILY [facility] Last Admin: 07/25/20 09:17 Dose: 1,000 mcg Documented by: Dextrose (Dextrose 50% Syringe 50 Ml) 25 ml IVP ONCE PRN; Protocol PRN Reason: hypoglycemia protocol Dextrose (Dextrose 50% Syringe 50 Ml) 50 ml IVP PRN PRN; Protocol PRN Reason: hypoglycemia protocol Enoxaparin Sodium (Enoxaparin 30 Mg/0.3 Ml Syringe) 30 mg SUBCUT Q24H [facility] Last Admin: 07/24/20 12:06 Dose: 30 mg Documented by: Glucagon (Glucagon 1 Mg/Ml Inj 1 Ml) 1 mg IM ONCE PRN; Protocol PRN Reason: Adult Acute Hypoglycemia Prot. Lactated Ringer's (Lactated Ringers) 1,000 mls @ 50 mls/hr IV .Q20H [facility] Last Admin: 07/24/20 08:52 Dose: 100 mls/hr Documented by: Ciprofloxacin/Dextrose (Cipro) 400 mg in 200 mls @ 200 mls/hr IV Q12H [facility]; Protocol Last Infusion: 07/24/20 22:31 Dose: Infused Documented by: Metronidazole (Flagyl Iv) 500 mg in 100 mls @ 100 mls/hr IV Q8H [facility]; Protocol Last Admin: 07/25/20 09:15 Dose: 100 mls/hr Documented by: Dextrose (D5w) 500 mls @ 100 mls/hr IV ONCE PRN; Protocol PRN Reason: Adult Acute Hypoglycemia Prot Insulin Aspart (Insulin Aspart 100 Unit/1 Ml) 0 unit SUBCUT WM&BEDTIME [facility]; Protocol Last Admin: 07/25/20 09:15 Dose: 6 unit Documented by: Lactulose (Lactulose Oral Liq 20 Gm/30 Ml Udc) 10 gm PO DAILY PRN PRN Reason: CONSTIPA Losartan Potassium (Losartan 50 Mg Tablet) 100 mg PO DAILY [facility] Last Admin: 07/25/20 09:16 Dose: 100 mg Documented by: Morphine Sulfate (Morphine 4 Mg/Ml Sdv 1 Ml) 2 mg IVP Q4H PRN PRN Reason: SEVERE PAIN Last Admin: 07/24/20 19:22 Dose: 2 mg Documented by: Naloxone HCl (Naloxone 0.4 Mg/Ml Sdv) 0.1 mg IVP Q2M PRN PRN Reason: OPIATERV Ondansetron HCl (Ondansetron 2 Mg/Ml Sdv 2 Ml) 4 mg IVP Q8H PRN PRN Reason: vomiting, or N/V if npo Pantoprazole Sodium (Pantoprazole 40 Mg Sdv) 40 mg IVP Q12H [facility] Last Admin: 07/25/20 00:33 Dose: 40 mg Documented by: Prasugrel (Prasugrel 10 Mg Tablet) 10 mg PO DAILY [facility] Last Admin: 07/25/20 09:17 Dose: 10 mg Documented by: Senna (Sennosides 8.6 Mg Tablet) 17.2 mg PO BEDTIME [facility] Last Admin: 07/24/20 21:02 Dose: Not Given Documented by: Sertraline HCl (Sertraline 50 Mg Tablet) 50 mg PO DAILY [facility] Last Admin: 07/25/20 09:17 Dose: 50 mg Documented by: Vitamin D (Cholecalciferol (Vitamin D3) 1,000 Unit Tablet) 2,000 unit PO DAILY [facility] Last Admin: 07/25/20 09:16 Dose: 2,000 unit Documented by: Vitals/I&O/Wt Last Vital Signs Temp 99.0 F 07/25/20 07:26 Pulse 81 07/25/20 07:26 Resp 17 07/25/20 07:26 BP 124/63 07/25/20 09:16 Pulse Ox 94 07/25/20 07:26 07/24/20 07/25/20 07/25/20 22:59 06:59 14:59 Intake Total 420 / 1080 250 / 1330 250 / 250 Output Total 200 / 575 550 / 1125 100 / 100 Balance 220 / 505 -300 / 205 150 / 150 Physical Exam Narrative: EXAM NARRATIVE: GENERAL: The patient is alert and oriented times three. Not in any acute distress. HEENT: No significant pallor, icterus or lymphadenopathy. NECK: Trachea appears to be central. No masses noted. No JVD or thyromegaly appreciated. No carotid bruit. RESPIRATORY: Chest is symmetrical. No intercostals muscle retraction or any accessory muscle activation. There is no chest wall tenderness. Breath sounds are heard bilaterally. No rales or rhonchi heard. No evidence of any consolidation. Expiratory wheezing in the upper chest area BREASTS: Deferred. HEART: The PMI is in the 5th left intercostals space just inside the midclavicular line. No palpable precordial events. S1 and S2 are normal. No S3 or S4 heard. No pericardial rub or any click heard. Systolic murmur grade 3/6 in the mitral area. No diastolic murmurs. ABDOMEN: Right upper quadrant tenderness is almost gone. Seems better than yesterday. No organomegaly appreciated. : Deferred. RECTAL: Deferred. LYMPHATIC: No lymphadenopathy noted in the neck or groin. EXTREMITIES: No edema or cyanosis. No clubbing. Peripheral pulses . The dorsalis pedis and posterior tibial pulses are palpable but weak bilaterally MUSCULOSKELETAL: No acute joint deformities or swelling SKIN: There are no significant scars or skin rash noted. NEUROPSYCHIATRIC: The patient is alert and oriented x3. Appears to be in a good mood. The higher functions are grossly within normal limits. No tremors or rigidity noted. Data : 07/25/20 11:54 07/25/20 11:54 Micro: Microbiology 07/24/20 09:49 C.difficile Toxin B Gene (PCR) - Final Stool Routine Collection Occult Blood (FIT) - Final Laboratory Last Values WBC 14.6 10^3/uL (4.0-10.0) H 07/24/20 05:02 RBC 4.24 10^6/uL (4.1-5.3) 07/24/20 05:02 Hgb 12.6 g/dL (11.7-16.6) 07/24/20 05:02 Hct 40.0 % (42.0-52.0) L 07/24/20 05:02 MCV 94.3 fL (80-94) H 07/24/20 05:02 MCH 29.7 pg (28.0-34.0) 07/24/20 05:02 MCHC 31.5 g/dL (30.0-36.0) 07/24/20 05:02 RDW 13.6 % (12.1-15.1) 07/24/20 05:02 Plt Count 154 10^3/cmm (130-400) 07/24/20 05:02 MPV 11.5 fL (7.4-10.4) H 07/24/20 05:02 Neut % (Auto) 81.1 % 07/24/20 05:02 Lymph % (Auto) 10.7 % 07/24/20 05:02 Lipscomb % (Auto) 6.5 % 07/24/20 05:02 Eos % (Auto) 1.0 % 07/24/20 05:02 Baso % (Auto) 0.2 % 07/24/20 05:02 Neut # (Auto) 11.81 10^3/uL (1.8-7.7) H 07/24/20 05:02 Lymph # (Auto) 1.6 10^3/uL (0.8-4.8) 07/24/20 05:02 Lipscomb # (Auto) 1.0 10^3/uL (0.2-0.9) H 07/24/20 05:02 Eos # (Auto) 0.1 10^3/uL (0.0-0.8) 07/24/20 05:02 Baso # (Auto) 0.0 10^3/uL (0.0-0.1) 07/24/20 05:02 Nucleated RBC % (auto) 0 % 07/24/20 05:02 Nucleated RBCs # 0.0 /100WBC 07/24/20 05:02 PT 15.50 SECONDS (12.1-14.9) H 07/21/20 06:48 INR 1.19 (0.8-1.2) 07/21/20 06:48 Sodium 134 mmol/L (136-145) L 07/24/20 05:02 Potassium 3.5 mmol/L (3.5-5.1) 07/24/20 05:02 Chloride 99 mmol/L (98-107) 07/24/20 05:02 Carbon Dioxide 21 mmol/L (22-29) L 07/24/20 05:02 Anion Gap 17.5 (5-19) 07/24/20 05:02 BUN 34 mg/dL (8-23) H 07/24/20 05:02 Creatinine 1.3 mg/dL (0.7-1.2) H 07/24/20 05:02 GFR Calculation Not Reportable 07/24/20 05:02 Glucose 171 mg/dL (65-115) H 07/24/20 05:02 POC Glucose 200 mg/dL (70-110) 07/25/20 06:06 Calculated Osmolality 290 mOsm/kg (285-295) 07/24/20 05:02 Lactic Acid 2.0 mmol/L (0.5-2.2) 07/21/20 06:48 Calcium 9.0 mg/dL (8.5-10.5) 07/24/20 05:02 Phosphorus 3.2 mg/dL (2.5-4.5) 07/24/20 05:02 Magnesium 2.2 mg/dL (1.7-2.3) 07/24/20 05:02 Total Bilirubin 0.6 mg/dL (0.15-1.2) 07/24/20 05:02 AST 47 U/L (0-40) H 07/24/20 05:02 ALT 30 U/L (0-41) 07/24/20 05:02 Alkaline Phosphatase 101 IU/L (40-130) 07/24/20 05:02 Troponin T Gen 5 ng/L 26 ng/L (0-15) H 07/21/20 06:48 Total Protein 6.4 g/dL (6.6-8.7) L 07/24/20 05:02 Albumin 3.0 g/dL (3.5-5.2) L 07/24/20 05:02 Globulin 3.4 g/dL (1.3-4.6) 07/24/20 05:02 Lipase 15 U/L (13-60) 07/21/20 06:48 A&P Assessment and plan (1) SOB (shortness of breath): The etiology is not clear. Seems to have some wheezing. Could not do a BMP and BNP today. Status: Acute (2) Atherosclerotic heart disease of [place] coronary artery without angina pectoris: Clinically seems to be stable. No recurrent specific intervention at this point. Status: Chronic Qualifiers: [place] vs. transplanted heart: [place] heart Qualified Code(s): I25.10 - Atherosclerotic heart disease of [place] coronary artery without angina pectoris (3) Mitral regurgitation: The mitral dilatation was moderate by echocardiogram in February. Specific intervention at this point. We will continue the current measures. Status: Acute Qualifiers: Cardiac valve disease etiology: nonrheumatic Qualified Code(s): I34.0 - Nonrheumatic mitral (valve) insufficiency (4) Dyslipidemia: Patient may continue on the current medications, if the liver enzymes are staying in the normal range Status: Chronic (5) Benign essential HTN: Currently the blood pressure is in the normal range. May continue on the current medications. Status: Chronic (6) Type 2 diabetes mellitus with hyperglycemia: We will continue to optimize the medications. Status: Chronic Qualifiers: Diabetes mellitus care home insulin use: without junior graphic designer use Qualified Code(s): E11.65 - Type 2 diabetes mellitus with hyperglycemia (7) Acute cholecystitis: Management as per the primary. Seems to be improving. The CBC is returning to the baseline. Status: Acute Additional A&P Information Other problems are Renal insufficiency Leukocytosis, trending down. 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 transplanted heart: [place] heart Mitral regurgitation I34.0 Cardiac valve disease etiology: nonrheumatic Dyslipidemia E78.5 Benign essential HTN I10 Type 2 diabetes mellitus with hyperglycemia E11.65 Diabetes mellitus care home insulin use: without junior graphic designer use Acute cholecystitis K81.0
--- NOTE | 2020-07-25 10:51 | P.PN_ITS ---
Subjective Subjective: Interval history: Patient reports further improving. Reports that his epigastric area discomfort is completely gone and he only has 2-1/2 out of 10 pain of the right upper quadrant. He denies shortness of breath or chest pain. He has lab holiday this morning Vitals/I&O/Wt Last Vital Signs Temp 99.0 F 07/25/20 07:26 Pulse 81 07/25/20 07:26 Resp 17 07/25/20 07:26 BP 124/63 07/25/20 09:16 Pulse Ox 94 07/25/20 07:26 07/24/20 07/25/20 07/25/20 22:59 06:59 14:59 Intake Total 420 / 1080 250 / 1330 250 / 250 Output Total 200 / 575 550 / 1125 350 / 350 Balance 220 / 505 -300 / 205 -100 / -100 Physical Exam Const: COMMON NORMALS: no acute distress and patient oriented x3 Resp: COMMON NORMALS: normal respiratory effort and clear to auscultation bilaterally AUSCULTATION: clear to auscultation bilaterally Cardio: COMMON NORMALS: regular rate, regular rhythm and S2 normal heart sound present RATE: regular rate RHYTHM: regular rhythm HEART SOUNDS: S2 normal heart sound present OTHER: No lower extremity edema GI: COMMON NORMALS: Normal to inspection, nondistended, normoactive bowel sounds present and Soft to palpation PALPATION: Yes Soft to palpation OTHER: Minimally tender at right upper quadrant. Neuro: COMMON NORMALS: patient oriented x3 and no focal motor deficits Data : 07/24/20 05:02 07/24/20 05:02 Micro: Microbiology 07/24/20 09:49 C.difficile Toxin B Gene (PCR) - Final Stool Routine Collection Occult Blood (FIT) - Final A&P Assessment and plan (1) Acute cholecystitis: Status: Acute (2) Chronic kidney disease (CKD): Status: Acute Qualifiers: Chronic kidney disease stage: stage 3 (moderate) Qualified Code(s): N18.3 - Chronic kidney disease, stage 3 (moderate) (3) Type 2 diabetes mellitus with hyperglycemia: Status: Chronic (4) Atherosclerotic heart disease of [place] coronary artery without angina pectoris: Status: Chronic Qualifiers: [place] vs. transplanted heart: [place] heart Qualified Code(s): I25.10 - Atherosclerotic heart disease of [place] coronary artery without angina pectoris (5) Dehydration with hyponatremia: Status: Acute Additional A&P Information PLAN: We will stop IV fluids as patient's oral intake improved. Continue with physical therapy Repeat labs in a.m. and if further improves will consider discharging home in a day or 2. Attestations Medical Necessity Statement*: Patient with acute cholecystitis failing outpatient therapy requires close inpatient monitoring and treatment until deemed safe for discharge. Coding Level of Care Code Acute Food Dehydrator Operator for [facility]ne Diagnoses Acute cholecystitis K81.0 Chronic kidney disease (CKD) N18.3 Chronic kidney disease stage: stage 3 (moderate) Type 2 diabetes mellitus with hyperglycemia E11.65 Atherosclerotic heart disease of [place] coronary artery without angina pectoris I25.10 [place] vs. transplanted heart: [place] heart Dehydration with hyponatremia E86.0; E87.1
[2020-07-25 11:01] LABS: Glucose Point of Care 268 mg/dL (70-110)
[2020-07-25] MEDS: ciprofloxacin 400 MG/200 ML PREMIX 200 MG IV ×2 (11:03→21:57)
[2020-07-25 11:58] VITALS: BP 110/61; PULSE 79; RESP 18; TEMP 37.2; O2SAT 96
[2020-07-25] MEDS: enoxaparin 30 mg/0.3 mL Syringe SUBCUT (12:16)
[2020-07-25 12:29] LABS: Alanine Aminotransferase 27 U/L (0-41); Albumin Level 2.4 g/dL (3.5-5.2); Alkaline Phosphatase 100 IU/L (40-130); Aspartate Amino Transferase 63 U/L (0-40); Blood Urea Nitrogen 29 mg/dL (8-23); Calcium 8.4 mg/dL (8.5-10.5); Carbon Dioxide 20 mmol/L (22-29); Chloride 97 mmol/L (98-107); Globulin 3.3 g/dL (1.3-4.6); Glucose 283 mg/dL (65-115); Osmolality Calculated 286 mOsm/kg (285-295); Sodium 130 mmol/L (136-145); Total Bilirubin 0.4 mg/dL (0.15-1.2); Total Protein 5.7 g/dL (6.6-8.7)
[2020-07-25 12:37] LABS: Anion Gap 16.5 (5-19); Potassium 3.5 mmol/L (3.5-5.1)
[2020-07-25 13:49] LABS: Basophils % 0.2 %; Eosinophils # 0.1 10^3/uL (0.0-0.8); Eosinophils % 0.4 %; Hematocrit 39.5 % (42.0-52.0); Hemoglobin 12.1 g/dL (11.7-16.6); Lymphocytes % 6.9 %; Mean Corpuscular HGB Conc 30.6 g/dL (30.0-36.0); Mean Corpuscular Hemoglobin 30.6 pg (28.0-34.0); Mean Corpuscular Volume 99.7 fL (80-94); Mean Platelet Volume 11.6 fL (7.4-10.4); Monocytes # 1.1 10^3/uL (0.2-0.9); Monocytes % 7.9 %; Neutrophils # 11.62 10^3/uL (1.8-7.7); Nucleated Red Blood Cells % 0 %; Platelet Count 122 10^3/cmm (130-400); Red Blood Count 3.96 10^6/uL (4.1-5.3); Red Cell Distribution Width 13.8 % (12.1-15.1); White Blood Count 13.9 10^3/uL (4.0-10.0)
[2020-07-25 15:13] VITALS: BP 120/58; PULSE 84; RESP 18; TEMP 37.5; O2SAT 96
[2020-07-25 17:12] LABS: Slide Review Slide Review Perform
[2020-07-25 17:34] LABS: Glucose Point of Care 189 mg/dL (70-110)
[2020-07-25 19:29] LABS: NT Pro B Type Natriuretic Pept 2045 pg/mL (0-450)
[2020-07-25 20:00] VITALS: BP 110/64; PULSE 86; RESP 16; TEMP 37.3; O2SAT 98
[2020-07-25 21:31] LABS: Glucose Point of Care 209 mg/dL (70-110)
[2020-07-25] MEDS: sennosides 8.6 mg Tablet 17.2 MG PO (21:55)
[2020-07-26] VITALS (7 sets, daily range): BP systolic 117–135; BP diastolic 62–76; PULSE 79–88; RESP 18; TEMP 37–37.4; O2SAT 93–99
[2020-07-26] MEDS: metroNIDAZOLE IV 500 MG/100 ML PREMIX 100 MG IV ×3 (00:38→15:48)
[2020-07-26] MEDS: pantoprazole 40 mg SDV IVP ×2 (00:39→11:39)
--- NOTE | 2020-07-26 01:34 | PC.NURSE ---
Medication not given. Upon entering the room approx 2130pm to hang patient reanna, I noticed his 1630 flagyl wasn't administered and pump was off. ASHLIE Mckeonsupercharger repair supervisor nurse notified. Midnight flagyl given as scheduled.
[2020-07-26 05:19] LABS: Basophils % 0.3 %; Eosinophils # 0.1 10^3/uL (0.0-0.8); Eosinophils % 0.8 %; Hematocrit 35.8 % (42.0-52.0); Hemoglobin 11.4 g/dL (11.7-16.6); Lymphocytes # 1.4 10^3/uL (0.8-4.8); Lymphocytes % 9.6 %; Mean Corpuscular HGB Conc 31.8 g/dL (30.0-36.0); Mean Corpuscular Hemoglobin 29.7 pg (28.0-34.0); Mean Corpuscular Volume 93.2 fL (80-94); Mean Platelet Volume 11.6 fL (7.4-10.4); Monocytes % 7.2 %; Neutrophils # 11.76 10^3/uL (1.8-7.7); Neutrophils % 81.2 %; Nucleated Red Blood Cells % 0 %; Platelet Count 144 10^3/cmm (130-400); Red Blood Count 3.84 10^6/uL (4.1-5.3); Red Cell Distribution Width 13.8 % (12.1-15.1); White Blood Count 14.5 10^3/uL (4.0-10.0)
--- NOTE | 2020-07-26 05:29 | PC.NURSE ---
Shift summary Patient is a very pleasant 80 year old male. He slept well throughout the night. He had some pain early in the shift and morphine was given. Pain subsided. He has a low grade temp 99.1 at 0000 and 0400 vitals. Patient stated he felt fine. Will relay to day shift.
[2020-07-26 06:00] LABS: Alanine Aminotransferase 26 U/L (0-41); Albumin Level 2.6 g/dL (3.5-5.2); Alkaline Phosphatase 109 IU/L (40-130); Anion Gap 15.3 (5-19); Aspartate Amino Transferase 66 U/L (0-40); Blood Urea Nitrogen 24 mg/dL (8-23); Carbon Dioxide 21 mmol/L (22-29); Chloride 99 mmol/L (98-107); Globulin 2.9 g/dL (1.3-4.6); Glucose 202 mg/dL (65-115); Osmolality Calculated 284 mOsm/kg (285-295); Potassium 3.3 mmol/L (3.5-5.1); Sodium 132 mmol/L (136-145); Total Bilirubin 0.3 mg/dL (0.15-1.2); Total Protein 5.5 g/dL (6.6-8.7)
[2020-07-26 06:34] LABS: Calcium 8.5 mg/dL (8.5-10.5)
[2020-07-26 07:27] LABS: Glucose Point of Care 208 mg/dL (70-110)
--- NOTE | 2020-07-26 08:25 | P.PN_ITS ---
Subjective Subjective: Interval history: Patient reports that his abdominal pain further improved. Reports that applying pressure to right upper quadrant causes him to have pain 2 out of 10 but otherwise he is pain-free. Denies shortness of breath or chest pain. Reports doing well with physical therapy. Awaiting morning labs. Vitals/I&O/Wt Last Vital Signs Temp 99.1 F 07/26/20 07:33 Pulse 85 07/26/20 07:33 Resp 18 07/26/20 07:33 BP 135/66 07/26/20 07:33 Pulse Ox 99 07/26/20 07:33 07/25/20 07/26/20 07/26/20 22:59 06:59 14:59 Intake Total 100 / 1130 Output Total 300 / 650 500 / 1150 300 / 300 Balance -200 / 480 -500 / -20 -300 / -300 Physical Exam Const: COMMON NORMALS: no acute distress and patient oriented x3 Resp: COMMON NORMALS: normal respiratory effort and clear to auscultation bilaterally AUSCULTATION: clear to auscultation bilaterally Cardio: COMMON NORMALS: regular rate, regular rhythm and S2 normal heart sound present RATE: regular rate RHYTHM: regular rhythm HEART SOUNDS: S2 normal heart sound present OTHER: No lower extremity edema GI: COMMON NORMALS: Normal to inspection, nondistended, normoactive bowel sounds present and Soft to palpation PALPATION: Yes Soft to palpation OTHER: Slight right upper quadrant pain on palpation. Neuro: COMMON NORMALS: patient oriented x3 and no focal motor deficits Data : 07/25/20 11:54 07/26/20 05:05 Micro: Microbiology 07/21/20 07:25 Blood Culture - Final Blood NO GROWTH AFTER 5 DAYS A&P Assessment and plan (1) Acute cholecystitis: Status: Acute (2) Chronic kidney disease (CKD): Status: Acute Qualifiers: Chronic kidney disease stage: stage 3 (moderate) Qualified Code(s): N18.3 - Chronic kidney disease, stage 3 (moderate) (3) Type 2 diabetes mellitus with hyperglycemia: Status: Chronic Qualifiers: Diabetes mellitus fdc insulin use: without predatory animal exterminator use Qualified Code(s): E11.65 - Type 2 diabetes mellitus with hyperglycemia (4) Atherosclerotic heart disease of [place] coronary artery without angina pectoris: Status: Chronic Qualifiers: [place] vs. transplanted heart: [place] heart Qualified Code(s): I25.10 - Atherosclerotic heart disease of [place] coronary artery without angina pectoris (5) Dehydration with hyponatremia: Status: Acute Additional A&P Information PLAN: Awaiting morning labs. Patient noted to have thrombocytopenia yesterday and likely related to underlying infection. Clinically appears to be improving but because he is a such a high risk for deterioration I will continue IV antibiotics for at least 1 more day. Continue physical therapy. Attestations Medical Necessity Statement*: Patient with acute cholecystitis outpatient therapy and is very high risk for surgical intervention requires close inpatient monitoring and treatment including IV antibiotics. Coding Level of Care Code Acute [place] Firer/Fireman for [facility] Fwd Diagnoses Acute cholecystitis K81.0 Chronic kidney disease (CKD) N18.3 Chronic kidney disease stage: stage 3 (moderate) Type 2 diabetes mellitus with hyperglycemia E11.65 Diabetes mellitus fdc insulin use: without fdc use Atherosclerotic heart disease of [place] coronary artery without angina pectoris I25.10 [place] vs. transplanted heart: [place] heart Dehydration with hyponatremia E86.0; E87.1
[2020-07-26] MEDS: cyanocobalamin 1,000 mcg/mL SDV 1000 MCG IM (08:59)
[2020-07-26] MEDS: atorvastatin 40 mg Tablet 80 MG PO (09:02)
[2020-07-26] MEDS: losartan 50 mg Tablet 100 MG PO (09:02)
[2020-07-26] MEDS: prasugrel 10 MG Tablet PO (09:02)
[2020-07-26] MEDS: sertraline 50 mg Tablet PO (09:02)
[2020-07-26] MEDS: amlodipine 5 mg Tablet PO (09:03)
[2020-07-26] MEDS: cholecalciferol (vitamin D3) 1,000 unit Tablet 2000 UNIT PO (09:03)
--- NOTE | 2020-07-26 10:35 | DCPLANNER ---
Pg 2 of IM updated and reviewed with pt. No questions, copy provided.
[2020-07-26] MEDS: ciprofloxacin 400 MG/200 ML PREMIX 200 MG IV ×2 (10:40→21:29)
[2020-07-26 11:05] LABS: Glucose Point of Care 270 mg/dL (70-110)
[2020-07-26] MEDS: enoxaparin 30 mg/0.3 mL Syringe SUBCUT (11:56)
--- NOTE | 2020-07-26 16:42 | P.PN_ITS ---
Subjective Subjective: Interval history: Overall feels better, tolerating p.o. intake Vitals/I&O/Wt Last Vital Signs Temp 99.4 F 07/26/20 15:22 Pulse 85 07/26/20 15:22 Resp 18 07/26/20 15:22 BP 124/62 07/26/20 15:22 Pulse Ox 94 07/26/20 15:22 07/26/20 07/26/20 07/26/20 06:59 14:59 22:59 Intake Total 100 / 1430 220 / 220 Output Total 500 / 1150 400 / 400 Balance -400 / 280 -180 / -180 Physical Exam Narrative: EXAM NARRATIVE: Patient is conscious alert oriented X3 BMI 24 ,neck examination PERRLA no masses no cervical lymphadenopathy no jaundice Abdomen non-tender nondistended soft no organomegaly guarding or rigidity/no si gns of peritonitis Data : 07/26/20 05:05 07/26/20 05:05 Micro: Microbiology 07/21/20 07:25 Blood Culture - Final Blood NO GROWTH AFTER 5 DAYS A&P Assessment and plan (1) Acute cholecystitis: Patient continues to respond well to conservative measures Can advance diet as tolerated cardiac/diabetic/low-fat If patient continues to do well can be discharged home on oral antibiotics for at least 10 days and follow-up with me as an outpatient.To discuss further interval cholecystectomy in 4 to 6 weeks after cardiac clearance. Encourage ambulation Assurance and education All questions have been answered and all concerns have been addressed to patient's satisfaction. Status: Acute Attestations Medical Necessity Statement*: Inpatient hospitalization for IV antibiotic therapy Time Spent in Patient Care: (>than 50% of time spent in counselling and/or direct pt care on unit) . 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
[2020-07-26 17:23] LABS: Glucose Point of Care 189 mg/dL (70-110)
--- NOTE | 2020-07-26 19:43 | P.PN_ITS ---
Subjective Subjective: Interval history: Patient is right upper quadrant pain is improving. However he looks tired and has some shortness of breath with activities. His BNP was found to be elevated in the 2000 range, from last evening Medications: Reviewed: Yes Medication Review Details: Current Medications Acetaminophen (Acetaminophen 500 Mg Tablet) 500 mg PO BEDTIME PRN PRN Reason: Pain Amlodipine Besylate (Amlodipine 5 Mg Tablet) 5 mg PO DAILY [facility] Last Admin: 07/26/20 09:03 Dose: 5 mg Documented by: Atorvastatin Calcium (Atorvastatin 40 Mg Tablet) 80 mg PO DAILY TELLY Last Admin: 07/26/20 09:02 Dose: 80 mg Documented by: Cyanocobalamin (Cyanocobalamin 1,000 Mcg/Ml Sdv) 1,000 mcg IM DAILY TELLY Last Admin: 07/26/20 08:59 Dose: 1,000 mcg Documented by: Dextrose (Dextrose 50% Syringe 50 Ml) 25 ml IVP ONCE PRN; Protocol PRN Reason: hypoglycemia protocol Dextrose (Dextrose 50% Syringe 50 Ml) 50 ml IVP PRN PRN; Protocol PRN Reason: hypoglycemia protocol Enoxaparin Sodium (Enoxaparin 30 Mg/0.3 Ml Syringe) 30 mg SUBCUT Q24H TELLY Last Admin: 07/26/20 11:56 Dose: 30 mg Documented by: Furosemide (Furosemide 40 Mg Tablet) 40 mg PO DAILY@0800 TELLY Glucagon (Glucagon 1 Mg/Ml Inj 1 Ml) 1 mg IM ONCE PRN; Protocol PRN Reason: Adult Acute Hypoglycemia Prot. Ciprofloxacin/Dextrose (Cipro) 400 mg in 200 mls @ 200 mls/hr IV Q12H TELLY; Protocol Last Admin: 07/26/20 10:40 Dose: 200 mls/hr Documented by: Metronidazole (Flagyl Iv) 500 mg in 100 mls @ 100 mls/hr IV Q8H TELLY; Protocol Last Admin: 07/26/20 15:48 Dose: 100 mls/hr Documented by: Dextrose (D5w) 500 mls @ 100 mls/hr IV ONCE PRN; Protocol PRN Reason: Adult Acute Hypoglycemia Prot Insulin Aspart (Insulin Aspart 100 Unit/1 Ml) 0 unit SUBCUT WM&BEDTIME TELLY; Protocol Last Admin: 07/26/20 17:58 Dose: 6 unit Documented by: Lactulose (Lactulose Oral Liq 20 Gm/30 Ml Udc) 10 gm PO DAILY PRN PRN Reason: CONSTIPA Losartan Potassium (Losartan 50 Mg Tablet) 100 mg PO DAILY [facility] Last Admin: 07/26/20 09:02 Dose: 100 mg Documented by: Naloxone HCl (Naloxone 0.4 Mg/Ml Sdv) 0.1 mg IVP Q2M PRN PRN Reason: OPIATERV Ondansetron HCl (Ondansetron 2 Mg/Ml Sdv 2 Ml) 4 mg IVP Q8H PRN PRN Reason: vomiting, or N/V if npo Pantoprazole Sodium (Pantoprazole 40 Mg Sdv) 40 mg IVP Q12H [facility] Last Admin: 07/26/20 11:39 Dose: 40 mg Documented by: Potassium Chloride (Potassium Chloride Er 10 Meq Tablet) 20 meq PO DAILY [facility] Prasugrel (Prasugrel 10 Mg Tablet) 10 mg PO DAILY [facility] Last Admin: 07/26/20 09:02 Dose: 10 mg Documented by: Senna (Sennosides 8.6 Mg Tablet) 17.2 mg PO BEDTIME [facility] Last Admin: 07/25/20 21:55 Dose: 17.2 mg Documented by: Sertraline HCl (Sertraline 50 Mg Tablet) 50 mg PO DAILY [facility] Last Admin: 07/26/20 09:02 Dose: 50 mg Documented by: Vitamin D (Cholecalciferol (Vitamin D3) 1,000 Unit Tablet) 2,000 unit PO DAILY [facility] Last Admin: 07/26/20 09:03 Dose: 2,000 unit Documented by: Vitals/I&O/Wt Last Vital Signs Temp 99.4 F 07/26/20 15:22 Pulse 85 07/26/20 15:22 Resp 18 07/26/20 15:22 BP 124/62 07/26/20 15:22 Pulse Ox 94 07/26/20 15:22 07/26/20 07/26/20 07/26/20 06:59 14:59 22:59 Intake Total 100 / 1430 220 / 220 260 / 480 Output Total 500 / 1150 400 / 400 350 / 750 Balance -400 / 280 -180 / -180 -90 / -270 Physical Exam Narrative: EXAM NARRATIVE: GENERAL: The patient is alert and oriented times three. Not in any acute distress. HEENT: No significant pallor, icterus or lymphadenopathy. NECK: Trachea appears to be central. No masses noted. No JVD or thyromegaly appreciated. No carotid bruit. RESPIRATORY: Chest is symmetrical. No intercostals muscle retraction or any accessory muscle activation. There is no chest wall tenderness. Breath sounds are heard bilaterally. Few fine rales in the bases BREASTS: Deferred. HEART: The PMI is in the 5th left intercostals space just inside the midclavicular line. No palpable precordial events. S1 and S2 are normal. No S3 or S4 heard. No pericardial rub or any click heard. Systolic murmur grade 3/6 in the mitral area. No diastolic murmurs. ABDOMEN: No significant tenderness. No organomegaly appreciated. : Deferred. RECTAL: Deferred. LYMPHATIC: No lymphadenopathy noted in the neck or groin. EXTREMITIES: No edema or cyanosis. No clubbing. Peripheral pulses . The dorsalis pedis and posterior tibial pulses are palpable but weak bilaterally MUSCULOSKELETAL: No acute joint deformities or swelling SKIN: There are no significant scars or skin rash noted. NEUROPSYCHIATRIC: The patient is alert and oriented x3. Appears to be in a good mood. The higher functions are grossly within normal limits. No tremors or rigidity noted. Data : 07/26/20 05:05 07/26/20 05:05 Other Labs: Laboratory Last Values WBC 14.5 10^3/uL (4.0-10.0) H 07/26/20 05:05 RBC 3.84 10^6/uL (4.1-5.3) L 07/26/20 05:05 Hgb 11.4 g/dL (11.7-16.6) L 07/26/20 05:05 Hct 35.8 % (42.0-52.0) L 07/26/20 05:05 MCV 93.2 fL (80-94) D 07/26/20 05:05 MCH 29.7 pg (28.0-34.0) 07/26/20 05:05 MCHC 31.8 g/dL (30.0-36.0) 07/26/20 05:05 RDW 13.8 % (12.1-15.1) 07/26/20 05:05 Plt Count 144 10^3/cmm (130-400) 07/26/20 05:05 MPV 11.6 fL (7.4-10.4) H 07/26/20 05:05 Neut % (Auto) 81.2 % 07/26/20 05:05 Lymph % (Auto) 9.6 % 07/26/20 05:05 [place] % (Auto) 7.2 % 07/26/20 05:05 Eos % (Auto) 0.8 % 07/26/20 05:05 Baso % (Auto) 0.3 % 07/26/20 05:05 Neut # (Auto) 11.76 10^3/uL (1.8-7.7) H 07/26/20 05:05 Lymph # (Auto) 1.4 10^3/uL (0.8-4.8) 07/26/20 05:05 [place] # (Auto) 1.0 10^3/uL (0.2-0.9) H 07/26/20 05:05 Eos # (Auto) 0.1 10^3/uL (0.0-0.8) 07/26/20 05:05 Baso # (Auto) 0.0 10^3/uL (0.0-0.1) 07/26/20 05:05 Nucleated RBC % (auto) 0 % 07/26/20 05:05 Nucleated RBCs # 0.0 /100WBC 07/26/20 05:05 PT 15.50 SECONDS (12.1-14.9) H 07/21/20 06:48 INR 1.19 (0.8-1.2) 07/21/20 06:48 Sodium 132 mmol/L (136-145) L 07/26/20 05:05 Potassium 3.3 mmol/L (3.5-5.1) L 07/26/20 05:05 Chloride 99 mmol/L (98-107) 07/26/20 05:05 Carbon Dioxide 21 mmol/L (22-29) L 07/26/20 05:05 Anion Gap 15.3 (5-19) 07/26/20 05:05 BUN 24 mg/dL (8-23) H 07/26/20 05:05 Creatinine 1.1 mg/dL (0.7-1.2) 07/26/20 05:05 GFR Calculation Not Reportable 07/26/20 05:05 Glucose 202 mg/dL (65-115) H 07/26/20 05:05 POC Glucose 189 mg/dL (70-110) 07/26/20 16:57 Calculated Osmolality 284 mOsm/kg (285-295) L 07/26/20 05:05 Lactic Acid 2.0 mmol/L (0.5-2.2) 07/21/20 06:48 Calcium 8.5 mg/dL (8.5-10.5) 07/26/20 05:05 Phosphorus 3.2 mg/dL (2.5-4.5) 07/24/20 05:02 Magnesium 2.0 mg/dL (1.7-2.3) 07/26/20 05:05 Total Bilirubin 0.3 mg/dL (0.15-1.2) 07/26/20 05:05 AST 66 U/L (0-40) H 07/26/20 05:05 ALT 26 U/L (0-41) 07/26/20 05:05 Alkaline Phosphatase 109 IU/L (40-130) 07/26/20 05:05 Troponin T Gen 5 ng/L 26 ng/L (0-15) H 07/21/20 06:48 NT-Pro-B Natriuret Pep 2045 pg/mL (0-450) H 07/25/20 Unknown Total Protein 5.5 g/dL (6.6-8.7) L 07/26/20 05:05 Albumin 2.6 g/dL (3.5-5.2) L 07/26/20 05:05 Globulin 2.9 g/dL (1.3-4.6) 07/26/20 05:05 Lipase 15 U/L (13-60) 07/21/20 06:48 Micro: Microbiology 07/21/20 07:25 Blood Culture - Final Blood NO GROWTH AFTER 5 DAYS A&P Assessment and plan (1) Acute on chronic diastolic (congestive) heart failure: Patient may be started on Lasix 40 mg p.o. daily with the Lasix 20 mg p.o. daily. Status: Acute (2) SOB (shortness of breath): Most likely related to the heart failure. Status: Acute (3) Atherosclerotic heart disease of [place] coronary artery without angina pectoris: Clinically seems to be stable. May continue on the current medications Status: Chronic Qualifiers: [place] vs. transplanted heart: [place] heart Qualified Code(s): I25.10 - Atherosclerotic heart disease of [place] coronary artery without angina pectoris (4) Mitral regurgitation: The mitral dilatation was moderate by echocardiogram in February. Specific intervention at this point. We will continue the current measures. Status: Acute Qualifiers: Cardiac valve disease etiology: nonrheumatic Qualified Code(s): I34.0 - Nonrheumatic mitral (valve) insufficiency (5) Dyslipidemia: Patient may continue on the current medications, if the liver enzymes are staying in the normal range Status: Chronic (6) Benign essential HTN: Currently the blood pressure is in the normal range. May continue on the current medications. Status: Chronic (7) Type 2 diabetes mellitus with hyperglycemia: We will continue to optimize the medications. Status: Chronic Qualifiers: Diabetes mellitus skilled nursing insulin use: without terminal operator use Qualified Code(s): E11.65 - Type 2 diabetes mellitus with hyperglycemia (8) Acute cholecystitis: Management as per the primary. Seems to be improving. The CBC is returning to the baseline. Status: Acute Additional A&P Information Other problems are Renal insufficiency Leukocytosis, trending down. Lasix 40 mg p.o. with the potassium 20 mEq p.o. daily Attestations Medical Necessity Statement*: Patient requires continued hospital stay for close monitoring and further management Coding Level of Care Code Acute Stone Decorator for Chg Fwd Diagnoses Acute on chronic diastolic (congestive) heart failure I50.33 SOB (shortness of breath) R06.02 Atherosclerotic heart disease of [place] coronary artery without angina pectoris I25.10 [place] vs. transplanted heart: [place] heart Mitral regurgitation I34.0 Cardiac valve disease etiology: nonrheumatic Dyslipidemia E78.5 Benign essential HTN I10 Type 2 diabetes mellitus with hyperglycemia E11.65 Diabetes mellitus skilled nursing insulin use: without terminal operator use Acute cholecystitis K81.0
[2020-07-26 21:27] LABS: Glucose Point of Care 191 mg/dL (70-110)
[2020-07-26] MEDS: FUROsemide 40 mg Tablet PO (21:27)
[2020-07-26] MEDS: sennosides 8.6 mg Tablet 17.2 MG PO (21:28)
[2020-07-26] MEDS: potassium chloride ER 20 mEq Tablet PO (21:28)
[2020-07-27] VITALS (8 sets, daily range): BP systolic 112–127; BP diastolic 54–76; PULSE 75–87; RESP 16–18; TEMP 36.6–37.5; O2SAT 94–97
[2020-07-27] MEDS: metroNIDAZOLE IV 500 MG/100 ML PREMIX 100 MG IV ×3 (01:10→15:56)
[2020-07-27] MEDS: pantoprazole 40 mg SDV IVP ×2 (01:31→12:08)
[2020-07-27 05:37] LABS: Basophils % 0.2 %; Eosinophils # 0.2 10^3/uL (0.0-0.8); Eosinophils % 1.2 %; Hematocrit 35.5 % (42.0-52.0); Hemoglobin 11.4 g/dL (11.7-16.6); Lymphocytes # 1.1 10^3/uL (0.8-4.8); Lymphocytes % 8.4 %; Mean Corpuscular HGB Conc 32.1 g/dL (30.0-36.0); Mean Corpuscular Hemoglobin 30.2 pg (28.0-34.0); Mean Corpuscular Volume 93.9 fL (80-94); Mean Platelet Volume 11.2 fL (7.4-10.4); Monocytes # 1.1 10^3/uL (0.2-0.9); Neutrophils % 81.4 %; Nucleated Red Blood Cells % 0 %; Platelet Count 167 10^3/cmm (130-400); Red Blood Count 3.78 10^6/uL (4.1-5.3); White Blood Count 13.5 10^3/uL (4.0-10.0)
[2020-07-27 06:09] LABS: Alanine Aminotransferase 24 U/L (0-41); Albumin Level 2.5 g/dL (3.5-5.2); Alkaline Phosphatase 161 IU/L (40-130); Anion Gap 14.4 (5-19); Aspartate Amino Transferase 56 U/L (0-40); Blood Urea Nitrogen 23 mg/dL (8-23); Calcium 8.7 mg/dL (8.5-10.5); Carbon Dioxide 24 mmol/L (22-29); Chloride 99 mmol/L (98-107); Globulin 3.1 g/dL (1.3-4.6); Glucose 206 mg/dL (65-115); Magnesium 1.9 mg/dL (1.7-2.3); Osmolality Calculated 288 mOsm/kg (285-295); Potassium 3.4 mmol/L (3.5-5.1); Sodium 134 mmol/L (136-145); Total Bilirubin 0.4 mg/dL (0.15-1.2); Total Protein 5.6 g/dL (6.6-8.7)
[2020-07-27 06:56] LABS: Glucose Point of Care 192 mg/dL (70-110)
[2020-07-27] MEDS: cyanocobalamin 1,000 mcg/mL SDV 1000 MCG IM (08:50)
[2020-07-27] MEDS: sertraline 50 mg Tablet PO (08:50)
[2020-07-27] MEDS: FUROsemide 40 mg Tablet PO (08:51)
[2020-07-27] MEDS: prasugrel 10 MG Tablet PO (08:51)
[2020-07-27] MEDS: potassium chloride ER 20 mEq Tablet PO (08:51)
[2020-07-27] MEDS: losartan 50 mg Tablet 100 MG PO (08:51)
[2020-07-27] MEDS: amlodipine 5 mg Tablet PO (08:51)
[2020-07-27] MEDS: cholecalciferol (vitamin D3) 1,000 unit Tablet 2000 UNIT PO (08:51)
[2020-07-27] MEDS: atorvastatin 40 mg Tablet 80 MG PO (08:52)
--- NOTE | 2020-07-27 10:29 | PM.PN ---
Subjective Subjective: Interval history: Patient has very poor appetite and oral intake. His white blood cell count still remains elevated and he has very minimal discomfort of his right upper quadrant on palpation. His diastolic blood pressure slightly low. He remains afebrile. Vitals/I&O/Wt Last Vital Signs Temp 98.3 F 07/27/20 08:00 Pulse 82 07/27/20 08:00 Resp 17 07/27/20 08:00 BP 127/54 07/27/20 08:51 Pulse Ox 95 07/27/20 08:00 07/26/20 07/27/20 07/27/20 22:59 06:59 14:59 Intake Total 360 / 780 100 / 880 240 / 240 Output Total 550 / 950 550 / 1500 Balance -190 / -170 -450 / -620 240 / 240 Physical Exam Const: COMMON NORMALS: no acute distress, patient oriented x3 and alert HENMT: COMMON NORMALS: normocephalic and atraumatic HEAD & SCALP: normocephalic and atraumatic Eye: COMMON NORMALS: EOMs intact bilaterally, conjunctivae normal and no scleral icterus CONJUNCTIVA: Yes conjunctivae normal Neck/C-Spine: COMMON NORMALS: no lymphadenopathy and no meningeal signs Lymph: LYMPHATIC: no lymphadenopathy noted Chest: COMMONS NORMALS: normal palpation of entire chest wall Resp: COMMON NORMALS: normal respiratory effort, No use of accessory muscles and clear to auscultation bilaterally AUSCULTATION: clear to auscultation bilaterally Cardio: COMMON NORMALS: regular rate, regular rhythm, S2 normal heart sound present and No murmurs present (Cardio) RATE: regular rate RHYTHM: regular rhythm HEART SOUNDS: S2 normal heart sound present OTHER: No lower extremity edema GI: COMMON NORMALS: Normal to inspection, nondistended, normoactive bowel sounds present and Soft to palpation PALPATION: Yes Soft to palpation, Yes Tenderness to palpation present (GI), No Guarding due to palpation present (GI) and No Rigid due to palpation RECTAL EXAM: Yes deferred OTHER: Slight right upper quadrant pain on palpation. : COMMON NORMALS: Yes no CVA tenderness BLADDER/KIDNEY EXAM: Yes no CVA tenderness Back/Pelvis: COMMON NORMALS: no CVA tenderness and thoracic and lumbar spine normal to inspection Extremity: COMMON NORMALS: normal to inspection and capillary refill normal Neuro: COMMON NORMALS: patient oriented x3 and no focal motor deficits SENSORIUM/ORIENTATION: Yes alert MENINGEAL SIGNS: Yes no meningeal signs Psych: COMMON NORMALS: mental status grossly normal, Normal thought process present and cooperative THOUGHT PROCESS: Normal thought process present Skin: COMMON NORMALS: no rashes or lesions noted GENERAL SKIN EXAM: no rashes or lesions noted Data : 07/27/20 05:03 07/27/20 05:03 Micro: Microbiology 07/21/20 07:25 Blood Culture - Final Blood NO GROWTH AFTER 5 DAYS A&P Assessment and plan (1) Acute cholecystitis: Status: Acute (2) Chronic kidney disease (CKD): Status: Acute Qualifiers: Chronic kidney disease stage: stage 3 (moderate) Qualified Code(s): N18.3 - Chronic kidney disease, stage 3 (moderate) (3) Type 2 diabetes mellitus with hyperglycemia: Status: Chronic Qualifiers: Diabetes mellitus retirement insulin use: without biodiesel technology manager use Qualified Code(s): E11.65 - Type 2 diabetes mellitus with hyperglycemia (4) Atherosclerotic heart disease of [place] coronary artery without angina pectoris: Status: Chronic Qualifiers: [place] vs. transplanted heart: [place] heart Qualified Code(s): I25.10 - Atherosclerotic heart disease of [place] coronary artery without angina pectoris (5) Dehydration with hyponatremia: Status: Acute Additional A&P Information PLAN: Thrombocytopenia nicely improving. I am concerned discharging patient today given his significantly decreased oral intake. We will keep patient for 1 more day and if white blood cell count continues to improve and he is eating better I will likely be able to dismiss him home tomorrow. Replete potassium. Continue PT. Attestations Medical Necessity Statement*: Patient with cholecystitis continues to have decreased oral intake and abdominal discomfort requiring close inpatient monitoring and treatment. 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 transplanted heart: [place] heart Dehydration with hyponatremia E86.0; E87.1
[2020-07-27 10:37] LABS: Glucose Point of Care 267 mg/dL (70-110)
[2020-07-27] MEDS: ciprofloxacin 400 MG/200 ML PREMIX 200 MG IV ×2 (10:50→22:26)
[2020-07-27] MEDS: potassium chloride ER 10 mEq Tablet 40 MEQ PO (10:50)
--- NOTE | 2020-07-27 11:50 | P.PN_ITS ---
Subjective Subjective: Interval history: Patient has been doing well. His appetite is improving. Shortness of breath is much better. Vitals/I&O/Wt Last Vital Signs Temp 97.9 F 07/27/20 11:48 Pulse 75 07/27/20 11:48 Resp 17 07/27/20 11:48 BP 112/63 07/27/20 11:48 Pulse Ox 97 07/27/20 11:48 07/26/20 07/27/20 07/27/20 22:59 06:59 14:59 Intake Total 560 / 980 100 / 1080 240 / 240 Output Total 550 / 950 550 / 1500 Balance -450 / -420 240 / 240 Physical Exam Narrative: EXAM NARRATIVE: GENERAL: The patient is alert and oriented times three. Not in any acute distress. HEENT: No significant pallor, icterus or lymphadenopathy. NECK: Trachea appears to be central. No masses noted. No JVD or thyromegaly appreciated. No carotid bruit. RESPIRATORY: Chest is symmetrical. No intercostals muscle retraction or any accessory muscle activation. There is no chest wall tenderness. Breath sounds are heard bilaterally. Clear lungs now BREASTS: Deferred. HEART: The PMI is in the 5th left intercostals space just inside the midcla vicular line. No palpable precordial events. S1 and S2 are normal. No S3 or S4 heard. No pericardial rub or any click heard. Systolic murmur grade 3/6 in the mitral area. No diastolic murmurs. ABDOMEN: No significant tenderness. No organomegaly appreciated. LYMPHATIC: No lymphadenopathy noted in the neck or groin. EXTREMITIES: No edema or cyanosis. No clubbing. Peripheral pulses . The dorsal is pedis and posterior tibial pulses are palpable but weak bilaterally MUSCULOSKELETAL: No acute joint deformities or swelling SKIN: There are no significant scars or skin rash noted. NEUROPSYCHIATRIC: The patient is alert and oriented x3. Appears to be in a good mood. The higher functions are grossly within normal limits. No tremors or rigidity noted. Data : 07/28/20 05:55 07/28/20 05:55 Micro: Microbiology 07/21/20 07:25 Blood Culture - Final Blood NO GROWTH AFTER 5 DAYS A&P Assessment and plan (1) Acute cholecystitis: Management as per the primary. Seems to be improving. Status: Acute (2) Acute on chronic diastolic (congestive) heart failure: Continue current dose of Lasix Status: Acute (3) SOB (shortness of breath): Most likely related to the heart failure. Status: Acute (4) Atherosclerotic heart disease of [place] coronary artery without angina pectoris: Clinically seems to be stable. May continue on the current medications Status: Chronic Qualifiers: [place] vs. transplanted heart: [place] heart Qualified Code(s): I25.10 - Atherosclerotic heart disease of [place] coronary artery without angina pectoris (5) Mitral regurgitation: The mitral dilatation was moderate by echocardiogram in February. Specific intervention at this point. We will continue the current measures. Status: Acute Qualifiers: Cardiac valve disease etiology: nonrheumatic Qualified Code(s): I34.0 - Nonrheumatic mitral (valve) insufficiency (6) Dyslipidemia: Patient may continue on the current medications, if the liver enzymes are staying in the normal range Status: Chronic (7) Benign essential HTN: Currently the blood pressure is in the normal range. May continue on the current medications. Status: Chronic (8) Type 2 diabetes mellitus with hyperglycemia: We will continue to optimize the medications. Status: Chronic Qualifiers: Diabetes mellitus sheep clipper insulin use: without sheep clipper use Qualified Code(s): E11.65 - Type 2 diabetes mellitus with hyperglycemia Additional A&P Information Other problems are Renal insufficiency Leukocytosis, trending down. Lasix 40 mg p.o. with the potassium 20 mEq p.o. daily Attestations Medical Necessity Statement*: Care expected to cross 2 days Coding Level of Care Code Acute Drafter Seismograph for [facility] Diagnoses Acute cholecystitis K81.0 Acute on chronic diastolic (congestive) heart failure I50.33 SOB (shortness of breath) R06.02 Atherosclerotic heart disease of [place] coronary artery without angina pectoris I25.10 [place] vs. transplanted heart: [place] heart Mitral regurgitation I34.0 Cardiac valve disease etiology: nonrheumatic Dyslipidemia E78.5 Benign essential HTN I10 Type 2 diabetes mellitus with hyperglycemia E11.65 Diabetes mellitus sheep clipper insulin use: without sheep clipper use
[2020-07-27] MEDS: enoxaparin 30 mg/0.3 mL Syringe SUBCUT (12:07)
[2020-07-27 16:04] LABS: Glucose Point of Care 225 mg/dL (70-110)
[2020-07-27 20:53] LABS: Glucose Point of Care 231 mg/dL (70-110)
[2020-07-27] MEDS: sennosides 8.6 mg Tablet 17.2 MG PO (22:26)
[2020-07-28] MEDS: metroNIDAZOLE IV 500 MG/100 ML PREMIX 100 MG IV ×2 (00:52→08:42)
[2020-07-28] MEDS: pantoprazole 40 mg SDV IVP ×2 (01:05→11:38)
[2020-07-28 04:00] VITALS: BP 132/68; PULSE 76; RESP 20; TEMP 36.7; O2SAT 99
[2020-07-28 06:36] LABS: Basophils % 0.2 %; Eosinophils # 0.1 10^3/uL (0.0-0.8); Eosinophils % 1.2 %; Hematocrit 37.6 % (42.0-52.0); Hemoglobin 11.8 g/dL (11.7-16.6); Lymphocytes # 1.3 10^3/uL (0.8-4.8); Lymphocytes % 10.5 %; Mean Corpuscular HGB Conc 31.4 g/dL (30.0-36.0); Mean Corpuscular Hemoglobin 29.4 pg (28.0-34.0); Mean Corpuscular Volume 93.8 fL (80-94); Mean Platelet Volume 11.2 fL (7.4-10.4); Monocytes # 0.9 10^3/uL (0.2-0.9); Monocytes % 7.6 %; Neutrophils % 79.9 %; Nucleated Red Blood Cells % 0 %; Platelet Count 183 10^3/cmm (130-400); Red Blood Count 4.01 10^6/uL (4.1-5.3); Red Cell Distribution Width 14.4 % (12.1-15.1); White Blood Count 12.1 10^3/uL (4.0-10.0)
[2020-07-28 07:06] LABS: Alanine Aminotransferase 22 U/L (0-41); Albumin Level 2.7 g/dL (3.5-5.2); Alkaline Phosphatase 165 IU/L (40-130); Anion Gap 15.1 (5-19); Aspartate Amino Transferase 43 U/L (0-40); Blood Urea Nitrogen 20 mg/dL (8-23); Calcium 8.8 mg/dL (8.5-10.5); Carbon Dioxide 25 mmol/L (22-29); Chloride 100 mmol/L (98-107); Glucose 244 mg/dL (65-115); Magnesium 1.6 mg/dL (1.7-2.3); Osmolality Calculated 295 mOsm/kg (285-295); Potassium 3.1 mmol/L (3.5-5.1); Sodium 137 mmol/L (136-145); Total Bilirubin 0.4 mg/dL (0.15-1.2); Total Protein 5.7 g/dL (6.6-8.7)
[2020-07-28 07:09] LABS: Glucose Point of Care 244 mg/dL (70-110)
[2020-07-28 07:13] VITALS: BP 134/69; PULSE 76; RESP 17; TEMP 36.8; O2SAT 97
[2020-07-28] MEDS: atorvastatin 40 mg Tablet 80 MG PO (08:40)
[2020-07-28] MEDS: sertraline 50 mg Tablet PO (08:40)
[2020-07-28] MEDS: prasugrel 10 MG Tablet PO (08:40)
[2020-07-28] MEDS: FUROsemide 40 mg Tablet PO (08:40)
[2020-07-28 08:41] VITALS: BP 134/69
[2020-07-28] MEDS: cyanocobalamin 1,000 mcg/mL SDV 1000 MCG IM (08:41)
[2020-07-28] MEDS: potassium chloride ER 20 mEq Tablet PO (08:41)
[2020-07-28] MEDS: losartan 50 mg Tablet 100 MG PO (08:41)
[2020-07-28] MEDS: amlodipine 5 mg Tablet PO (08:41)
[2020-07-28] MEDS: cholecalciferol (vitamin D3) 1,000 unit Tablet 2000 UNIT PO (08:41)
[2020-07-28] MEDS: potassium chloride ER 10 mEq Tablet 40 MEQ PO (10:19)
[2020-07-28] MEDS: magnesium sulfate premix 4 GM/100 ML PREMIX IV (10:20)
[2020-07-28] MEDS: ciprofloxacin 400 MG/200 ML PREMIX 200 MG IV (10:20)
--- NOTE | 2020-07-28 10:34 | PM.DCS ---
Discharge Providers Date of Admission: 07/21/20 10:15 Date of Discharge: July 28, 2020 Attending Provider at Admission: Maury Trevino MD Attending Provider at Discharge: Maury Trevino MD Primary Care Provider: ALEJANDRINA Meza Diagnoses at Discharge Discharge Diagnosis (1) Acute cholecystitis: Status: Acute (2) Acute on chronic diastolic (congestive) heart failure: Status: Acute (3) SOB (shortness of breath): Status: Acute (4) Atherosclerotic heart disease of [place] coronary artery without angina pectoris: Status: Chronic Qualifiers: [place] vs. transplanted heart: [place] heart Qualified Code(s): I25.10 - Atherosclerotic heart disease of [place] coronary artery without angina pectoris (5) Mitral regurgitation: Status: Acute Qualifiers: Cardiac valve disease etiology: nonrheumatic Qualified Code(s): I34.0 - Nonrheumatic mitral (valve) insufficiency (6) Dyslipidemia: Status: Chronic (7) Benign essential HTN: Status: Chronic (8) Type 2 diabetes mellitus with hyperglycemia: Status: Chronic Qualifiers: Diabetes mellitus joint terminal attack controller insulin use: without alf use Qualified Code(s): E11.65 - Type 2 diabetes mellitus with hyperglycemia Reason for Visit Reason for Visit: RUQ PAIN Hospital Course Hospital Course Patient with coronary artery intervention in February and currently being treated on Effient presented with worsening abdominal pain and acute cholecystitis that failed outpatient therapy. Patient was admitted and treated with IV antibiotics and fluids and gradually improved and this morning reports feeling much better and strong enough to be dismissed home. Reports that his abdominal pain resolved unless he applies pressure to his right upper quadrant and even that he reports is gradually getting better. His oral intake appears to be improving. Patient reports that he does not like food served in hospital and will probably eat better at home. Patient has been seen by cardiology doctors and started on Lasix for some evidence of fluid retention. Patient reports that his scrotum is slightly swollen. He does have trace bilateral lower extremity edema and his scrotum is slightly edematous and erythematous but nontender to palpation. Patient denies any difficulty with urination. We will continue Lasix and add potassium. I will request repeat lab work in several days prior to primary care physician follow-up. I will continue patient on ciprofloxacin and Flagyl for 7 more days and request outpatient follow-up with Dr. Chantelle in 1 week. Patient was told to immediately come back in case if his condition worsens as at that time we have to place him to ICU and initiate Integrilin with discontinuation of Effient and after 5 to 7 days perform cholecystectomy. Patient is definitely a high risk of worsening. Patient felt comfortable with plan of care. He ambulates with a walker without difficulty. This morning patient denies shortness of breath or chest pain. He had loose bowel movement but denies diarrhea. We have discussed regarding possibility of C. difficile diarrhea and patient will notify his doctor if diarrhea worsens or persist after antibiotics are stopped. Should patient's gallbladder cool off with antibiotics plan to perform cholecystectomy down the road once it is safe to discontinue Effient. Physical Exam Const: COMMON NORMALS: no acute distress and patient oriented x3 Resp: COMMON NORMALS: normal respiratory effort and clear to auscultation bilaterally AUSCULTATION: clear to auscultation bilaterally Cardio: COMMON NORMALS: regular rate, regular rhythm and S2 normal heart sound present RATE: regular rate RHYTHM: regular rhythm HEART SOUNDS: S2 normal heart sound present OTHER: No lower extremity edema GI: COMMON NORMALS: Normal to inspection, nondistended, normoactive bowel sounds present, Soft to palpation and non-tender PALPATION: Yes Soft to palpation Neuro: COMMON NORMALS: patient oriented x3 and no focal motor deficits Discharge Data Data Completed and Pending: Completed Studies During Hospitalization Category Date Time Status CT abdomen pelvis w con* [id number] Urge nt Cat Scan 07/21/20 06:43 Completed MR MRCP [id number] Urg ent MRI 07/21/20 07:34 Completed US gall bladder 7 [id number] Urgent Ultrasound 07/21/20 07:09 Completed Labs from last 24 hours 07/28/20 07/28/20 07/28/20 06:41 05:55 05:55 WBC 12.1 H RBC 4.01 L Hgb 11.8 Hct 37.6 L MCV 93.8 MCH 29.4 MCHC 31.4 RDW 14.4 Plt Count 183 MPV 11.2 H Neut % (Auto) 79.9 Lymph % (Auto) 10.5 [place] % (Auto) 7.6 Eos % (Auto) 1.2 Baso % (Auto) 0.2 Neut # (Auto) 9.70 H Lymph # (Auto) 1.3 [place] # (Auto) 0.9 Eos # (Auto) 0.1 Baso # (Auto) 0.0 Nucleated RBC % (a uto) 0 Nucleated RBCs # 0.0 Sodium 137 Potassium 3.1 L Chloride 100 Carbon Dioxide 25 Anion Gap 15.1 BUN 20 Creatinine 1.1 GFR Calculation Not Reportable Glucose 244 H POC Glucose 244 Calculated Osmolal ity 295 Calcium 8.8 Magnesium 1.6 L Total Bilirubin 0.4 AST 43 H ALT 22 Alkaline Phosphata se 165 H Total Protein 5.7 L Albumin 2.7 L Globulin 3.0 07/27/20 07/27/20 07/27/20 20:49 16:02 10:34 WBC RBC Hgb Hct MCV MCH MCHC RDW Plt Count MPV Neut % (Auto) Lymph % (Auto) [place] % (Auto) Eos % (Auto) Baso % (Auto) Neut # (Auto) Lymph # (Auto) [place] # (Auto) Eos # (Auto) Baso # (Auto) Nucleated RBC % (a uto) Nucleated RBCs # Sodium Potassium Chloride Carbon Dioxide Anion Gap BUN Creatinine GFR Calculation Glucose POC Glucose 231 225 267 Calculated Osmolal ity Calcium Magnesium Total Bilirubin AST ALT Alkaline Phosphata se Total Protein Albumin Globulin Vitals: Last Vital Signs Temp 98.3 F 07/28/20 07:13 Pulse 76 07/28/20 07:13 Resp 17 07/28/20 07:13 BP 134/69 07/28/20 08:41 Pulse Ox 97 07/28/20 07:13 Discharge Plan Discharge Patient Disposition: Home Condition: Stable Prescriptions: New furosemide 40 mg Tablet 40 mg PO DAILY@0800 Qty: 30 RF: 0 potassium chloride [Klor-Con M20] 20 mEq Tablet,Er Particles/Crystals 40 meq PO DAILY Qty: 60 RF: 0 metronidazole [Flagyl] 500 mg tablet 500 mg PO TID Qty: 21 RF: 0 ciprofloxacin HCl 500 mg tablet 500 mg PO BID Qty: 7 RF: 0 Continued nitroglycerin [Nitrostat] 0.4 mg tablet, sublingual 0.4 mg SUBLINGUAL Q5M PRN (Reason: chest pain) 30 Days Qty: 30 RF: 3 cyanocobalamin (vitamin B-12) [Vitamin B-12] 1,000 mcg tablet 1,000 mcg PO DAILY RF: 0 cholecalciferol (vitamin D3) 1,000 unit capsule 2,000 unit PO DAILY RF: 0 sertraline [Zoloft] 100 mg tablet 50 mg PO DAILY RF: 0 acetaminophen 500 mg capsule 500 mg PO BEDTIME PRN (Reason: Pain) RF: 0 atorvastatin 80 mg tablet 80 mg PO DAILY Qty: 90 RF: 1 Novolin 70/30 U-100 Insulin 100 unit/mL (70-30) suspension See Rx Instructions SUBCUT BID Qty: 60 RF: 2 prasugrel 10 mg tablet 10 mg PO DAILY Qty: 30 RF: 0 Jardiance 10 mg tablet 10 mg PO DAILY Qty: 90 RF: 1 amlodipine 5 mg tablet 5 mg PO DAILY RF: 0 irbesartan 300 mg tablet 300 mg PO DAILY RF: 0 coenzyme Q10 [CoQ-10] 100 mg Capsule 100 mg PO DAILY RF: 0 Discontinued ciprofloxacin HCl [Cipro] 500 mg tablet 500 mg PO BID 7 Days Qty: 14 RF: 0 Discharge Orders: Discharge Order (Routine); Ordered 07/28/20 Ordered By: Maury Trevino Other Ambulatory Orders: Complete Blood Count w/Auto (Routine) Timeframe: 3 Days Location: Determined by Patient Ordered By: Maury Trevino Comprehensive Metabolic Panel (Routine) Timeframe: 3 Days Facility: [facility] - Location: Lab - Main Lab Ordered By: Maury Trevino Referrals: Rosario Girard MD [Physician] - 1 week Best Dooley MD [Physician] - 1 week Martínez Diehl FNP-C [Primary Care Provider] - 4-7 days Discharge Diet: Advance as tolerated Discharge Activity: Increase activity as tolerated Activity Restrictions/Additional Instructions: Please call your doctor or present to emergency department if your condition worsens or you develop diarrhea, lightheadedness, fatigue or see blood in your stool or black stool. Please immediately come back if you feel that your condition including abdominal pain is worsening as we have discussed. Please keep blood sugar, blood pressure and heart rate log 3 times daily to present to primary care physician next visit for medication adjustment. 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 transplanted heart: [place] heart Mitral regurgitation I34.0 Cardiac valve disease etiology: nonrheumatic Dyslipidemia E78.5 Benign essential HTN I10 Type 2 diabetes mellitus with hyperglycemia E11.65 Diabetes mellitus joint terminal attack controller insulin use: without alf use
--- NOTE | 2020-07-28 10:35 | P.PN_ITS ---
Subjective Subjective: Interval history: Patient is feeling much better. Denies any complaints of chest pain, shortness of breath or palpitations. Vitals/I&O/Wt Last Vital Signs Temp 98.3 F 07/28/20 07:13 Pulse 76 07/28/20 07:13 Resp 17 07/28/20 07:13 BP 134/69 07/28/20 08:41 Pulse Ox 97 07/28/20 07:13 07/27/20 07/28/20 07/28/20 22:59 06:59 14:59 Intake Total 340 / 1360 540 / 1900 Output Total 450 / 450 Balance 340 / 1360 90 / 1450 Physical Exam Narrative: EXAM NARRATIVE: GENERAL: The patient is alert and oriented times three. Not in any acute distress. HEENT: No significant pallor, icterus or lymphadenopathy. NECK: Trachea appears to be central. No masses noted. No JVD or thyromegaly appreciated. No carotid bruit. RESPIRATORY: Chest is symmetrical. No intercostals muscle retraction or any accessory muscle activation. There is no chest wall tenderness. Breath sounds are heard bilaterally. Clear lungs now BREASTS: Deferred. HEART: The PMI is in the 5th left intercostals space just inside the midclavicular line. No palpable precordial events. S1 and S2 are normal. No S3 or S4 heard. No pericardial rub or any click heard. Systolic murmur grade 3/6 in the mitral area. No diastolic murmurs. ABDOMEN: No significant tenderness. No organomegaly appreciated. LYMPHATIC: No lymphadenopathy noted in the neck or groin. EXTREMITIES: No edema or cyanosis. No clubbing. Peripheral pulses . The dorsalis pedis and posterior tibial pulses are palpable but weak bilaterally MUSCULOSKELETAL: No acute joint deformities or swelling SKIN: There are no significant scars or skin rash noted. NEUROPSYCHIATRIC: The patient is alert and oriented x3. Appears to be in a good mood. The higher functions are grossly within normal limits. No tremors or rigidity noted. Data : 07/28/20 05:55 07/28/20 05:55 A&P Assessment and plan (1) Acute cholecystitis: Management as per the primary. Seems to be improving. Status: Acute (2) Acute on chronic diastolic (congestive) heart failure: Will decrease the dose of Lasix to 20mg daily as patient appears euvolemic. Will need potassium replacement Status: Acute (3) SOB (shortness of breath): Most likely related to the heart failure. Status: Acute (4) Atherosclerotic heart disease of [place] coronary artery without angina pectoris: Clinically seems to be stable. May continue on the current medications Status: Chronic Qualifiers: [place] vs. transplanted heart: [place] heart Qualified Code(s): I25.10 - Atherosclerotic heart disease of [place] coronary artery without angina pectoris (5) Mitral regurgitation: The mitral dilatation was moderate by echocardiogram in February. Specific intervention at this point. We will continue the current measures. Status: Acute Qualifiers: Cardiac valve disease etiology: nonrheumatic Qualified Code(s): I34.0 - Nonrheumatic mitral (valve) insufficiency (6) Dyslipidemia: Patient may continue on the current medications, if the liver enzymes are staying in the normal range Status: Chronic (7) Benign essential HTN: Currently the blood pressure is in the normal range. May continue on the current medications. Status: Chronic (8) Type 2 diabetes mellitus with hyperglycemia: We will continue to optimize the medications. Status: Chronic Qualifiers: Diabetes mellitus penitentiary insulin use: without emt intermediate use Qualified Code(s): E11.65 - Type 2 diabetes mellitus with hyperglycemia Additional A&P Information Other problems are Renal insufficiency Leukocytosis, trending down. Lasix 40 mg p.o. with the potassium 20 mEq p.o. daily Attestations Medical Necessity Statement*: Care expected to cross 2 midnights Coding Level of Care Code Acute [employer]er for [facility] Fwd Diagnoses Acute cholecystitis K81.0 Acute on chronic diastolic (congestive) heart failure I50.33 SOB (shortness of breath) R06.02 Atherosclerotic heart disease of [place] coronary artery without angina pectoris I25.10 [place] vs. transplanted heart: [place] heart Mitral regurgitation I34.0 Cardiac valve disease etiology: nonrheumatic Dyslipidemia E78.5 Benign essential HTN I10 Type 2 diabetes mellitus with hyperglycemia E11.65 Diabetes mellitus penitentiary insulin use: without emt intermediate use
[2020-07-28 10:55] LABS: Glucose Point of Care 341 mg/dL (70-110)
[2020-07-28] MEDS: enoxaparin 30 mg/0.3 mL Syringe SUBCUT (11:38)
[2020-07-28 13:33] VITALS: BP 134/69
== END 2020-07-28 13:00 | disposition home or self-care (01) | DRG 444 ==
LOC: ER 06:54 → MEDSURG 10:21
PROVIDERS: Internal Medicine Cardiovascular Disease; Surgery; Admitting Provider Internal Medicine; Emergency Provider Emergency Medicine; PCP Nurse Practitioner; Visit Provider Internal Medicine
DX: K81.0 Acute cholecystitis (principal); I50.33 Acute on chronic diastolic (congestive) heart failure; I13.0 Hypertensive heart and chronic kidney disease with heart failure and stage 1 through stage 4 chronic kidney disease, or unspecified chronic kidney disease; E87.1 Hypo-osmolality and hyponatremia; I25.10 Atherosclerotic heart disease of native coronary artery without angina pectoris; Z95.5 Presence of coronary angioplasty implant and graft; Z95.1 Presence of aortocoronary bypass graft; N18.30 Chronic kidney disease, stage 3 unspecified; E11.22 Type 2 diabetes mellitus with diabetic chronic kidney disease; I65.23 Occlusion and stenosis of bilateral carotid arteries; K21.9 Gastro-esophageal reflux disease without esophagitis; E11.65 Type 2 diabetes mellitus with hyperglycemia; E11.40 Type 2 diabetes mellitus with diabetic neuropathy, unspecified; E11.51 Type 2 diabetes mellitus with diabetic peripheral angiopathy without gangrene; E78.5 Hyperlipidemia, unspecified; I34.0 Nonrheumatic mitral (valve) insufficiency; F43.10 Post-traumatic stress disorder, unspecified; Z87.11 Personal history of peptic ulcer disease; E55.9 Vitamin D deficiency, unspecified; E86.0 Dehydration; D69.6 Thrombocytopenia, unspecified; Z79.4 Long term (current) use of insulin
CPT/HCPCS: 12345; 36415; 36416; 74177; 74181; 76705; 80053; 81003; 82274; 82962; 83605; 83690; 83735; 83880; 84100; 84484; 85025; 85610; 87040; 87493; 93005; 96372; 96375; 97110; 97116; 97161; 99283; C9113; J0744; J1650; J1815; J2270; J2405; J3420; J3475; Q9967; S0030

== ENCOUNTER 2020-07-31 10:21 | Outpatient (CLI) | payer MEDICARE, SELFPAY ==
[2020-07-31 11:38] LABS: Basophils % 0.4 %; Eosinophils # 0.1 10^3/uL (0.0-0.8); Eosinophils % 1.1 %; Hematocrit 45.2 % (42.0-52.0); Lymphocytes # 1.9 10^3/uL (0.8-4.8); Lymphocytes % 18.6 %; Mean Corpuscular Hemoglobin 29.3 pg (28.0-34.0); Mean Corpuscular Volume 94.6 fL (80-94); Mean Platelet Volume 11.4 fL (7.4-10.4); Monocytes # 0.6 10^3/uL (0.2-0.9); Monocytes % 5.8 %; Neutrophils # 7.33 10^3/uL (1.8-7.7); Neutrophils % 73.7 %; Nucleated Red Blood Cells % 0 %; Platelet Count 278 10^3/cmm (130-400); Red Blood Count 4.78 10^6/uL (4.1-5.3); Red Cell Distribution Width 14.2 % (12.1-15.1)
[2020-07-31 11:46] LABS: Alanine Aminotransferase 23 U/L (0-41); Albumin Level 2.9 g/dL (3.5-5.2); Alkaline Phosphatase 105 IU/L (40-130); Anion Gap 18.5 (5-19); Aspartate Amino Transferase 41 U/L (0-40); Blood Urea Nitrogen 23 mg/dL (8-23); Carbon Dioxide 23 mmol/L (22-29); Chloride 99 mmol/L (98-107); Chol HDL Ratio 2.48 mg/dL (1.0-5.00); Cholesterol 52 mg/dL (0-200); Globulin 3.6 g/dL (1.3-4.6); Glucose 166 mg/dL (65-115); HDL Cholesterol 21 mg/dL (60-100); LDL Cholesterol Calculated 14 mg/dL (50-129); LDL HDL Ratio 0.67 RATIO (0.00-3.22); Osmolality Calculated 289 mOsm/kg (285-295); Potassium 4.5 mmol/L (3.5-5.1); Sodium 136 mmol/L (136-145); Total Bilirubin 0.4 mg/dL (0.15-1.2); Total Protein 6.5 g/dL (6.6-8.7); Triglycerides 84 mg/dL (0-150)
== END 2020-07-31 10:22 | disposition home or self-care (01) ==
PROVIDERS: Internal Medicine Cardiovascular Disease; PCP Nurse Practitioner; Visit Provider Internal Medicine
DX: K81.0 Acute cholecystitis (principal); E78.5 Hyperlipidemia, unspecified
CPT/HCPCS: 36415; 80053; 80061; 85025

== ENCOUNTER → 2020-08-08 14:11 | Outpatient (BNVA) | payer MEDICARE, SELFPAY | PROVIDERS: PCP Nurse Practitioner; Visit Provider Internal Medicine Cardiovascular Disease | DX: I50.33 Acute on chronic diastolic (congestive) heart failure (principal) | CPT/HCPCS: 80048; 83880 ==

== ENCOUNTER → 2020-08-22 09:19 | Outpatient (BNVA) | payer MEDICARE, SELFPAY | PROVIDERS: PCP Nurse Practitioner; Visit Provider Internal Medicine Cardiovascular Disease | DX: E11.65 Type 2 diabetes mellitus with hyperglycemia (principal); E53.8 Deficiency of other specified B group vitamins; E55.9 Vitamin D deficiency, unspecified; E78.5 Hyperlipidemia, unspecified; I35.8 Other nonrheumatic aortic valve disorders; I21.4 Non-ST elevation (NSTEMI) myocardial infarction; I25.110 Atherosclerotic heart disease of native coronary artery with unstable angina pectoris; I34.0 Nonrheumatic mitral (valve) insufficiency; I50.33 Acute on chronic diastolic (congestive) heart failure; N18.30 Chronic kidney disease, stage 3 unspecified | CPT/HCPCS: 80048; 83880 ==

== ENCOUNTER → 2020-09-02 09:28 | Outpatient (BNVA) | payer MEDICARE, SELFPAY | PROVIDERS: PCP Nurse Practitioner; Visit Provider Internal Medicine Cardiovascular Disease | DX: I35.8 Other nonrheumatic aortic valve disorders (principal); I50.33 Acute on chronic diastolic (congestive) heart failure; E78.5 Hyperlipidemia, unspecified | CPT/HCPCS: 80048; 83880 ==

== ENCOUNTER → 2020-12-17 08:09 | Outpatient (BNVA) | payer MEDICARE, SELFPAY | PROVIDERS: PCP Nurse Practitioner; Visit Provider Nurse Practitioner | DX: E11.65 Type 2 diabetes mellitus with hyperglycemia (principal); E53.8 Deficiency of other specified B group vitamins; I10 Essential (primary) hypertension; E55.9 Vitamin D deficiency, unspecified; E78.5 Hyperlipidemia, unspecified | CPT/HCPCS: 80053; 80061; 82306; 83036 ==

== ENCOUNTER → 2020-12-19 10:10 | Outpatient (BNVA) | payer MEDICARE, SELFPAY | PROVIDERS: PCP Nurse Practitioner; Visit Provider Nurse Practitioner | DX: E11.65 Type 2 diabetes mellitus with hyperglycemia (principal); E78.5 Hyperlipidemia, unspecified; Z79.4 Long term (current) use of insulin; F43.10 Post-traumatic stress disorder, unspecified | CPT/HCPCS: 81003; 87077; 87086; 87184 ==

== ENCOUNTER → 2020-12-31 11:29 | Outpatient (BNVA) | payer MEDICARE, SELFPAY | PROVIDERS: PCP Nurse Practitioner; Visit Provider Nurse Practitioner | DX: R82.90 Unspecified abnormal findings in urine (principal); Z22.322 Carrier or suspected carrier of Methicillin resistant Staphylococcus aureus; E11.65 Type 2 diabetes mellitus with hyperglycemia; Z79.4 Long term (current) use of insulin | CPT/HCPCS: 81000; 87077; 87086; 87184 ==

== ENCOUNTER → 2021-01-09 10:54 | Outpatient (BNVA) | payer MEDICARE, SELFPAY | PROVIDERS: PCP Nurse Practitioner; Visit Provider Nurse Practitioner | DX: R82.90 Unspecified abnormal findings in urine (principal) | CPT/HCPCS: 81000 ==

== ENCOUNTER → 2021-03-18 10:05 | Outpatient (BNVA) | payer MEDICARE, SELFPAY | PROVIDERS: PCP Nurse Practitioner; Visit Provider Nurse Practitioner | DX: E11.65 Type 2 diabetes mellitus with hyperglycemia (principal); Z79.4 Long term (current) use of insulin; I25.110 Atherosclerotic heart disease of native coronary artery with unstable angina pectoris | CPT/HCPCS: 80053; 80061; 81000; 82043; 82607; 83036 ==

== ENCOUNTER → 2021-03-26 09:18 | Outpatient (BNVA) | payer MEDICARE, SELFPAY | PROVIDERS: PCP Nurse Practitioner; Visit Provider Nurse Practitioner | DX: E11.65 Type 2 diabetes mellitus with hyperglycemia (principal); Z79.4 Long term (current) use of insulin; M79.609 Pain in unspecified limb; M54.9 Dorsalgia, unspecified | CPT/HCPCS: 72072; 72100; 73502; 73522 ==

== ENCOUNTER → 2021-07-01 10:30 | Outpatient (BNVA) | payer MEDICARE, SELFPAY | PROVIDERS: PCP Nurse Practitioner; Visit Provider Nurse Practitioner | DX: E11.65 Type 2 diabetes mellitus with hyperglycemia (principal); Z79.4 Long term (current) use of insulin; I10 Essential (primary) hypertension | CPT/HCPCS: 80053; 81000; 83036 ==

== ENCOUNTER → 2021-09-29 10:12 | Outpatient (BNVA) | payer OTHER, SELFPAY | PROVIDERS: PCP Nurse Practitioner; Visit Provider Nurse Practitioner | DX: E11.65 Type 2 diabetes mellitus with hyperglycemia (principal); E78.5 Hyperlipidemia, unspecified; I25.10 Atherosclerotic heart disease of native coronary artery without angina pectoris; I13.0 Hypertensive heart and chronic kidney disease with heart failure and stage 1 through stage 4 chronic kidney disease, or unspecified chronic kidney disease; I50.33 Acute on chronic diastolic (congestive) heart failure; N18.30 Chronic kidney disease, stage 3 unspecified; R06.02 Shortness of breath; Z79.4 Long term (current) use of insulin | CPT/HCPCS: 80053; 80061; 81000; 82043; 83036; 83880 ==

== ENCOUNTER 2021-12-11 08:09 | Outpatient (CLI) | payer MEDICARE, SELFPAY ==
--- NOTE | 2021-12-11 08:30 | USCV_ITS ---
Oscar Telles Age: 81 Gender: M : 1940 Exam Date: 12/11/2021 08:38 Ordering Phys: Rosario Girard MD ([email or web address]) Technologist: QI Exam Location: [facility] – [place] Indication: dyspnea BP: 110 / 55 HR: 61 Rhythm: Sinus Technical Quality: Adequate MEASUREMENTS (Male / Female) Normal Values 2D ECHO LV Diastolic Diameter PLAX 4.4 cm 4.2 - 5.9 / 3.9 - 5.3 cm LV Systolic Diameter PLAX 3.0 cm IVS Diastolic Thickness 1.8 cm 0.6 - 1.0 / 0.6 - 0.9 cm IVS Systolic Thickness 2.0 cm LVPW Diastolic Thickness 1.2 cm 0.6 - 1.0 / 0.6 - 0.9 cm LVPW Systolic Thickness 1.5 cm LVOT Diameter 2.0 cm LV Ejection Fraction 2D Teich 60.7 % LV Ejection Fraction MOD 2C 61.7 % LV Ejection Fraction 2C AL 65.8 % LA Diameter 3.4 cm LA Width 3.4 cm LA Height 5.5 cm RA Width 3.3 cm RA Height 4.9 cm Aorta at Sinotubular Diameter 2.3 cm M-MODE Aortic Annulus Diameter 3.0 cm LA Ao Ratio MM 1.0 MV E Point Septal Separation 1.3 cm DOPPLER AV Peak Velocity 193.0 cm/s LVOT Peak Velocity 111.0 cm/s AV Area Cont Eq vti 2.2 cm squared AV Area Cont Eq pk 1.8 cm squared MV Peak Velocity 120.0 cm/s MV Area PHT 2.0 cm squared Mitral E to A Ratio 0.7 MV E' Velocity 37.5 cm/s Mitral E to MV E' Ratio 9.5 Mitral E to LV E' Lateral Ratio 7.6 Mitral E to LV E' Septal Ratio 12.8 TR Peak Velocity 259.9 cm/s TR Peak Gradient 27.0 mmHg TR Mean Velocity 173.1 cm/s TR Mean Gradient 14.0 mmHg TR Velocity Time Integral 59.9 cm TV Peak E Velocity 49.0 cm/s Right Atrial Pressure 3.0 mmHg Pulmonary Artery Systolic Pressu 30.0 mmHg PV Peak Velocity 126.0 cm/s RV Acceleration Time 0.1 s RV Ejection Time 0.3 s RV AcT/ET 0.4 FINDINGS Left Ventricle Normal left ventricular size and systolic function, EF 64 %. Mild left ventricular hypertrophy. Grade I/IV diastolic dysfunction (abnormal relaxation filling pattern), normal to mildly elevated filling pressures. Right Ventricle The right ventricle is normal in size and function. Right Atrium The right atrium is normal in size. Left Atrium Mildly increased left atrial size. Mitral Valve Thickened mitral valve. Mild-moderate mitral valve regurgitation. Aortic Valve Thickened aortic valve. Tricuspid Valve Mild tricuspid valve regurgitation. Pulmonic Valve Trace pulmonary valve regurgitation. Pericardium Normal pericardium without effusion. Aorta Normal ascending aorta dimension. CONCLUSIONS Normal left ventricular size and systolic function, EF 64 %. Mild left ventricular hypertrophy. Grade I/IV diastolic dysfunction (abnormal relaxation filling pattern), normal to mildly elevated filling pressures. Thickened mitral valve. Mild-moderate mitral valve regurgitation. Thickened aortic valve. Mild tricuspid valve regurgitation. Trace pulmonary valve regurgitation. There is no pericardial effusion. There are no intracardiac masses. Compared to the study from 02/15/2020, left ventricular ejection fraction has improved Dr Rosario Girard MD FAC (Electronically Signed) Final Date: 13 December 2021 08:54 S
== END 2021-12-11 08:10 | disposition home or self-care (01) ==
PROVIDERS: PCP Nurse Practitioner; Visit Provider Internal Medicine Cardiovascular Disease
DX: R06.00 Dyspnea, unspecified; I08.3 Combined rheumatic disorders of mitral, aortic and tricuspid valves
CPT/HCPCS: 93306

== ENCOUNTER → 2021-12-22 12:22 | Outpatient (BNVA) | payer MEDICARE, SELFPAY | PROVIDERS: PCP Nurse Practitioner; Visit Provider Nurse Practitioner | DX: E11.65 Type 2 diabetes mellitus with hyperglycemia (principal); Z79.4 Long term (current) use of insulin; E78.5 Hyperlipidemia, unspecified; I25.10 Atherosclerotic heart disease of native coronary artery without angina pectoris; F43.10 Post-traumatic stress disorder, unspecified | CPT/HCPCS: 80053; 80061; 81000; 83036 ==

== ENCOUNTER → 2022-01-05 15:09 | Outpatient (BNVA) | payer MEDICARE, MEDICAID, SELFPAY | PROVIDERS: PCP Nurse Practitioner; Visit Provider Internal Medicine Cardiovascular Disease | DX: I25.110 Atherosclerotic heart disease of native coronary artery with unstable angina pectoris (principal); I95.1 Orthostatic hypotension; E78.5 Hyperlipidemia, unspecified; I34.0 Nonrheumatic mitral (valve) insufficiency; I13.0 Hypertensive heart and chronic kidney disease with heart failure and stage 1 through stage 4 chronic kidney disease, or unspecified chronic kidney disease; E11.22 Type 2 diabetes mellitus with diabetic chronic kidney disease; N18.30 Chronic kidney disease, stage 3 unspecified; I50.33 Acute on chronic diastolic (congestive) heart failure; Z79.4 Long term (current) use of insulin | CPT/HCPCS: 99214 ==

== ENCOUNTER → 2022-03-16 12:14 | Outpatient (BNVA) | payer MEDICARE, MEDICAID, SELFPAY | PROVIDERS: PCP Nurse Practitioner; Visit Provider Nurse Practitioner | DX: E11.65 Type 2 diabetes mellitus with hyperglycemia (principal); Z79.4 Long term (current) use of insulin | CPT/HCPCS: 80053; 81000; 83036 ==

== ENCOUNTER → 2022-07-08 11:07 | Outpatient (BNVA) | payer MEDICARE, SELFPAY | PROVIDERS: PCP Nurse Practitioner; Visit Provider Internal Medicine Cardiovascular Disease | DX: I13.0 Hypertensive heart and chronic kidney disease with heart failure and stage 1 through stage 4 chronic kidney disease, or unspecified chronic kidney disease (principal); E11.22 Type 2 diabetes mellitus with diabetic chronic kidney disease; E11.65 Type 2 diabetes mellitus with hyperglycemia; N18.30 Chronic kidney disease, stage 3 unspecified; I50.33 Acute on chronic diastolic (congestive) heart failure; Z79.4 Long term (current) use of insulin; I25.10 Atherosclerotic heart disease of native coronary artery without angina pectoris; Z95.1 Presence of aortocoronary bypass graft; I34.0 Nonrheumatic mitral (valve) insufficiency; E78.5 Hyperlipidemia, unspecified | CPT/HCPCS: 99214 ==

== ENCOUNTER → 2022-09-08 10:43 | Outpatient (BNVA) | payer MEDICARE, SELFPAY | PROVIDERS: PCP Nurse Practitioner; Visit Provider Nurse Practitioner | DX: E53.8 Deficiency of other specified B group vitamins (principal); E55.9 Vitamin D deficiency, unspecified; E11.65 Type 2 diabetes mellitus with hyperglycemia; Z79.4 Long term (current) use of insulin | CPT/HCPCS: 80053; 80061; 81000; 82306; 82607; 83036 ==

== ENCOUNTER → 2022-11-30 10:30 | Outpatient (BNVA) | payer MEDICARE, SELFPAY | PROVIDERS: PCP Nurse Practitioner; Visit Provider Nurse Practitioner | DX: E11.65 Type 2 diabetes mellitus with hyperglycemia (principal); Z79.4 Long term (current) use of insulin | CPT/HCPCS: 80053; 81000; 82043; 83036; 85025 ==

== ENCOUNTER 2023-01-13 13:30 | Emergency (ER) | payer MEDICARE, SELFPAY ==
--- NOTE | 2023-01-13 13:33 | XRR_ITS ---
PROCEDURE INFORMATION: Exam: XR Left Hand Exam date and time: 01/13/2023 1:51 PM Age: 83 years old Clinical indication: Injury or trauma; Other: Table saw; Laceration; Hand; Left; Injury date: 01/13/23 TECHNIQUE: Imaging protocol: Radiologic exam of the left hand. Views: 3 or more views. COMPARISON: No relevant prior studies available. FINDINGS: Bones/joints: Negative for acute bony abnormality. There is osteoarthritis with narrowing of the interphalangeal articulation of multiple digits. Soft tissues: Soft tissue effusion is noted with laceration in the distal tip of the 1st 2nd and 3rd digits. XR/XR hand LT min 3V* [id number] IMPRESSION: 1. Edema and lacerations distal tip 1st 2nd and 3rd digits. 2. Severe osteoarthritis. 3. Otherwise negative examination
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
[2023-01-13] MEDS: ceFAZolin 1,000 mg SDV 1000 MG IVP (14:01)
[2023-01-13] MEDS: tetanus-dipt-pertussis 0.5 mL SDV IM (14:02)
[2023-01-13] MEDS: water for injection-sterile SDV 10 mL XX (14:03)
--- NOTE | 2023-01-13 15:31 | DCPLANNER ---
Addendum entered by Yasemin Carrillo 01/19/23 11:52: Patient had a followup appointment scheduled at [facility] - patient did attend appointment Patient had a follow up appointment scheduled with wound care - patient did attend appointment. Original Note: manager mining was asked to schedule a follow up appointment for patient with Wound Care, ER physician would like appointment for 01.14.23. manager mining called Wound Care, spoke with Teresa, a follow up appointment was scheduled for Sunday, January 15, 2023 at 8:[address] Newman. manager mining also scheduled a follow up appointment for patient with his primary care physician, Martínez Diehl at the [facility] for January at 10:00. Patient is aware of both appointments.
[2023-01-13 15:38] VITALS: BP 191/81; PULSE 56; O2SAT 96
== END 2023-01-13 17:21 | disposition home or self-care (01) ==
PROVIDERS: Emergency Provider Family Medicine; PCP Nurse Practitioner
DX: S61.211A Laceration without foreign body of left index finger without damage to nail, initial encounter (principal); S61.012A Laceration without foreign body of left thumb without damage to nail, initial encounter; S61.213A Laceration without foreign body of left middle finger without damage to nail, initial encounter; Z79.4 Long term (current) use of insulin; E11.22 Type 2 diabetes mellitus with diabetic chronic kidney disease; I13.0 Hypertensive heart and chronic kidney disease with heart failure and stage 1 through stage 4 chronic kidney disease, or unspecified chronic kidney disease; N18.9 Chronic kidney disease, unspecified; I50.33 Acute on chronic diastolic (congestive) heart failure; E78.5 Hyperlipidemia, unspecified; Z95.1 Presence of aortocoronary bypass graft; W27.0XXA Contact with workbench tool, initial encounter; Z23 Encounter for immunization
CPT/HCPCS: 73130; 90471; 90715; 96374; 96375; 99284; J0690

== ENCOUNTER → 2023-01-15 07:57 | Outpatient (BNVA) | payer MEDICARE, SELFPAY | PROVIDERS: PCP Nurse Practitioner; Visit Provider Thoracic Surgery (Cardiothoracic Vascular Surgery) | DX: I96 Gangrene, not elsewhere classified (principal); S61.213D Laceration without foreign body of left middle finger without damage to nail, subsequent encounter; S61.012D Laceration without foreign body of left thumb without damage to nail, subsequent encounter; S61.211D Laceration without foreign body of left index finger without damage to nail, subsequent encounter; W27.0XXD Contact with workbench tool, subsequent encounter | CPT/HCPCS: 11042; 97597; 99213 ==

== ENCOUNTER → 2023-01-20 11:31 | Outpatient (BNVA) | payer MEDICARE, SELFPAY | PROVIDERS: PCP Nurse Practitioner; Visit Provider Internal Medicine Cardiovascular Disease | DX: I25.110 Atherosclerotic heart disease of native coronary artery with unstable angina pectoris (principal); I34.0 Nonrheumatic mitral (valve) insufficiency; E78.5 Hyperlipidemia, unspecified; I95.1 Orthostatic hypotension; I13.0 Hypertensive heart and chronic kidney disease with heart failure and stage 1 through stage 4 chronic kidney disease, or unspecified chronic kidney disease; E11.22 Type 2 diabetes mellitus with diabetic chronic kidney disease; E11.65 Type 2 diabetes mellitus with hyperglycemia; N18.9 Chronic kidney disease, unspecified; I50.33 Acute on chronic diastolic (congestive) heart failure; Z79.4 Long term (current) use of insulin | CPT/HCPCS: 99214 ==

== ENCOUNTER → 2023-01-22 08:56 | Outpatient (BNVA) | payer MEDICARE, SELFPAY | PROVIDERS: PCP Nurse Practitioner; Visit Provider Thoracic Surgery (Cardiothoracic Vascular Surgery) | DX: I96 Gangrene, not elsewhere classified (principal); S61.213D Laceration without foreign body of left middle finger without damage to nail, subsequent encounter; S61.211D Laceration without foreign body of left index finger without damage to nail, subsequent encounter; S61.012D Laceration without foreign body of left thumb without damage to nail, subsequent encounter; W27.0XXD Contact with workbench tool, subsequent encounter | CPT/HCPCS: 11042; 97597; A6021 ==

== ENCOUNTER 2023-01-30 02:51 | Observation (INO) | payer MEDICARE, SELFPAY ==
[2023-01-30] VITALS (118 sets, daily range): BP systolic 103–168; BP diastolic 61–108; PULSE 53–83; RESP 12–31; TEMP 36.7–36.8; O2SAT 89–98; BMI 22.8
--- NOTE | 2023-01-30 02:54 | ECG_ITS ---
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 Measurements Intervals [place] Rate: 78 P: 0 PA: 0 QRS: -3 QRSD: 106 T: 74 QT: 364 QTc: 417 Interpretive Statements ATRIAL FLUTTER NONSPECIFIC ST & T-WAVE ABNORMALITY ABNORMAL RHYTHM ECG Compared to ECG 07/21/2020 20:15:50 Sinus rhythm no longer present T-wave abnormality still present Electronically Signed On 01-30-2023 6:51:46 CDT by Mp Martínez M.D. [id number]
--- NOTE | 2023-01-30 02:54 | XRR_ITS ---
PROCEDURE INFORMATION: Exam: XR Chest Exam date and time: 01/30/2023 3:28 AM Age: 83 years old Clinical indication: Pain; Chest pressure; Prior surgery; Surgery date: 6+ months; Surgery type: Cabg; Additional info: Cp TECHNIQUE: Imaging protocol: Radiologic exam of the chest. Views: 1 view. COMPARISON: CR XR chest 1V portable [id number] 02/14/2020 6:22 PM FINDINGS: Lungs: Mild COPD. No consolidation. Pleural spaces: Unremarkable. No pleural effusion. No pneumothorax. Heart/Mediastinum: CABG and diffuse vascular calcification. Heart is normal size. Bones/joints: Unremarkable. XR/XR chest 1V portable [id number] IMPRESSION: No acute findings.
--- NOTE | 2023-01-30 03:03 | W.ED.CHESTPA ---
HPI - Chest Pain General: Chief Complaint: Chest Pain Stated Complaint: CP Time Seen by Provider: 01/30/23 02:54 Source: patient Mode of arrival: ambulatory Limitations: no limitations History of Present Illness: 83-year-old male who is here by EMS with chest pain. He states he woke up roughly 2 hours ago with a pressure type pain in the center of his chest he has had extensive cardiac history states he took nitro at home he did have Nitropaste states his pains improved he just has a very mild pressure now he rates a 1 out of 10 he states radiated up to his neck he denies any shortness of breath denies any nausea or diaphoresis. He is resting comfortably at this time. Associated symptoms: Deny abdominal pain, dyspnea, fever(s), nausea or vomiting Review of Systems Const: Denies: fever(s) or chills Eyes: Denies: blurry vision or eye discomfort ENMT: Denies: throat pain or dental pain Card: Reports: chest pain Resp: Denies: dyspnea GI: Denies: abdominal pain, nausea, vomiting or diarrhea : Denies: dysuria Musc: Denies: neck pain or back pain Skin/Breast: Denies: rash Neuro: Denies: headache(s) Psych: Denies: depression Jonatan/Lymph: Denies: easy bruising All/Imm: Denies: urticaria PFSH ED PFSH: Medical History Acute on chronic diastolic (congestive) heart failure Acute on chronic diastolic (congestive) heart failure Aortic heart murmur Atherosclerotic heart disease of [place] coronary artery with unstable angina pectoris Most recent intervention February 2020 medicated stent secondary to in-stent vein graft to diagonal and obtuse marginal stenosis Atherosclerotic heart disease of [place] coronary artery without angina pectoris B12 deficiency Benign essential HTN Carotid artery stenosis Less than 50% stenosis bilateral ICA moderate lateral mentis plaque Chronic gastroesophageal reflux disease Chronic kidney disease (CKD) Diabetes mellitus with neuropathy Dyslipidemia Mitral regurgitation PAD (peripheral artery disease) PTSD (post-traumatic stress disorder) [place] (peptic ulcer disease) Type 2 diabetes mellitus with hyperglycemia Vitamin D insufficiency Surgical History H/O cardiac catheterization At [facility] in 2014 no revascularizable lesion was managed medically History of appendectomy History of coronary artery stent placement 2012 Found to have three-vessel coronary disease high-grade lesion in venous graft to the obtuse marginal, [place] to the LAD was found to be patent, underwent PCI of the venous graft, History of percutaneous coronary intervention [place]: June Saphenous venous graft to obtuse marginal 1 and 2 History of umbilical hernia repair 1984 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 Family History Brother Bleeding disorder Diabetes Father CAD (coronary artery disease) Mother CAD (coronary artery disease) Diabetes Sister Diabetes Other Heart disease Hypertension Denies family history of Clotting disorder Dementia Chronic kidney disease (CKD) Suicide Anesthesia complication Lung disease Cancer Stroke Social History Smoking and tobacco status: never smoked Second hand smoke exposure: No Smoking risk assessment/counseling performed?: No Alcohol intake: never Desire information about alcohol rehabilitation?: No Counseling given: No Substance/Drug Use: never Desire information about substance/drug rehabilitation?: No Counseling given: No Caregiver/support person: No Lives independently: Yes Household members: spouse Housing: House Marital status: Number of children: 4 Number of grandchildren: 20 service: No Pets and animals: Yes Pets & animals: cat(s) Do you think of yourself as: Straight/Heterosexual Current gender identity: Male Physical Exam Const: COMMON NORMALS: patient oriented x3 HENMT: COMMON NORMALS: normocephalic and atraumatic HEAD & SCALP: normocephalic and atraumatic Eye: COMMON NORMALS: Equal, round and reactive pupils present and EOMs intact bilaterally PUPIL: Yes Equal, round and reactive pupils present Neck/C-Spine: COMMON NORMALS: full ROM and supple Chest: COMMONS NORMALS: normal inspection of the chest and normal palpation of entire chest wall Resp: COMMON NORMALS: normal respiratory effort, No retractions, No use of accessory muscles and clear to auscultation bilaterally AUSCULTATION: clear to auscultation bilaterally Cardio: COMMON NORMALS: regular rate, regular rhythm and No murmurs present (Cardio) RATE: regular rate RHYTHM: regular rhythm GI: COMMON NORMALS: Normal to inspection, nondistended, normoactive bowel sounds present, Soft to palpation, non-tender and no masses PALPATION: Yes Soft to palpation Extremity: COMMON NORMALS: normal to inspection and full ROM Neuro: COMMON NORMALS: patient oriented x3, moves all extremities and no focal motor deficits Psych: COMMON NORMALS: mental status grossly normal, Normal thought process present and cooperative THOUGHT PROCESS: Normal thought process present Skin: COMMON NORMALS: no rashes or lesions noted and no wounds GENERAL SKIN EXAM: no rashes or lesions noted Course Vital Signs: Vital signs: Vital Signs Temperature 98.2 F 01/30/23 02:52 Pulse Rate 71 01/30/23 03:10 Respiratory Rate 18 01/30/23 03:10 Blood Pressure 144/108 01/30/23 03:10 Pulse Oximetry 98 01/30/23 03:10 Oxygen Delivery Me thod Room Air 01/30/23 03:10 MDM - Chest Pain Medical Decision Making Patient presents with chest pain as a pressure type pain that was relieved with nitro is extensive cardiac history as her troponin here is normal he has been pain-free here did speak to the hospitalist will admit for observation for chest pain rule out Medical Records I reviewed the patient's medical records. Lab Data I reviewed the patient's lab results. 01/30/23 03:10 01/30/23 03:10 Laboratory Results WBC 8.6 10^3/uL (4.0-10.0) 01/30/23 03:10 RBC 4.81 10^6/uL (4.1-5.3) 01/30/23 03:10 Hgb 14.6 g/dL (11.7-16.6) 01/30/23 03:10 Hct 45.3 % (42.0-52.0) 01/30/23 03:10 MCV 94.2 fl (80-94) H 01/30/23 03:10 MCH 30.4 pg (28.0-34.0) 01/30/23 03:10 MCHC 32.2 g/dL (30.0-36.0) 01/30/23 03:10 RDW 13.4 % (12.1-15.1) 01/30/23 03:10 Plt Count 149 10^3/cmm (130-400) 01/30/23 03:10 MPV 11.2 fL (7.4-10.4) H 01/30/23 03:10 Neut % (Auto) 52.1 % 01/30/23 03:10 Lymph % (Auto) 36.8 % 01/30/23 03:10 [place] % (Auto) 8.2 % 01/30/23 03:10 Eos % (Auto) 1.9 % 01/30/23 03:10 Baso % (Auto) 0.6 % 01/30/23 03:10 Neut # (Auto) 4.48 10^3/uL (1.8-7.7) 01/30/23 03:10 Lymph # (Auto) 3.2 10^3/uL (0.8-4.8) 01/30/23 03:10 [place] # (Auto) 0.7 10^3/uL (0.2-0.9) 01/30/23 03:10 Eos # (Auto) 0.2 10^3/uL (0.0-0.8) 01/30/23 03:10 Baso # (Auto) 0.1 10^3/uL (0.0-0.1) 01/30/23 03:10 Nucleated RBC % (auto) 0 % 01/30/23 03:10 Nucleated RBCs # 0.0 /100WBC 01/30/23 03:10 Sodium 139 mmol/L (136-145) 01/30/23 03:10 Potassium 3.9 mmol/L (3.5-5.1) 01/30/23 03:10 Chloride 105 mmol/L (98-107) 01/30/23 03:10 Carbon Dioxide 23 mmol/L (22-29) 01/30/23 03:10 Anion Gap 14.9 (5-19) 01/30/23 03:10 BUN 19 mg/dL (8-23) 01/30/23 03:10 Creatinine 0.9 mg/dL (0.7-1.2) 01/30/23 03:10 GFR Calculation Not Reportable 01/30/23 03:10 Glucose 99 mg/dL (65-115) 01/30/23 03:10 Calculated Osmolality 290 mOsm/kg (285-295) 01/30/23 03:10 Calcium 8.9 mg/dL (8.5-10.5) 01/30/23 03:10 Total Bilirubin 0.9 mg/dL (0.15-1.2) 01/30/23 03:10 AST 22 U/L (0-40) 01/30/23 03:10 ALT 22 U/L (0-41) 01/30/23 03:10 Alkaline Phosphatase 90 U/L (40-130) 01/30/23 03:10 Troponin T Baseline 17 ng/L (0-15) H 01/30/23 03:10 NT-Pro-B Natriuret Pep 405 pg/mL (0-450) 01/30/23 03:10 Total Protein 6.6 g/dL (6.6-8.7) 01/30/23 03:10 Albumin 3.9 g/dL (3.5-5.2) 01/30/23 03:10 Globulin 2.7 g/dL (1.3-4.6) 01/30/23 03:10 Discharge Plan Discharge Patient Disposition: Placed in Observation Admit Provider: Cristiana Beverly Clinical Impression: Chest pain Condition: Stable Coding Level of Care Code ED Beverage Manager for Izzy Deleon
[2023-01-30 03:18] LABS: Basophils # 0.1 10^3/uL (0.0-0.1); Basophils % 0.6 %; Eosinophils # 0.2 10^3/uL (0.0-0.8); Eosinophils % 1.9 %; Hematocrit 45.3 % (42.0-52.0); Hemoglobin 14.6 g/dL (11.7-16.6); Lymphocytes # 3.2 10^3/uL (0.8-4.8); Lymphocytes % 36.8 %; Mean Corpuscular HGB Conc 32.2 g/dL (30.0-36.0); Mean Corpuscular Hemoglobin 30.4 pg (28.0-34.0); Mean Corpuscular Volume 94.2 fl (80-94); Mean Platelet Volume 11.2 fL (7.4-10.4); Monocytes # 0.7 10^3/uL (0.2-0.9); Monocytes % 8.2 %; Neutrophils # 4.48 10^3/uL (1.8-7.7); Neutrophils % 52.1 %; Nucleated Red Blood Cells % 0 %; Platelet Count 149 10^3/cmm (130-400); Red Blood Count 4.81 10^6/uL (4.1-5.3); Red Cell Distribution Width 13.4 % (12.1-15.1); White Blood Count 8.6 10^3/uL (4.0-10.0)
[2023-01-30 03:36] LABS: Troponin(5th) Baseline 17 ng/L (0-15)
[2023-01-30 03:46] LABS: Alanine Aminotransferase 22 U/L (0-41); Albumin Level 3.9 g/dL (3.5-5.2); Alkaline Phosphatase 90 U/L (40-130); Anion Gap 14.9 (5-19); Aspartate Amino Transferase 22 U/L (0-40); Blood Urea Nitrogen 19 mg/dL (8-23); Calcium 8.9 mg/dL (8.5-10.5); Carbon Dioxide 23 mmol/L (22-29); Chloride 105 mmol/L (98-107); Globulin 2.7 g/dL (1.3-4.6); Glucose 99 mg/dL (65-115); NT Pro B Type Natriuretic Pept 405 pg/mL (0-450); Osmolality Calculated 290 mOsm/kg (285-295); Potassium 3.9 mmol/L (3.5-5.1); Sodium 139 mmol/L (136-145); Total Bilirubin 0.9 mg/dL (0.15-1.2); Total Protein 6.6 g/dL (6.6-8.7)
--- NOTE | 2023-01-30 05:33 | ECG_ITS ---
[facility] Test Date: 2023-01-30 Pat Name: Oscar Telles Department: Room: 101 Gender: Male Bell Spinner: : 1940 Requested By: Chelsey Shea Order Number: [id number] Ade MD: Mp Martínez M.D. Measurements Intervals [place] Rate: 61 P: 0 MI: 0 QRS: 182 QRSD: 104 T: 112 QT: 381 QTc: 386 Interpretive Statements ATRIAL FLUTTER LATERAL MYOCARDIAL INFARCTION , OF INDETERMINATE AGE [40+ ms Q WAVE AND/OR ST/T ABNORMALITY IN I/aVL/V5/V6] Compared to ECG 01/30/2023 03:03:42 Myocardial infarct finding now present T-wave abnormality no longer present Electronically Signed On 01-30-2023 6:56:00 CDT by Mp Martínez M.D. [id number]
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
[2023-01-30 06:31] LABS: Troponin 5 2HR 25.19 ng/L (0-15)
--- NOTE | 2023-01-30 06:34 | USCV_ITS ---
Oscar Telles Age: 83 Gender: M : 1940 Exam Date: 01/30/2023 10:32 Ordering Phys: Cristiana Beverly MD Technologist: Cm Fink Exam Location: [facility] Indication: unstab ang BP: 117 / 70 HR: 56 Rhythm: Sinus Technical Quality: Adequate MEASUREMENTS (Male / Female) Normal Values 2D ECHO LV Diastolic Diameter PLAX 4.8 cm 4.2 - 5.9 / 3.9 - 5.3 cm LV Systolic Diameter PLAX 3.0 cm IVS Diastolic Thickness 1.1 cm 0.6 - 1.0 / 0.6 - 0.9 cm IVS Systolic Thickness 1.9 cm LVPW Diastolic Thickness 1.2 cm 0.6 - 1.0 / 0.6 - 0.9 cm LVPW Systolic Thickness 1.2 cm LVOT Diameter 2.1 cm LV Ejection Fraction 2D Teich 62.9 % LV Ejection Fraction MOD 2C 59.6 % LV Ejection Fraction 2C AL 59.3 % LA Diameter 4.4 cm IVC Diameter 2.1 cm M-MODE RV Diastolic Diameter MM 3.3 cm Aortic Annulus Diameter 3.4 cm LA Ao Ratio MM 1.3 MV E Point Septal Separation 1.4 cm DOPPLER AV Peak Velocity 193.4 cm/s LVOT Peak Velocity 82.6 cm/s AV Area Cont Eq vti 1.5 cm squared AV Area Cont Eq pk 1.4 cm squared MV Area PHT 4.3 cm squared Mitral E to A Ratio 1.2 MV E' Velocity 64.8 cm/s Mitral E to MV E' Ratio 10.6 Mitral E to LV E' Lateral Ratio 9.6 Mitral E to LV E' Septal Ratio 11.8 TR Peak Velocity 265.6 cm/s TR Peak Gradient 28.2 mmHg TV Peak E Velocity 112.8 cm/s Right Atrial Pressure 3.0 mmHg Pulmonary Artery Systolic Pressu 31.2 mmHg RV Acceleration Time 0.1 s FINDINGS Left Ventricle Normal left ventricular size, systolic function and wall thickness, with no regional wall motion abnormalities. Normal left ventricular wall thickness. Normal diastolic filling pattern. Right Ventricle The right ventricle is normal in size and function. Right Atrium The right atrium is normal in size. Left Atrium The left atrium is normal in size. Mitral Valve Structurally normal mitral valve without significant stenosis or prolapse. There is no significant mitral regurgitation. Mild MR Aortic Valve Structurally normal aortic valve without significant sclerosis or stenosis. There is no aortic regurgitation. Tricuspid Valve Structurally normal tricuspid valve without significant stenosis or regurgitation. Pulmonary artery systolic pressure is normal. Trace TR Pulmonic Valve Structurally normal pulmonic valve without significant stenosis. There is no pulmonic regurgitation. Pericardium Normal pericardium without effusion. Aorta Normal ascending aorta dimension. IVC The inferior vena cava appears normal. CONCLUSIONS Brando Pavon MD (Electronically Signed) Final Date: 30 Jan 2023 15:59 S
[2023-01-30 06:39] LABS: Troponin 5 2HR Delta 8.19 ABS# (0-10)
[2023-01-30 07:49] LABS: Estmated Average Glucose 166; Hemoglobin A1C 7.4 % (4.0-6.0)
[2023-01-30 07:59] LABS: Cholesterol 105 mg/dL (0-200); HDL Cholesterol 42 mg/dL (60-100); LDL Cholesterol Calculated 41 mg/dL (50-129); LDL HDL Ratio 0.98 RATIO (0.00-3.22); Thyroid Stimulating Hormone 3.51 uIU/mL (0.27-4.20); Triglycerides 111 mg/dL (0-150)
[2023-01-30 09:09] LABS: Glucose Point of Care 89 mg/dL (70-110)
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
[2023-01-30] MEDS: heparin 5,000 unit/mL INJ 1 mL IV (09:34)
[2023-01-30] MEDS: heparin drip 25,000 UNIT/500 ML PREMIX 20 UNIT IV (09:40)
[2023-01-30] MEDS: sodium chloride 0.9% 1,000 ML 50 ML IV (10:00)
[2023-01-30] MEDS: atorvastatin 40 mg Tablet 80 MG PO (10:00)
[2023-01-30 10:02] LABS: Troponin 5 6HR 35.63 ng/L (0-15)
[2023-01-30 10:08] LABS: Troponin 5 6HR Delta 18.63 ng/L (0-12)
--- NOTE | 2023-01-30 11:10 | ECG_ITS ---
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 Measurements Intervals [place] Rate: 80 P: 0 HI: 0 QRS: -10 QRSD: 100 T: 98 QT: 359 QTc: 416 Interpretive Statements ATRIAL FLUTTER ST DEPRESSION, CONSIDER SUBENDOCARDIAL INJURY [0.1+ mV ST DEPRESSION] Compared to ECG 01/30/2023 05:33:01 ST (T wave) deviation now present Myocardial infarct finding no longer present Electronically Signed On 01-30-2023 14:16:20 CDT by Candelaria Paredes M.D. [email or web address]
[2023-01-30 11:57] LABS: Glucose Point of Care 191 mg/dL (70-110)
--- NOTE | 2023-01-30 12:29 | XACV_ITS ---
Exam Room: 2 Ht: 175 cm Wt: 70 kg BSA: 1.85 m2 Gender: Male : 1940 Any Known Allergies: Other Exam Priority: Routine Procedure(s): Procedure Description: Diagnostic procedure Procedure Description: Miscellaneous Procedure Description: ACT Procedure Description: Coronary Angiography Procedure Description: Pressure Wire [place] GRIDER; Diagnostic Cath Status: Elective Diagnostic Findings * Angiography shows a left coronary dominant system. * Left main 100% occluded. * Left anterior descending artery and LCXnot visualized with left main injection. * Right coronary artery mid 100% occluded with right to collaterals. * [place] angiography * [place] to LAD is patent * with mild to moderate disease involving distal LAD * towards the apex * SVG to diagonal with sequential to OM * reveals * stent in the proximal part of the graft * with * 50% in-stent restenosis * distal anastomosis with diagonal and * sequential OM was noted which are patent * with moderate disease involving quechan vessels beyond the anastomosis.. * Technique of Lesion determination-IFR * . * After completion of diagnostic imaging, a left bypass guide was taken into the SVG to OM sequential to diagonal bypass graft. * After placement of the guide, an IFR wire was taken and placed just proximal to the lesion involving the SVG to OM/diagonal, and normalized following which visit wire was advanced beyond the lesion in the proximal part of the graft and spot IFR was recorded which was noted to be 0.97. * Coronary angiography shows right dominance. PCI Status: Elective Conclusions 1. Severe quechan coronary artery disease with 3 out of 3 grafts/[place] patent. 2. In-stent restenosis SVG to OM/segment sequentially diagonal with a measured FFR study with a measured IFR of 0.97. Recommendations * Continue medical management and risk factor modification. * Risk factor modification for secondary prevention. Interventional RX Recommendation: none Diagnostic RX Recommendation: none Post Op Diagnosis: Description: Unstable Angina Left Ventriculography Findings: * Left Ventriculogram not performed to minimize contrast use. Pressures Phase:Rest AO : 130 / 65 ( 91 ) @ 2:06:00 PM 130 / 77 ( 104 ) @ 2:12:00 PM 106 / 59 ( 79 ) @ 2:26:00 PM 186 / 86 ( 124 ) @ 2:31:00 PM Clinical Evaluation EBL: 5mL-10mL Procedural Details Procedure Consent Obtained. Admit Source: In Patient. Pre-Procedure Time Out. Identified patient by full name and date of as verbalized by the patient/guarantor. Does the consent match the physician's order: Yes. Accurate & Complete Informed Consent: Yes. Inpatient/Outpatient History & Physical on Chart: Yes. If H&P is completed, is and addenduem needed: No; If yes, is the addendum complete: N/A. Visualize and Verify Site with Patient/Guarantor: N/A. Relevant Radiology Images available: Yes. The risks, benefits, and alternatives of sedation and/or procedure were discussed by physician. The patient agrees to continue. Procedure started. [facility] Clinical Fraility Score: 4: Vulnerable. Product Manager Indications: unstable angina. Chest Pain Symptom Assessment: Typical Angina Symptoms. Cardiovascular Instability: No. Correct patient, site and procedure confirmed by cath team. Current diagnosis: Unstable angina. PERRLA. Strong, equal hand laser beam cutter bilaterally. Lungs clear x 5 lobes. IV Site on Arrival: 20 gauge in the left forearm. IV Fluids: 0.9% NaCl at KVO. 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 Pre Procedural Pulses: bilateral posterior tibial was 1+. Pre Procedural Pulses: bilateral dorsalis pedis was 1+. Oxygen started at 2liters/min via nasal canula. bilateral groins was prepped with chloroprep then draped in the usual sterile fashion. Baseline sample Acquired. HR: 118 BPM. Physician notified. Physician arrived. Physician scrubbed in. Immediate Pre-Procedure Time Out. Correct Patient: Yes; Correct Procedure: Yes; Correct Site: Yes; Correct Patient Position: Yes; Correct Supplies: Yes; Dried Flammable Prep: Yes; Blood Products Available: Yes;. Lidocaine 1% infiltrated to the right groin. Arterial access obtained with micropuncture set. A 6 sudan[place] JL4 catheter in over wire. Multiple views taken of quechan left coronary artery. Catheter out. A 6 sudanese JR4 catheter in over wire. Multiple views taken of quechan right coronary artery. [place] to LAD visualized. A 6 sudanese LCB catheter in over wire. 6 sudanese LCB guide catheter was inserted over the wire. SVG's to OM visualized and patent. Guide Seated in the Y Vein graft to the om/diag. FFR guidewire was advanced through the guide catheter to lesion in the y graft OM. IFR obtained. 0.97 result. Wire out. ACT drawn. Results 211 seconds. Therapeutic limits - pre-heparin administration 90-150 seconds and monitoring heparin during a vascular procedure >250 seconds. Post Procedure: Pulses reassessed and unchanged. PERRLA. Strong, equal hand laser beam cutter bilaterally. No VTE prophylaxis required. A Suture was successful obtaining hemostatsis at the Right Femoral artery insertion site. Medication's Wasted: Lidocaine 1% = 3 mL. Medication's Wasted: Heparin = 4000 units. Medication's Wasted: Other = adenosine 6 mg. Medication's Wasted: Other = versed 1 mg. Medication's Wasted: Other = fentanyl 50 mcg. Total IV fluids: 100 mL. Post-op diagnosis: Severe CAD. Complications: none. Estimated blood loss: 5mL-10mL. Responsiveness - Normal response to verbal stimuli; alert and oriented, PERRLA. Airway - Unaffected, no intervention required; spontaneous ventilation. Circulation: W/N/L, pulses unchanged. Nausea/Vomiting: No. Procedure completed. Patient transferred by bed to 1st floor. Vital chart was stopped. Catheter out. Catheter out. Access Site Site: Right Femoral artery Sheath Size: 6 Fr Hemostasis Method: Suture Hemostasis Success: Successful Complication Findings: None. Procedure Medications Start: 12:52 PM Stop: 12:52 PM Medication: Benadryl Amount: 50 mg Route: I.V. Start: 12:57 PM Stop: 12:57 PM Medication: Versed Amount: 1 mg Route: I.V. Start: 12:57 PM Stop: 12:57 PM Medication: Fentanyl Amount: 50 mcg Route: I.V. Start: 12:58 PM Stop: 12:58 PM Medication: Zofran (ondansetron) Amount: 4 mg Route: I.V. I, the attending physician, have reviewed and verified all procedure medications. Yes, all medications given per verbal order History/Risk Factors Hypertension: No Dyslipidemia: Yes Peripheral Arterial Disease (PAD): No Myocardial Infarction (VT): Yes Obesity: No Tobacco Use: Never Prior Interventions PCI: Yes CABG: Yes Valve Surgery: No Report Signatures Finalized by Brando Pavon MD on 01/30/2023 04:03 PM
--- NOTE | 2023-01-30 12:51 | PC.NURSE ---
to optical laboratory mechanic. heparin drip stopped
[2023-01-30 16:03] LABS: Partial Thromboplastin Time 40.8 SECONDS (23.9-36.7)
[2023-01-30 17:22] LABS: Glucose Point of Care 123 mg/dL (70-110)
--- NOTE | 2023-01-30 17:54 | PC.NURSE ---
Right femoral sheath is pulled at 1656. Hemostasis is obtained at 1656. Manual pressure is held x 25 minutes. Vital signs were stable for the entire 25 minutes. No hematoma is noted. A dressing of 2x2 and clear tegaderm is applied. Patient tolerated well.
[2023-01-30] MEDS: clopidogrel 75 mg Tablet PO (18:53)
[2023-01-30] MEDS: tamsulosin 0.4 mg Capsule PO (21:18)
[2023-01-30 21:26] LABS: Glucose Point of Care 246 mg/dL (70-110)
[2023-01-30] MEDS: insulin lispro 100 unit/1 mL SUBCUT (21:36)
[2023-01-31] VITALS (15 sets, daily range): BP systolic 98–152; BP diastolic 49–91; PULSE 55–91; RESP 14–19; TEMP 36.7–36.9; O2SAT 94–97
[2023-01-31 04:32] LABS: Basophils # 0.1 10^3/uL (0.0-0.1); Basophils % 0.5 %; Eosinophils # 0.2 10^3/uL (0.0-0.8); Eosinophils % 1.8 %; Hematocrit 47.4 % (42.0-52.0); Hemoglobin 14.9 g/dL (11.7-16.6); Lymphocytes # 3.1 10^3/uL (0.8-4.8); Lymphocytes % 27.4 %; Mean Corpuscular HGB Conc 31.4 g/dL (30.0-36.0); Mean Corpuscular Hemoglobin 30.5 pg (28.0-34.0); Mean Corpuscular Volume 97.1 fl (80-94); Mean Platelet Volume 11.1 fL (7.4-10.4); Monocytes # 0.9 10^3/uL (0.2-0.9); Monocytes % 7.8 %; Neutrophils # 7.04 10^3/uL (1.8-7.7); Nucleated Red Blood Cells % 0 %; Platelet Count 141 10^3/cmm (130-400); Red Blood Count 4.88 10^6/uL (4.1-5.3); Red Cell Distribution Width 13.6 % (12.1-15.1); White Blood Count 11.4 10^3/uL (4.0-10.0)
[2023-01-31 04:47] LABS: Anion Gap 13.8 (5-19); Blood Urea Nitrogen 23 mg/dL (8-23); Calcium 8.9 mg/dL (8.5-10.5); Carbon Dioxide 26 mmol/L (22-29); Chloride 103 mmol/L (98-107); Glucose 178 mg/dL (65-115); Osmolality Calculated 294 mOsm/kg (285-295); Potassium 4.8 mmol/L (3.5-5.1); Sodium 138 mmol/L (136-145)
[2023-01-31 06:35] LABS: Glucose Point of Care 186 mg/dL (70-110)
--- NOTE | 2023-01-31 07:15 | P.PN_ITS ---
Subjective Subjective: Patient tolerated procedure well No chest pain, sob overnight Discussed options with patient and family chronic management of atrial flutter including anticoagulation with outpatient cardioversion versus GERMAN guided cardioversion which patient agreeable to proceed with. No other issues reported by nursing staff. Developed AF with RVR this am Vitals/I&O/Wt Last Vital Signs Temp 98.0 F 01/31/23 00:00 Pulse 79 01/31/23 06:00 Resp 17 01/31/23 06:00 BP 144/82 01/31/23 06:00 Pulse Ox 94 01/31/23 05:00 O2 Del Method Room Air 01/30/23 08:15 01/30/23 01/31/23 01/31/23 22:59 06:59 14:59 Intake Total 120 / 516.667 970.833 / 1487.500 Output Total 950 / 1650 1000 / 2650 Balance -830 / -1133.333 -29.167 / -1162.500 Weight last 48 hrs Weight 155 lb Physical Exam Const: COMMON NORMALS: no acute distress and patient oriented x3 GENERAL APPEARANCE: cooperative and comfortable Chest: COMMONS NORMALS: normal inspection of the chest Resp: COMMON NORMALS: normal respiratory effort, No use of accessory muscles and clear to auscultation bilaterally AUSCULTATION: clear to auscultation bilaterally Cardio: COMMON NORMALS: regular rate, regular rhythm (Irregular), S1 normal heart sound present, S2 normal heart sound present, No gallops present (Cardio) and No murmurs present (Cardio) JUGULAR VENOUS DISTENTION: no JVD RATE: regular rate RHYTHM: regular rhythm (Irregular) HEART SOUNDS: S1 normal heart sound present and S2 normal heart sound present Extremity: COMMON NORMALS: normal to inspection and no pedal edema Neuro: COMMON NORMALS: patient oriented x3 Data 01/31/23 03:20 01/31/23 03:20 A&P Assessment and plan (1) Unstable angina: * Coronary angiography results discussed with the patient and reassured at this time to continue with medical management. * Will optimize antianginal regimen to prevent further episodes of chest discomfort as reported on his initial presentation. * Will add Imdur 30 g p.o. once a day. * As patient's previous PCI is off over 2 years we will discontinue Effient and considering patient elevation of troponin T will initiate Plavix 75 g p.o. once a day. * Would add Eliquis 5 g p.o. twice daily for stroke prevention (2) Benign essential HTN: * Will recommend a low-sodium low-cholesterol diet. * Will monitor blood pressure on a daily basis and further medication adjustment made on an outpatient basis (3) Atrial flutter: * With proceed with transesophageal guided cardioversion as discussed with the patient and his family. * Initiated Eliquis 5 g p.o. twice daily for stroke prevention. * Will keep patient n.p.o. and consult anesthesia service for sedation. Attestations Medical Necessity Statement*: Oscar Sierra Elfego's hospital stay will require greater than 2 midnights for Coding Level of Care Code Acute Code for [facility] Diagnoses Unstable angina I20.0 Benign essential HTN I10 Atrial flutter I48.92
[2023-01-31] MEDS: metoprolol succinate ER (24 HR) 25 mg Tablet 12.5 MG PO (08:33)
[2023-01-31] MEDS: atorvastatin 40 mg Tablet 80 MG PO (08:33)
[2023-01-31] MEDS: sertraline 100 mg Tablet PO (08:33)
[2023-01-31] MEDS: clopidogrel 75 mg Tablet PO (08:34)
[2023-01-31] MEDS: apixaban 5 mg Tablet PO ×2 (08:35→21:25)
--- NOTE | 2023-01-31 08:48 | ECG_ITS ---
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 Measurements Intervals [place] Rate: 129 P: 0 HI: 0 QRS: -28 QRSD: 90 T: 111 QT: 300 QTc: 441 Interpretive Statements SINUS TACHYCARDIA NON SPECIFIC ST T WAVE CHANGES BORDERLINE LEFT AXIS DEVIATION [QRS AXIS < -20] ST DEVIATION AND MODERATE T-WAVE ABNORMALITY, CONSIDER LATERAL ISCHEMIA [-0.1+ mV T-WAVE IN I/aVL/V5/V6] Compared to ECG 01/30/2023 11:10:59 T-wave abnormality now present Possible ischemia now present Electronically Signed On 02-01-2023 23:39:24 CDT by Mp Martínez M.D. [id number]
--- NOTE | 2023-01-31 09:02 | USCV_ITS ---
Oscar Telles Age: 83 Gender: M : 1940 Exam Date: 01/31/2023 10:46 Ordering Phys: Radha Pavon MD ([email or web address]) Technologist: Cm Fink Exam Location: [facility] [place] Indication: afib BP: / HR: Rhythm: Sinus Technical Quality: Excellent MEASUREMENTS (Male / Female) Normal Values Medications Complications Proc. Components FINDINGS Left Ventricle C Right Ventricle The right ventricle is normal in size and function. Right Atrium The right atrium is normal in size. Left Atrium The left atrium is normal in size. LA Appendage The LA appendage is normal. No thrombus noted IA Septum The interatrial septum is normal. Mitral Valve Structurally normal mitral valve without significant stenosis or prolapse. There is no significant mitral regurgitation. Aortic Valve Structurally normal aortic valve without significant sclerosis or stenosis. There is no aortic regurgitation. Tricuspid Valve Structurally normal tricuspid valve without significant stenosis or regurgitation. Pulmonary artery systolic pressure is normal. Pulmonic Valve Structurally normal pulmonic valve without significant stenosis. There is no pulmonic regurgitation. Pericardium Aorta Normal ascending aorta dimension. CONCLUSIONS Normal left ventricular size, systolic function and wall thickness, with no regional wall motion abnormalities. Normal left ventricular wall thickness. . EF 65% Normal left atrial appendage No intracardiac thrombus noted Baseline rhythm atrial fibrillation Brando Pavon MD (Electronically Signed) Final Date: 31 Jan 2023 11:37 S
--- NOTE | 2023-01-31 09:41 | PC.NURSE ---
Aflutter with rapid ventricular response 130s Pt is sitting up in chair. He stated he is up to the bathroom. Asked how is feeling, pt stated, he is dizzy and lightheaded. Pt stated he has chest pain in the middle when he takes a deep breath and has pounding headache. Dr Calero in room and family at bedside. EKG taken. BP-76/52 sitting up up, Assisted pt back to bed,BP-107/78. HR in 125-130s.
--- NOTE | 2023-01-31 09:52 | PC.NURSE ---
Informed family at bedside regarding pt's HR sustaining in rapid ventricular response 130s, aflutter/afib. family is aware that pt is going for a GERMAN/cardioversion per dr vanessa discussion w/them in room. Notified pt and family that we are moving the pt in ICU-10. ushered pt via bed.
--- NOTE | 2023-01-31 10:00 | PC.NURSE ---
Notified Art Gilder Informed Dr Pavon regarding pt's aflutter with RVR in 130s. Pt symptoms and his BP sitting up is 76/52, laying in bed 107/78, 135/78 post 5 mins.
--- NOTE | 2023-01-31 11:02 | PC.NURSE ---
Bedside GERMAN and cardioversion done. Pt tolerated well and is now sinus rhythm with rate in the 60's.
--- NOTE | 2023-01-31 11:12 | PM.PROC ---
Procedure Note: Date of procedure: 01/31/23 Pre-procedure diagnosis: Atrial Flutter Procedure: Elective Cardioversion 1. After informed consent, sedation was achieved with anesthesia's help. 2. After sedation was achieved 120 J synchronized energy was delivered in AP direction. 3. Patient converted to NSR with no complications. Conclusion Successful GERMAN guided cardioversion Coding Level of Care Code Acute Code for [facility] Fwd
[2023-01-31 11:18] LABS: Glucose Point of Care 197 mg/dL (70-110)
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
--- NOTE | 2023-01-31 11:58 | ANE.PACU2 ---
Inpatient post-anesthesia follow up: Airway intact: Yes Vital signs: Temperature 98.4 F Pulse Rate 82 Respiratory Rate 14 Blood Pressure 115/77 Pulse Oximetry 96 Oxygen Delivery Me thod Room Air Oxygen Flow Rate Fraction of Inspir ed Oxygen Hydration adequate: Yes Nausea and vomiting: No Pain level: 2 Mental status: Baseline
--- NOTE | 2023-01-31 13:13 | PM.PN ---
Subjective Subjective: Patient is awake and alert this morning. Reports he actually slept great last night after not getting sleep the night prior. He is up to bedside chair. Endorses dizziness. Blood pressure noted to be low. Reports some chest discomfort overnight, currently chest pain free. Telemetry with heart rates in the 130s for about the last hour. He denies fevers, chills, or nausea. Medications: Reviewed: Yes Vitals/I&O/Wt Last Vital Signs Temp 98.4 F 01/31/23 08:08 Pulse 82 01/31/23 08:08 Resp 14 01/31/23 08:08 BP 115/77 01/31/23 08:08 Pulse Ox 96 01/31/23 08:08 O2 Del Method Room Air 01/31/23 08:08 01/30/23 01/31/23 01/31/23 22:59 06:59 14:59 Intake Total 120 / 516.667 970.833 / 1487.500 Output Total 950 / 1650 1000 / 2650 300 / 300 Balance -830 / -1133.333 -29.167 / -1162.500 -300 / -300 Weight last 48 hrs Weight 70.307 kg Physical Exam Narrative: General: Patient is awake and alert. Very pleasant. Head: Normocephalic. Atraumatic. EOM intact. Neck: No JVD. Cardiovascular: Irregular rhythm. Tachycaric. No gallops. No murmurs. Lungs: Breath sounds are diminished in bilateral bases, no use of accessory muscles, no crackles or wheezes. Skin: No jaundice. No rashes. Abdomen: Normal bowel sounds, abdomen soft and nontender. Extremities: No cyanosis or clubbing. Musculoskeletal: No erythematous joints. Neurological: Moves all 4 extremities. No myoclonus. Data 01/31/23 03:20 01/31/23 03:20 A&P Assessment and plan (1) Atrial flutter: Telemetry and EKG w/ atrial fib/flutter with RVR, HR currently 130-140s at rest Cardiology consulted, appreciate recommendations NPO for GERMAN w/ cardioversion today Transfer to ICU for procedure Continue apixaban Continue metoprolol (2) Chest pain: Suspected 2/2 to atrial fibrillation/flutter with RVR S/P cardiac cath (01/30) showing severe [place] CAD< and 3/3 patent grafts, ISR SVG to OM/segment sequentially diagonal w/ IFR 0.97 COntinue imdur (3) Acute on chronic diastolic (congestive) heart failure: Acute on chronic HFpEF, improved Compensating well on exam Daily assessment of volume (4) Unstable angina: Unstable angina considered, presentation more consistent with symptomatic a-fib w/ RVR Cardiac cath report reviewed (5) Type 2 diabetes mellitus with hyperglycemia: SSI Avoid hypoglycemia Qualifiers: Diabetes mellitus intermission coordinator insulin use: with intermission coordinator use Qualified Code(s): E11.65 - Type 2 diabetes mellitus with hyperglycemia; Z79.4 - detention (current) use of insulin (6) Chronic gastroesophageal reflux disease: On diet (7) Dyslipidemia: Continue statin (8) Mitral regurgitation: Qualifiers: Cardiac valve disease etiology: nonrheumatic Qualified Code(s): I34.0 - Nonrheumatic mitral (valve) insufficiency (9) Chronic kidney disease (CKD): Renal function at baseline Continue to monitor Qualifiers: Chronic kidney disease stage: stage 3 (moderate) Qualified Code(s): N18.3 - Chronic kidney disease, stage 3 (moderate) (10) Benign essential HTN: Continue metoprolol Plan DVT ppx: Apixaban Attestations Medical Necessity Statement*: Patient requires ongoing hospitalization for persistent chest pain, shortness of breath, cardiac arrhythmia, cardiology expertise, and telemetry monitoring. Coding Level of Care Code Acute Code for Chg Fwd Diagnoses Atrial flutter I48.92 Chest pain R07.9 Acute on chronic diastolic (congestive) heart failure I50.33 Unstable angina I20.0 Type 2 diabetes mellitus with hyperglycemia E11.65; Z79.4 Diabetes mellitus assisted insulin use: with intermission coordinator use Chronic gastroesophageal reflux disease K21.9 Dyslipidemia E78.5 Mitral regurgitation I34.0 Cardiac valve disease etiology: nonrheumatic Chronic kidney disease (CKD) N18.3 Chronic kidney disease stage: stage 3 (moderate) Benign essential HTN I10
[2023-01-31] MEDS: insulin lispro 100 unit/1 mL SUBCUT ×3 (13:22→21:30)
[2023-01-31] MEDS: isosorbide mononitrate ER 30 mg Tablet PO (13:22)
[2023-01-31] MEDS: sodium chloride 0.45% 1,000 ML 75 ML IV (13:23)
[2023-01-31 16:53] LABS: Glucose Point of Care 334 mg/dL (70-110)
[2023-01-31 20:55] LABS: Glucose Point of Care 307 mg/dL (70-110)
[2023-01-31] MEDS: tamsulosin 0.4 mg Capsule PO (21:25)
[2023-02-01] VITALS (12 sets, daily range): BP systolic 114–167; BP diastolic 59–78; PULSE 55–75; RESP 12–22; TEMP 36.8; O2SAT 94–97
[2023-02-01] MEDS: sodium chloride 0.45% 1,000 ML 75 ML IV (02:49)
[2023-02-01 05:45] LABS: Hematocrit 38.5 % (42.0-52.0); Hemoglobin 12.2 g/dL (11.7-16.6); Mean Corpuscular HGB Conc 31.7 g/dL (30.0-36.0); Mean Corpuscular Hemoglobin 30.3 pg (28.0-34.0); Mean Corpuscular Volume 95.8 fl (80-94); Mean Platelet Volume 11.1 fL (7.4-10.4); Platelet Count 116 10^3/cmm (130-400); Red Blood Count 4.02 10^6/uL (4.1-5.3); Red Cell Distribution Width 13.4 % (12.1-15.1); White Blood Count 7.9 10^3/uL (4.0-10.0)
[2023-02-01 06:07] LABS: Anion Gap 11.3 (5-19); Blood Urea Nitrogen 26 mg/dL (8-23); Calcium 8.3 mg/dL (8.5-10.5); Carbon Dioxide 24 mmol/L (22-29); Chloride 106 mmol/L (98-107); Glucose 150 mg/dL (65-115); Osmolality Calculated 292 mOsm/kg (285-295); Potassium 4.3 mmol/L (3.5-5.1); Sodium 137 mmol/L (136-145)
[2023-02-01 07:31] LABS: Absolute Eosinophils 0.1 10^3/cmm (0.0-0.7); Absolute Neutrophil 4.8 10^3/cmm (1.4-6.5); Absolute Segmented Neutrophil 4.8 10/cmm (1.6-7.1); Eosinophils 2 %; Lymphocytes 35 %; Lymphocytes Absolute 2.8 10^3/cmm (1.2-3.4); Monocytes Absolute 0.2 10^3/cmm (0.1-0.6); Platelet Estimate Decreased (Normal); Segmented Neutrophils 61 %; Total Cells Counted 100 (0-100)
[2023-02-01 07:56] LABS: Glucose Point of Care 152 mg/dL (70-110)
[2023-02-01] MEDS: insulin lispro 100 unit/1 mL SUBCUT (08:00)
[2023-02-01] MEDS: clopidogrel 75 mg Tablet PO (08:00)
[2023-02-01] MEDS: atorvastatin 40 mg Tablet 80 MG PO (08:00)
[2023-02-01] MEDS: isosorbide mononitrate ER 30 mg Tablet PO (08:00)
[2023-02-01] MEDS: sertraline 100 mg Tablet PO (08:00)
[2023-02-01] MEDS: metoprolol succinate ER (24 HR) 25 mg Tablet 12.5 MG PO (08:00)
[2023-02-01] MEDS: apixaban 5 mg Tablet PO (08:10)
--- NOTE | 2023-02-01 09:11 | P.PN_ITS ---
Subjective Subjective: Patient reports doing well Denies any chest pain Slept well overnight No cardiovascular issues reported Tolerating medications well Tolerated procedure well both GERMAN and cardioversion. Vitals/I&O/Wt Last Vital Signs Temp 98.2 F 02/01/23 03:00 Pulse 61 02/01/23 08:00 Resp 14 02/01/23 08:00 BP 167/73 02/01/23 08:00 Pulse Ox 96 02/01/23 08:00 O2 Del Method Room Air 02/01/23 06:00 01/31/23 02/01/23 02/01/23 22:59 06:59 14:59 Intake Total 360 / 720 1000 / 1720 360 / 360 Output Total 425 / 725 500 / 1225 600 / 600 Balance -65 / -5 500 / 495 -240 / -240 Physical Exam Const: COMMON NORMALS: no acute distress GENERAL APPEARANCE: cooperative and comfortable Chest: COMMONS NORMALS: normal inspection of the chest Resp: COMMON NORMALS: normal respiratory effort, No use of accessory muscles and clear to auscultation bilaterally AUSCULTATION: clear to auscultation bilaterally Cardio: COMMON NORMALS: regular rate, regular rhythm (Irregular), S1 normal heart sound present, S2 normal heart sound present, No gallops present (Cardio) and No murmurs present (Cardio) JUGULAR VENOUS DISTENTION: no JVD RATE: regular rate RHYTHM: regular rhythm (Irregular) HEART SOUNDS: S1 normal heart sound present and S2 normal heart sound present Data 02/01/23 05:32 02/01/23 05:32 A&P Assessment and plan (1) Unstable angina: * Continue with medical management. * Will optimize antianginal regimen to prevent further episodes of chest discomfort as reported on his initial presentation. * Will increase Imdur 60 g p.o. once a day. * Continue Plavix 75 g p.o. once a day. * Would add Eliquis 5 g p.o. twice daily for stroke prevention. * S/p cardioversion currently normal sinus rhythm * Will start lisinopril 5 g p.o. once a day (2) Benign essential HTN: * Will recommend a low-sodium low-cholesterol diet. * Will monitor blood pressure on a daily basis and further medication adjustment made on an outpatient basis. * Will continue to monitor at this time (3) Atrial flutter: * Continue Eliquis 5 g p.o. twice daily for stroke prevention. * May be transferred to floor status. * If no other medical issues remain may be discharged home at at Dr. Blum's discretion. Follow-up disposition Patient is to follow with Dr. Girard in 2 to 4 weeks time. Attestations Medical Necessity Statement*: Oscar Telles's hospital stay will require greater than 2 midnights for Coding Level of Care Code Acute Code for Chg Fwd Diagnoses Unstable angina I20.0 Benign essential HTN I10 Atrial flutter I48.92
--- NOTE | 2023-02-01 10:38 | PM.DCS ---
Discharge Providers Date of Admission: 01/30/23 04:30 Date of Discharge: February 01, 2023 Attending Provider at Admission: Cristiana Beverly MD Attending Provider at Discharge: Allan Blum MD Primary Care Provider: ALEJANDRINA Meza Diagnoses at Discharge Discharge Diagnosis (1) Unstable angina: Status: Acute (2) Benign essential HTN: Status: Chronic (3) Atrial flutter: Status: Acute Reason for Visit Reason for Visit: CP Hospital Course Hospital Course 83-year-old male ?known to have essential hypertension, diabetes mellitus, hyperlipidemia, mitral regurgitation, type 2 diabetes diabetes mellitus, coronary disease s/p CABG November 2003, s/p catheter-based intervention stent placement to SVG to OM 2019 who presented with unstable angina, patient was diagnosed with new onset atrial flutter/A-fib, status post cardiac cath with patent grafts. For his A-fib he was cardioverted 01/31 by the cardiology, patient remained in sinus rhythm, he was put on Plavix and Eliquis 5 mg twice a day. Lisinopril was added for his hypertension along Imdur. Heart rate has been below 60 I will hold his metoprolol succinate for couple of days have him follow-up with Dr. Girard in 2 weeks to optimize his medications. Patient is being discharged stable vitals. Patient is doing well able to eat having regular bowel movement. Family is at the bedside. Physical Exam Narrative: Patient is awake and alert Euvolemic Sinus rhythm hemodynamically stable pleasant and cooperative Discharge Data Studies Completed and Pending Completed Studies During Hospitalization Category Date Time Status ANALYTICS INTERN request for service Routine Exams 01/30/23 12:29 Completed XR chest 1V portable [id number] Stat Exams 01/30/23 02:54 Completed CV. echo transesophageal [id number] Routine Ultrasound 01/31/23 09:02 Completed US echo complete [CV. echo complete* [id number]] Routine Ultrasound 01/30/23 06:34 Completed Pending at discharge Category Date Time Status Magnesium AM LABS Lab 02/01/23 04:00 Ordered Phosphorus AM LABS Lab 02/01/23 04:00 Ordered Radiology Impressions Chest X-Ray 01/30/23 02:54 IMPRESSION: No acute findings. Laboratory Results WBC 7.9 10^3/uL (4.0-10.0) 02/01/23 05:32 RBC 4.02 10^6/uL (4.1-5.3) L 02/01/23 05:32 Hgb 12.2 g/dL (11.7-16.6) 02/01/23 05:32 Hct 38.5 % (42.0-52.0) L 02/01/23 05:32 MCV 95.8 fl (80-94) H 02/01/23 05:32 MCH 30.3 pg (28.0-34.0) 02/01/23 05:32 MCHC 31.7 g/dL (30.0-36.0) 02/01/23 05:32 RDW 13.4 % (12.1-15.1) 02/01/23 05:32 Plt Count 116 10^3/cmm (130-400) L 02/01/23 05:32 MPV 11.1 fL (7.4-10.4) H 02/01/23 05:32 Neut % (Auto) 62.0 % 01/31/23 03:20 Lymph % (Auto) 27.4 % 01/31/23 03:20 [place] % (Auto) 7.8 % 01/31/23 03:20 Eos % (Auto) 1.8 % 01/31/23 03:20 Baso % (Auto) 0.5 % 01/31/23 03:20 Neut # (Auto) 7.04 10^3/uL (1.8-7.7) 01/31/23 03:20 Lymph # (Auto) 3.1 10^3/uL (0.8-4.8) 01/31/23 03:20 [place] # (Auto) 0.9 10^3/uL (0.2-0.9) 01/31/23 03:20 Eos # (Auto) 0.2 10^3/uL (0.0-0.8) 01/31/23 03:20 Baso # (Auto) 0.1 10^3/uL (0.0-0.1) 01/31/23 03:20 Nucleated RBC % (auto) 0 % 01/31/23 03:20 Total Counted 100 (0-100) 02/01/23 05:32 Atypical Lymphs % 0.0 % (0-5) 02/01/23 05:32 Absolute Neutrophils 4.8 10^3/cmm (1.4-6.5) 02/01/23 05:32 Segmented Neutrophils 61 % 02/01/23 05:32 Abs Segm Neuts (Man) 4.8 10/cmm (1.6-7.1) 02/01/23 05:32 Band Neutrophils 0.0 % 02/01/23 05:32 Abs Band Neuts (Man) 0.0 10^3/cmm (0.0-1.2) 02/01/23 05:32 Absolute Lymphocytes 2.8 10^3/cmm (1.2-3.4) 02/01/23 05:32 Lymphocytes (Manual) 35 % 02/01/23 05:32 Monocytes (Manual) 2.0 % 02/01/23 05:32 Absolute Monocytes 0.2 10^3/cmm (0.1-0.6) 02/01/23 05:32 Eosinophils (Manual) 2 % 02/01/23 05:32 Absolute Eosinophils 0.1 10^3/cmm (0.0-0.7) 02/01/23 05:32 Basophils (Manual) 0.0 % 02/01/23 05:32 Absolute Basophils 0.0 10^3/cmm (0.0-0.2) 02/01/23 05:32 Metamyelocytes 0.0 % 02/01/23 05:32 Myelocytes 0.0 % 02/01/23 05:32 Nucleated RBCs 0.0 /100WBC (0-1) 02/01/23 05:32 Nucleated RBCs # 0.0 /100WBC 01/31/23 03:20 Platelet Estimate Decreased (Normal) 02/01/23 05:32 APTT 40.8 SECONDS (23.9-36.7) H 01/30/23 15:42 Sodium 137 mmol/L (136-145) 02/01/23 05:32 Potassium 4.3 mmol/L (3.5-5.1) 02/01/23 05:32 Chloride 106 mmol/L (98-107) 02/01/23 05:32 Carbon Dioxide 24 mmol/L (22-29) 02/01/23 05:32 Anion Gap 11.3 (5-19) 02/01/23 05:32 BUN 26 mg/dL (8-23) H 02/01/23 05:32 Creatinine 1.0 mg/dL (0.7-1.2) 02/01/23 05:32 GFR Calculation Not Reportable 02/01/23 05:32 Glucose 150 mg/dL (65-115) H 02/01/23 05:32 POC Glucose 152 mg/dL (70-110) H 02/01/23 07:54 Estimat Average Glucose 166 01/30/23 05:54 Hemoglobin A1c 7.4 % (4.0-6.0) H 01/30/23 05:54 Calculated Osmolality 292 mOsm/kg (285-295) 02/01/23 05:32 Calcium 8.3 mg/dL (8.5-10.5) L 02/01/23 05:32 Magnesium 2.0 mg/dL (1.7-2.3) 01/31/23 03:20 Total Bilirubin 0.9 mg/dL (0.15-1.2) 01/30/23 03:10 AST 22 U/L (0-40) 01/30/23 03:10 ALT 22 U/L (0-41) 01/30/23 03:10 Alkaline Phosphatase 90 U/L (40-130) 01/30/23 03:10 Troponin T Baseline 17 ng/L (0-15) H 01/30/23 03:10 Troponin T 120 Minute 25.19 ng/L (0-15) H 01/30/23 05:54 Delta Troponin T 8.19 ABS# (0-10) 01/30/23 05:54 Troponin T Hi Sens 6Hr 35.63 ng/L (0-15) H 01/30/23 09:01 Troponin T Hi Sens 6Hr Delta 18.63 ng/L (0-12) H* 01/30/23 09:01 NT-Pro-B Natriuret Pep 405 pg/mL (0-450) 01/30/23 03:10 Total Protein 6.6 g/dL (6.6-8.7) 01/30/23 03:10 Albumin 3.9 g/dL (3.5-5.2) 01/30/23 03:10 Globulin 2.7 g/dL (1.3-4.6) 01/30/23 03:10 Triglycerides 111 mg/dL (0-150) 01/30/23 05:54 Cholesterol 105 mg/dL (0-200) 01/30/23 05:54 LDL Cholesterol, Calc 41 mg/dL (50-129) L 01/30/23 05:54 HDL Cholesterol 42 mg/dL (60-100) L 01/30/23 05:54 LDL/HDL Ratio 0.98 RATIO (0.00-3.22) 01/30/23 05:54 Cholesterol/HDL Ratio 2.50 mg/dL (1.0-5.00) 01/30/23 05:54 TSH 3.51 uIU/mL (0.27-4.20) 01/30/23 05:54 Vitals Last Vital Signs Temp 98.2 F 02/01/23 03:00 Pulse 59 L 02/01/23 10:00 Resp 16 02/01/23 10:00 BP 125/59 02/01/23 10:00 Pulse Ox 96 02/01/23 10:00 O2 Del Method Room Air 02/01/23 06:00 Discharge Plan Discharge Patient Disposition: Home Condition: Stable Prescriptions: New clopidogrel 75 mg Tablet 75 mg PO DAILY Qty: 90 3RF Eliquis 5 mg Tablet 5 mg PO BID@0900,2100 Qty: 120 10RF lisinopril 5 mg Tablet 5 mg PO DAILY Qty: 90 3RF isosorbide mononitrate 30 mg Tablet Extended Release 24 Hr 60 mg PO DAILY Qty: 60 0RF Continued cyanocobalamin (vitamin B-12) [Vitamin B-12] 1,000 mcg tablet 1,000 mcg PO DAILY Hold Instructions: Doctor's Order cholecalciferol (vitamin D3) 1,000 unit capsule 2,000 unit PO DAILY acetaminophen 500 mg capsule 500 mg PO BEDTIME PRN (Reason: Pain) Jardiance 25 mg tablet 25 mg PO QAM Qty: 90 0RF Novolin 70/30 U-100 Insulin 100 unit/mL (70-30) suspension See Rx Instructions SUBCUT BID Qty: 10 2RF Rx Instructions: 24 AM and 18 PM subcutaneously twice a day; sertraline [Zoloft] 100 mg tablet 100 mg PO DAILY Qty: 90 0RF tamsulosin [Flomax] 0.4 mg capsule 0.4 mg PO .at bedtime Qty: 90 0RF nitroglycerin [Nitrostat] 0.4 mg tablet, sublingual 0.4 mg SUBLINGUAL Q5M PRN (Reason: chest pain) 30 Days Qty: 30 3RF (DME) Accu-Chek Michelle Plus test strp Strip See Rx Instructions .Route Qty: 300 5RF Rx Instructions: 3 times day if needed coenzyme Q10 [CoQ-10] 100 mg Capsule 100 mg PO DAILY hydrocodone-acetaminophen 5-325 mg tablet 1 tab PO Q6H PRN (Reason: pain) Qty: 15 0RF atorvastatin 80 mg tablet 80 mg PO DAILY Qty: 90 3RF Discontinued prasugrel 10 mg tablet 10 mg PO DAILY Qty: 90 0RF Discharge Orders: Discharge Order (Routine); Ordered 02/01/23 Ordered By: Allan Blum Referrals: Rosario Girard MD [Physician] - 2 weeks Martínez Diehl FNP-C [Primary Care Provider] - 7-10 days Discharge Diet: Cardiac Discharge Activity: Increase activity as tolerated Patient Instructions: Opioid Safety Discharge Attestations Time Spent in Discharge Care*: greater than 30 min Status at Discharge: Cognitive status at discharge: cognitively intact, Behavioral status at discharge: cooperative, Quality Metrics Clinical Quality Measures [ No reported AMI, CVA or VTE this stay] Coding Level of Care Code Acute Code for Chg Fwd Diagnoses Unstable angina I20.0 Benign essential HTN I10 Atrial flutter I48.92
== END 2023-02-01 11:18 | disposition home or self-care (01) ==
LOC: ER 03:06 → CSU 04:59 → ICU 01-31 09:43
PROVIDERS: Internal Medicine; Internal Medicine Cardiovascular Disease; Admitting Provider Internal Medicine; Emergency Provider Emergency Medicine; PCP Nurse Practitioner; Visit Provider Internal Medicine
DX: I25.110 Atherosclerotic heart disease of native coronary artery with unstable angina pectoris (principal); E11.65 Type 2 diabetes mellitus with hyperglycemia; E78.5 Hyperlipidemia, unspecified; I34.0 Nonrheumatic mitral (valve) insufficiency; Z95.5 Presence of coronary angioplasty implant and graft; I48.91 Unspecified atrial fibrillation; Z79.4 Long term (current) use of insulin; Z79.84 Long term (current) use of oral hypoglycemic drugs; Z79.891 Long term (current) use of opiate analgesic; Z88.6 Allergy status to analgesic agent; I50.32 Chronic diastolic (congestive) heart failure; E11.22 Type 2 diabetes mellitus with diabetic chronic kidney disease; E11.51 Type 2 diabetes mellitus with diabetic peripheral angiopathy without gangrene; N18.30 Chronic kidney disease, stage 3 unspecified; Z95.1 Presence of aortocoronary bypass graft; T82.855A Stenosis of coronary artery stent, initial encounter; I48.92 Unspecified atrial flutter; K21.9 Gastro-esophageal reflux disease without esophagitis; E11.42 Type 2 diabetes mellitus with diabetic polyneuropathy; I13.0 Hypertensive heart and chronic kidney disease with heart failure and stage 1 through stage 4 chronic kidney disease, or unspecified chronic kidney disease; Y71.2 Prosthetic and other implants, materials and accessory cardiovascular devices associated with adverse incidents
CPT/HCPCS: 36415; 36416; 71045; 80048; 80053; 80061; 82962; 83036; 83735; 83880; 84443; 84484; 85007; 85025; 85027; 85347; 85730; 93005; 93306; 93312; 93320; 93325; 93455; 93571; 96361; 96365; 96372; 96376; 99152; 99153; 99285; C1769; C1887; C1894; G0378; J0153; J1200; J1644; J1815; J2250; J2370; J2405; J2704; J3010; J3490; J7030; J7050; Q9967

== ENCOUNTER → 2023-02-12 09:11 | Outpatient (BNVA) | payer MEDICARE, SELFPAY | PROVIDERS: PCP Nurse Practitioner; Visit Provider Thoracic Surgery (Cardiothoracic Vascular Surgery) | DX: S61.213D Laceration without foreign body of left middle finger without damage to nail, subsequent encounter (principal); S61.211D Laceration without foreign body of left index finger without damage to nail, subsequent encounter; W27.0XXD Contact with workbench tool, subsequent encounter | CPT/HCPCS: 97597 ==

== ENCOUNTER → 2023-02-17 09:11 | Outpatient (BNVA) | payer MEDICARE, SELFPAY | PROVIDERS: PCP Nurse Practitioner; Visit Provider Nurse Practitioner Family | DX: I25.10 Atherosclerotic heart disease of native coronary artery without angina pectoris (principal); Z92.89 Personal history of other medical treatment; R00.1 Bradycardia, unspecified | CPT/HCPCS: 93005; 99214 ==

== ENCOUNTER → 2023-02-22 10:04 | Outpatient (BNVA) | payer MEDICARE, SELFPAY | PROVIDERS: PCP Nurse Practitioner; Visit Provider Nurse Practitioner | DX: E11.65 Type 2 diabetes mellitus with hyperglycemia (principal); Z79.4 Long term (current) use of insulin; F43.10 Post-traumatic stress disorder, unspecified; R39.11 Hesitancy of micturition | CPT/HCPCS: 81000 ==

== ENCOUNTER → 2023-05-13 15:19 | Outpatient (BNVA) | payer MEDICARE, SELFPAY | PROVIDERS: PCP Nurse Practitioner; Visit Provider Nurse Practitioner | DX: E11.65 Type 2 diabetes mellitus with hyperglycemia (principal); E53.8 Deficiency of other specified B group vitamins; E55.9 Vitamin D deficiency, unspecified; I25.110 Atherosclerotic heart disease of native coronary artery with unstable angina pectoris | CPT/HCPCS: 80053; 80061; 82306; 82607; 83036; 85025 ==

== ENCOUNTER → 2023-05-17 09:42 | Outpatient (BNVA) | payer MEDICARE, SELFPAY | PROVIDERS: PCP Nurse Practitioner; Visit Provider Nurse Practitioner | DX: E11.65 Type 2 diabetes mellitus with hyperglycemia (principal) | CPT/HCPCS: 81000 ==

== ENCOUNTER → 2023-05-26 10:01 | Outpatient (BNVA) | payer MEDICARE, SELFPAY | PROVIDERS: PCP Nurse Practitioner; Visit Provider Nurse Practitioner | DX: M19.012 Primary osteoarthritis, left shoulder (principal) | CPT/HCPCS: 72040; 73030 ==

== ENCOUNTER → 2023-07-22 10:00 | Outpatient (BNVA) | payer MEDICARE, SELFPAY | PROVIDERS: PCP Nurse Practitioner; Visit Provider Nurse Practitioner | DX: E11.65 Type 2 diabetes mellitus with hyperglycemia (principal); E53.8 Deficiency of other specified B group vitamins; E55.9 Vitamin D deficiency, unspecified; I25.110 Atherosclerotic heart disease of native coronary artery with unstable angina pectoris; Z79.4 Long term (current) use of insulin | CPT/HCPCS: 80053; 80061; 82306; 82607; 83036; 85025 ==

== ENCOUNTER → 2023-08-04 14:14 | Outpatient (BNVA) | payer MEDICARE, SELFPAY | PROVIDERS: PCP Nurse Practitioner; Visit Provider Nurse Practitioner Family | DX: R05.9 Cough, unspecified (principal) | CPT/HCPCS: 87400; 87426 ==

== ENCOUNTER → 2023-08-12 13:01 | Outpatient (BNVA) | payer MEDICARE, SELFPAY | PROVIDERS: PCP Nurse Practitioner; Visit Provider Nurse Practitioner Family | DX: I25.10 Atherosclerotic heart disease of native coronary artery without angina pectoris (principal); Z92.89 Personal history of other medical treatment; I10 Essential (primary) hypertension | CPT/HCPCS: 99213 ==

== ENCOUNTER → 2023-10-14 09:19 | Outpatient (BNVA) | payer MEDICARE, SELFPAY | PROVIDERS: PCP Nurse Practitioner; Visit Provider Nurse Practitioner | DX: E55.9 Vitamin D deficiency, unspecified (principal); I10 Essential (primary) hypertension; E11.65 Type 2 diabetes mellitus with hyperglycemia; Z79.4 Long term (current) use of insulin | CPT/HCPCS: 80053; 80061; 82306; 82607; 83036; 84443; 85025 ==

== ENCOUNTER → 2023-10-19 15:09 | Outpatient (BNVA) | payer MEDICARE, SELFPAY | PROVIDERS: PCP Nurse Practitioner; Visit Provider Nurse Practitioner | DX: E11.65 Type 2 diabetes mellitus with hyperglycemia (principal); Z79.4 Long term (current) use of insulin | CPT/HCPCS: 81000 ==

== ENCOUNTER → 2023-12-30 09:41 | Outpatient (BNVA) | payer MEDICARE, SELFPAY | PROVIDERS: PCP Nurse Practitioner; Visit Provider Nurse Practitioner | DX: E11.65 Type 2 diabetes mellitus with hyperglycemia (principal); E55.9 Vitamin D deficiency, unspecified; Z79.4 Long term (current) use of insulin | CPT/HCPCS: 80053; 80061; 81000; 82306; 82607; 83036; 85025 ==

== ENCOUNTER → 2024-02-28 10:05 | Outpatient (BNVA) | payer MEDICARE, SELFPAY | PROVIDERS: PCP Nurse Practitioner; Visit Provider Internal Medicine Cardiovascular Disease | DX: I25.10 Atherosclerotic heart disease of native coronary artery without angina pectoris (principal); E78.5 Hyperlipidemia, unspecified; I48.3 Typical atrial flutter; E11.65 Type 2 diabetes mellitus with hyperglycemia; Z79.4 Long term (current) use of insulin; I13.0 Hypertensive heart and chronic kidney disease with heart failure and stage 1 through stage 4 chronic kidney disease, or unspecified chronic kidney disease; E11.22 Type 2 diabetes mellitus with diabetic chronic kidney disease; N18.9 Chronic kidney disease, unspecified; I50.33 Acute on chronic diastolic (congestive) heart failure; Z79.01 Long term (current) use of anticoagulants | CPT/HCPCS: 99214 ==

== ENCOUNTER → 2024-03-20 08:49 | Outpatient (BNVA) | payer MEDICARE, SELFPAY | PROVIDERS: PCP Nurse Practitioner; Visit Provider Nurse Practitioner | DX: E11.65 Type 2 diabetes mellitus with hyperglycemia (principal); E55.9 Vitamin D deficiency, unspecified; Z79.4 Long term (current) use of insulin | CPT/HCPCS: 80053; 80061; 81000; 82306; 82607; 83036; 84443; 85025 ==

== ENCOUNTER → 2024-06-01 11:23 | Outpatient (BNVA) | payer MEDICARE, SELFPAY | PROVIDERS: PCP Nurse Practitioner; Visit Provider Nurse Practitioner Family | DX: E55.9 Vitamin D deficiency, unspecified (principal); E11.9 Type 2 diabetes mellitus without complications | CPT/HCPCS: 71046; 80053; 80061; 82306; 82607; 83036; 84443; 85025 ==

== ENCOUNTER → 2024-08-17 10:04 | Outpatient (BNVA) | payer MEDICARE, SELFPAY | PROVIDERS: PCP Nurse Practitioner; Visit Provider Nurse Practitioner | DX: E11.65 Type 2 diabetes mellitus with hyperglycemia (principal); Z79.4 Long term (current) use of insulin | CPT/HCPCS: 80053; 80061; 81000; 82607; 83036; 84443; 85025 ==

== ENCOUNTER → 2024-11-01 09:39 | Outpatient (BNVA) | payer MEDICARE, SELFPAY | PROVIDERS: PCP Nurse Practitioner; Visit Provider Nurse Practitioner | DX: E11.9 Type 2 diabetes mellitus without complications (principal); E55.9 Vitamin D deficiency, unspecified; E53.8 Deficiency of other specified B group vitamins; E11.65 Type 2 diabetes mellitus with hyperglycemia; Z79.4 Long term (current) use of insulin | CPT/HCPCS: 80053; 80061; 82306; 82607; 83036; 84443; 85025 ==

== ENCOUNTER → 2024-12-06 09:00 | Outpatient (BNVA) | payer MEDICARE, SELFPAY | PROVIDERS: PCP Nurse Practitioner; Visit Provider Nurse Practitioner | DX: R30.0 Dysuria (principal); N39.0 Urinary tract infection, site not specified | CPT/HCPCS: 81000; 87086 ==

== ENCOUNTER → 2025-02-07 11:41 | Outpatient (BNVA) | payer MEDICARE, SELFPAY | PROVIDERS: PCP Nurse Practitioner; Visit Provider Nurse Practitioner | DX: E11.65 Type 2 diabetes mellitus with hyperglycemia (principal); Z79.4 Long term (current) use of insulin | CPT/HCPCS: 80053; 81000; 83036 ==

== ENCOUNTER 2025-02-19 14:59 | Outpatient (CLI) | payer MEDICARE, SELFPAY ==
--- NOTE | 2025-02-19 15:03 | XR_ITS ---
WS: [id number] Lumbar spine, 3 views, 02/19/2025 Clinical Data: M79.10 - Myalgia, unspecified site Comparison: Lumbar spine, 03/26/2021 Findings: No compression fractures or subluxation is seen. No disc space narrowing is seen. The transverse processes and SI joints are normal. There is spurring of the lumbar vertebral bodies. There is calcification of the abdominal aorta but no aneurysm XR/XR lumbar spine 2-3V* [id number] Impression: Osteoarthritis of the lumbar vertebral bodies.
--- NOTE | 2025-02-19 15:03 | XR_ITS ---
WS: [id number] Thoracic spine, 3 views, 02/19/2025 Clinical Data: M79.10 - Myalgia, unspecified site Comparison: Thoracic spine, 03/26/2021 Findings: No compression fractures are seen. The disc heights are normal. There is osteoarthritis of the thoracic vertebral bodies. The paravertebral regions are normal. There are midline sternotomy sutures with mediastinal clips from cardiac surgery. XR/XR thoracic spine 3V* [id number] Impression: Osteoarthritis of the thoracic vertebral bodies.
== END 2025-02-19 15:00 | disposition home or self-care (01) ==
PROVIDERS: PCP Nurse Practitioner; Visit Provider Nurse Practitioner
DX: M47.814 Spondylosis without myelopathy or radiculopathy, thoracic region (principal)
CPT/HCPCS: 72072; 72100

== ENCOUNTER → 2025-04-30 10:01 | Outpatient (BNVA) | payer MEDICARE, SELFPAY | PROVIDERS: PCP Nurse Practitioner; Visit Provider Nurse Practitioner | DX: E11.9 Type 2 diabetes mellitus without complications (principal) | CPT/HCPCS: 80053; 80061; 81000; 83036; 84443; 85025 ==

== ENCOUNTER 2025-06-11 15:00 | Outpatient (CLI) | payer MEDICARE, SELFPAY ==
--- NOTE | 2025-06-11 15:15 | MR_ITS ---
WS: [id number] MRI LUMBAR SPINE NONCONTRAST HISTORY: Back pain. COMPARISON: Radiograph 02/19/2025 TECHNIQUE: Sagittal and axial multisequence imaging is submitted. Mild increase in thoracic kyphosis. Mild anterior wedging of T6, T7 and T8. Marrow edema in T11 with mild anterior wedging. Small amount of marrow edema along the superior endplate of T12 with concave deformity. Biconcave acute fracture at L1 with minimal retropulsion of the superior endplate. Mild increase in lumbar lordosis. Disc spaces and vertebral body heights are well-preserved. Conus terminates normally at L1-2 disc level. L1-L2: Mild annular disc bulging with ligamentum flavum and facet arthritis. Mild bilateral foraminal stenosis. L2-L3: Mild annular disc bulging with mild ligamentum flavum and facet arthritis. Mild RIGHT and moderate LEFT foraminal stenosis. L3-L4: Mild annular disc bulge with a central disc protrusion. Mild ligamentum flavum and facet arthritis. Mild subarticular recess with moderate bilateral foraminal stenosis. L4-L5: Mild annular disc bulging with moderate ligamentum flavum and facet arthritis. Fluid in the facet joints. Moderate bilateral foraminal stenosis. Moderate to severe central and bilateral subarticular recess stenosis. L5-S1: Mild disc bulging and mild facet arthritis. Small central disc protrusion with mild contact on the S1 nerve roots. Mild bilateral foraminal stenosis. Normal paravertebral soft tissues. MR/MR lumbar spine wo con* [id number] IMPRESSION: 1. Acute fractures involving T11, T12 and L1 without significant retropulsion. 2. Mild concave deformity of L1. 3. Age-indeterminate fractures with mild anterior wedging at T6, T7 and T8. 4. Moderate to severe central with bilateral subarticular recess and moderate foraminal stenosis at L4-5 due to disc disease, osteophytes and facet arthritis . 5. Mild bilateral foraminal stenosis at L1-2. 6. Mild RIGHT and moderate LEFT foraminal stenosis at L2-3. 7. Small central disc protrusion at L3 resulting in mild subarticular recess w ith moderate foraminal stenosis. 8. Mild bilateral subarticular recess and foraminal stenosis at L5-S1.
== END 2025-06-11 15:01 | disposition home or self-care (01) ==
PROVIDERS: PCP Nurse Practitioner; Visit Provider Nurse Practitioner
DX: M25.78 Osteophyte, vertebrae (principal); M40.204 Unspecified kyphosis, thoracic region; S32.019A Unspecified fracture of first lumbar vertebra, initial encounter for closed fracture; M51.369 Other intervertebral disc degeneration, lumbar region without mention of lumbar back pain or lower extremity pain; M47.817 Spondylosis without myelopathy or radiculopathy, lumbosacral region; S22.089A Unspecified fracture of T11-T12 vertebra, initial encounter for closed fracture; X58.XXXA Exposure to other specified factors, initial encounter
CPT/HCPCS: 72148

== ENCOUNTER → 2025-07-05 14:54 | Outpatient (BNVA) | payer MEDICARE, SELFPAY | PROVIDERS: PCP Nurse Practitioner; Visit Provider Orthopaedic Surgery | DX: S22.080D Wedge compression fracture of T11-T12 vertebra, subsequent encounter for fracture with routine healing (principal); S32.010D Wedge compression fracture of first lumbar vertebra, subsequent encounter for fracture with routine healing; X58.XXXD Exposure to other specified factors, subsequent encounter | CPT/HCPCS: 72110; 99203 ==

== ENCOUNTER → 2025-07-19 09:41 | Outpatient (BNVA) | payer MEDICARE, SELFPAY | PROVIDERS: PCP Nurse Practitioner; Visit Provider Nurse Practitioner | DX: E11.65 Type 2 diabetes mellitus with hyperglycemia (principal); Z79.4 Long term (current) use of insulin | CPT/HCPCS: 80053; 80061; 81000; 82607; 83036; 84443; 85025 ==

== ENCOUNTER → 2025-07-25 16:38 | Outpatient (BNVA) | payer MEDICARE, SELFPAY | PROVIDERS: PCP Nurse Practitioner; Visit Provider Internal Medicine Cardiovascular Disease | DX: I25.10 Atherosclerotic heart disease of native coronary artery without angina pectoris (principal); I10 Essential (primary) hypertension; E78.5 Hyperlipidemia, unspecified; I48.92 Unspecified atrial flutter; Z79.01 Long term (current) use of anticoagulants; E11.65 Type 2 diabetes mellitus with hyperglycemia; Z79.4 Long term (current) use of insulin; Z95.1 Presence of aortocoronary bypass graft; I25.2 Old myocardial infarction; R06.02 Shortness of breath; R07.9 Chest pain, unspecified; R06.09 Other forms of dyspnea; I49.8 Other specified cardiac arrhythmias | CPT/HCPCS: 36415; 80048; 83880; 93005; 99214 ==

== ENCOUNTER 2025-08-09 10:57 | Outpatient (CLI) | payer MEDICARE, SELFPAY ==
--- NOTE | 2025-08-09 11:15 | USCV_ITS ---
Oscar Telles Age: 85 Gender: M : 1940 Exam Date: 08/09/2025 11:33 Ordering Phys: Rosario Girard MD ([email or web address]) Technologist: Exam Location: [facility] [place] Indication: cp BP: 120 / 70 HR: 80 Rhythm: Sinus Technical Quality: Adequate MEASUREMENTS (Male / Female) Normal Values 2D ECHO LV Diastolic Diameter PLAX 4.0 cm 4.2 - 5.9 / 3.9 - 5.3 cm IVS Diastolic Thickness 1.4 cm 0.6 - 1.0 / 0.6 - 0.9 cm IVS Systolic Thickness 1.7 cm LVPW Diastolic Thickness 1.4 cm 0.6 - 1.0 / 0.6 - 0.9 cm LVPW Systolic Thickness 2.0 cm LVOT Diameter 2.3 cm LV Ejection Fraction 2D Teich 64.2 % LV Ejection Fraction MOD 4C 65.4 % LV Ejection Fraction MOD 2C 67.8 % LV Ejection Fraction 2C AL 68.6 % LA Diameter 3.5 cm RA Systolic Volume 4C AL 25.7 ml RA Systolic Volume 4C MOD 23.3 ml Aorta at Sinotubular Diameter 3.1 cm DOPPLER AV Peak Velocity 207.8 cm/s MV Peak Velocity 116.0 cm/s MV Area PHT 4.2 cm squared Mitral E to A Ratio 0.4 TV Peak Velocity 212.5 cm/s TR Peak Velocity 226.0 cm/s TR Peak Gradient 20.4 mmHg TV Peak E Velocity 93.0 cm/s PV Peak Velocity 127.0 cm/s FINDINGS Left Ventricle Normal left ventricular size and systolic function, ejection fraction of 65%. Mild to moderate concentric left ventricular hypertrophy. Grade I/IV diastolic dysfunction (abnormal relaxation filling pattern), normal to mildly elevated filling pressures. Right Ventricle Normal right ventricular size and systolic function. Right Atrium Normal right atrial size. Left Atrium Mildly increased left atrial size. IA Septum Normal appearance of the interatrial septum. Mitral Valve Moderate mitral annular calcification. Aortic Valve Aortic valve sclerosis. Tricuspid Valve Trace tricuspid valve regurgitation. Pulmonic Valve Mild pulmonary valve regurgitation. Pericardium No pericardial effusion. Aorta Normal aortic annulus size. IVC Inferior vena cava not visualized. CONCLUSIONS Normal left ventricular size and systolic function, ejection fraction of 65%. Mild to moderate concentric left ventricular hypertrophy. Grade I/IV diastolic dysfunction (abnormal relaxation filling pattern), normal to mildly elevated filling pressures. Moderate mitral annular calcification. Aortic valve sclerosis. Trace tricuspid valve regurgitation. Estimated pulmonary artery peak systolic pressure possibly within normal limits Mildly increased left atrial size. There is no pericardial effusion. There are no intracardiac masses. Compared to the study from 01/23/2023 there is development of left-ventricular diastolic dysfunction Dr Rosario Girard MD FAC (Electronically Signed) Final Date: 12 August 2025 19:35 S
== END 2025-08-09 10:58 | disposition home or self-care (01) ==
LOC: RAD 10:59
PROVIDERS: PCP Nurse Practitioner; Visit Provider Internal Medicine Cardiovascular Disease
DX: R06.09 Other forms of dyspnea (principal)
CPT/HCPCS: 93306

== ENCOUNTER → 2025-08-28 15:07 | Outpatient (BNVA) | payer MEDICARE, SELFPAY | PROVIDERS: PCP Nurse Practitioner; Visit Provider Orthopaedic Surgery | DX: S22.080A Wedge compression fracture of T11-T12 vertebra, initial encounter for closed fracture (principal); M48.062 Spinal stenosis, lumbar region with neurogenic claudication; X58.XXXA Exposure to other specified factors, initial encounter; M79.604 Pain in right leg; M79.605 Pain in left leg | CPT/HCPCS: 72100; 99214 ==